=== PATIENT | female | born 1980 | race Caucasian/White ===

== ENCOUNTER → 2018-01-29 10:55 | Outpatient (CLI) | payer OTHER, SELFPAY ==
--- NOTE | 2018-01-29 11:01 | RAD_ITS ---
STUDY: X-RAY - ABDOMEN/PELVIS REASON FOR EXAM: Female, 37 years old. Lower abdominal pain. Diarrhea. TECHNIQUE: AP supine and upright views of the abdomen and pelvis. COMPARISON: None. FINDINGS: Normal visualized lung bases. There is a moderate amount of colonic fecal material. There is no demonstrated free abdominal air. The visualized liver, spleen and kidneys are grossly normal in size and morphology. Bilateral tubal ligation. Normal visualized osseous structures. RAD/Abd Inc Decub and/or Erect IMPRESSION: Moderate amount of fecal material is seen in the colon. Electronically Signed: Arnoldo Eduardo MD at 11:30 EDT Tel [phone], Service support ,
[2018-01-29 12:10] LABS: Absolute Lymphocyte Count 1.42 X10^3/ul (0.83-4.51); Absolute Neutrophil Count 4.2 X10^3/uL (2.0-7.7); Basophil# 0.04 X10^3/uL; Basophil% 0.6 % (0-1); Eosinophil# 0.15 X10^3/uL; Eosinophils% 2.4 % (0-5); Hematocrit 44.3 % (37-47); Hemoglobin 14.7 g/dl (12.0-15.0); Lymphocyte # 1.42 X10^3/ul (4.0); Mean Corp Hgb Conc 33.2 g/gl (32-36); Mean Corpuscular Hgb 29.5 pg (27.0-32.0); Mean Platelet Vol. 12.4 fl (6.2-12.0); Monocyte% 6.5 % (0-10); Neutrophil # 4.15 X10^3/uL (2.7-7.7); Neutrophil % 67.3 % (47-70); Platelet Count 200 K/mm3 (150-450); RBC Distribution Width CV 12.9 % (11.6-14.6); RBC Distribution Width SD 42.1 fl (35.1-43.9); Red Blood Count 4.98 M/mm3 (4.2-5.4); White Blood Count 6.2 K/mm3 (4.4-11.0)
[2018-01-29 12:17] LABS: POSITIVE COUNT NO; POSITIVE DIFFERENTIAL NO; POSITIVE MORPHOLOGY NO
[2018-01-29 12:21] LABS: ALB/GLOB Ratio 1.4 RATIO (0.9-2.4); AST(SGOT) 13 U/L (15-37); Alanine Aminotransfer ALT/SGPT 24 U/L (13-56); Albumin, Serum 4.2 g/dL (3.2-5.0); Alkaline Phosphatase 85 U/L (45-117); Anion Gap 6 (5-15); BUN 17 mg/dL (7-18); BUN/Creat Ratio 22.3 RATIO (10-20); Calcium,Total 8.7 mg/dL (8.5-10.1); Chloride 110 mmol/L (98-107); Creatinine, Serum 0.76 mg/dL (0.55-1.02); EST Glomerular Filtration Rate 90 mL/min (>60); Est Glom Filt Rate - Afr Amer 109 mL/min (>60); Globulin 2.9 g/dL (2.2-4.2); Glucose 93 mg/dL (74-106); Potassium 4.2 mmol/L (3.5-5.1); Protein, Total 7.1 g/dL (6.4-8.2); Sodium Level 143 mmol/L (136-145)
== END ==
PROVIDERS: Family Provider Family Medicine; PCP Family Medicine; Visit Provider Nurse Practitioner Adult Health
DX: R53.83 Other fatigue (principal); R10.30 Lower abdominal pain, unspecified
CPT/HCPCS: 36415; 74019; 80053; 85025

== ENCOUNTER 2018-02-18 08:16 | Day surgery (SDC) | payer OTHER, SELFPAY ==
[2018-02-18] VITALS (7 sets, daily range): BP systolic 81–125; BP diastolic 47–77; PULSE 79–99; RESP 18–20; TEMP 36.5–36.7; O2SAT 99–100; BMI 34.7
--- NOTE | 2018-02-18 | COLBX_PTH ---
PATIENT: NASRIN TALLEY LOC: EN U#:[id number] AGE/SX: 37/F ROOM: RE02/18/[address]: Dr. Joel Barbour MD : 1980 BED: DIS: 02/18/2018 SPEC #: [id number] RECD: 02/18/18 13:32 STATUS: BRADY REJesus #: [id number] RIGO: 02/18/18 00:[address]: Joel Barbour DEPT: SURGICAL PATHOLOGY RECD BY: Lew Murdock ENTERED: 02/18/18 13:32 SP TYPE: COLON BX OTHR DR: Dr. Socrates Wiseman MD Tissues: COLON BIOPSY Procedures: Surgery Specimen Level IV HEADER OPERATION: Colonoscopy PRE-OP DIAGNOSIS: Screen TISSUE SUBMITTED: Random colonic biopsy MICROSCOPIC DIAGNOSIS Colon, random biopsy: Fragments of colonic mucosa, no pathologic diagnosis. SJ:soumya 02/19/18 MICROSCOPIC DESCRIPTION Slides are reviewed. GROSS DESCRIPTION Received in fixative is one container labeled with the patient's name and designated random colonic biopsy. The specimen consists of multiple irregular fragments of light hogue soft tissue that in aggregate measure 1.5 x 0.4 x 0.1 cm. The specimen is totally submitted in one cassette. / SJ:soumya 02/18/18 TC:4 CPT: 28017
--- NOTE | 2018-02-18 09:32 | OP.PCM_ITS ---
Problem List (1) Hemorrhage of anus and rectum Status: Acute Report of Operation Date of Procedure: 02/18/18 Pre-Operative Diagnosis: k62.5 rectal bleeding Post-Operative Diagnosis: Same Surgery/Procedure Performed:: [id number] colonoscopy with random colonic biopsies Type of Anesthesia:: MAC Anesthesiologist: Sher Potts Description of Procedure: Patient was brought into the endoscopy suite. Placed on the left lateral decubitus position. Was given graded anesthesia. The scope was inserted into the rectum. The scope was directed through the sigmoid colon, descending colon , transverse colon, ascending colon, and into the cecum. Operative findings: 1. Cecum: Normal appearance no mass lesions normal ileocecal valve. 2. Ascending colon: Normal appearance no mass lesions. 3. Transverse colon: Normal appearance no mass lesions. 4. Descending colon: Normal appearance no mass lesions. 5. Sigmoid colon: Normal appearance no mass lesions a few scattered diverticuli were seen all small mouth. 6. Rectum: Normal appearance no mass lesions she had a few internal hemorrhoids identified. Random colonic biopsies were performed from the cecum to the rectum. The mucosa all look normal throughout the colon. With a few internal hemorrhoids I believe this is the most likely source of the bleeding. Scope was withdrawn digital rectal exam was performed showing no masses within the anus. Patient had an excellent bowel prep the mucosal all look normal she has a stable colonoscopy and will not need to have a repeat colonoscopy for 10 years. - Admit VTE Documentation VTE Present on Admission: No VTE Mechan Device Prophylaxis: None VTE Pharm Prophylaxis ordered?: No Reason prophylaxis not ordered:: Treatment Not Indicated
== END 2018-02-18 10:20 | disposition home or self-care (01) ==
LOC: EN 08:17 → AC 08:18
PROVIDERS: Family Provider Family Medicine; PCP Family Medicine; Visit Provider Surgery
PROC: 0DJD8ZZ Inspection of Lower Intestinal Tract, Via Natural or Artificial Opening Endoscopic (ICD-10-PCS; CPT 45378; principal; 2018-02-18 09:25)
DX: K64.8 Other hemorrhoids (principal); J45.909 Unspecified asthma, uncomplicated; K21.9 Gastro-esophageal reflux disease without esophagitis; E28.2 Polycystic ovarian syndrome
CPT/HCPCS: 45380; 88305; J7120

== ENCOUNTER 2018-02-20 01:51 | Emergency (ER) | payer OTHER, SELFPAY ==
[2018-02-20 01:52] VITALS: BP 145/104; PULSE 18; RESP 16; TEMP 36.8; O2SAT 99; BMI 35.9
[2018-02-20] MEDS: Dicyclomine 20 MG/2 ML Vial IM (02:31)
[2018-02-20 02:32] LABS: Bacteria 0 SEEN /hpf (None Seen); Mucous, Urine 0 SEEN /hpf (<or=2+); Red Blood Cells-Urine 0 SEEN /hpf (0-5)
--- NOTE | 2018-02-20 02:33 | ED.VIS.GEN ---
History of Present Illness Chief Complaint: Abd Pain Informant: Patient Onset: Hours - 9 Context: Gradual Onset Timing: Continuous Quality: dull ache w/ intermittent sharp pains Location: suprapubic Current Severity: Moderate Maximum Severity: Moderate Worsened by: nothing Relieved by: nothing despite passing flatus Associated Symptoms: some discomfort in low back, unk if related. no fevers, n/v. Narrative: Has been having small amounts of bright red blood per rectum for the past couple months, and had a colonoscopy 2 days ago in workup for this. Performed by Dr. Barbour, patient states that he told her everything looked fine but we are awaiting biopsies to look for signs of microcolitis. She has been eating and drinking but has not had a bowel movement since her colonoscopy yet, although she is passing flatus. She did not have these pains prior to the colonoscopy, and the day afterwards was uneventful. She denies any bladder symptoms, vaginal discharge or bleeding. Her last normal menstrual period was about 3 weeks ago and she has been regular. Prior similar symptoms: No Past Medical History - Allergies and Home Meds Allergies/Adverse Reactions: Allergies No Known Allergies Allergy (Verified 02/20/18 01:55) Home Medications: Home Medications Medication Instructions Recorded albuterol sulfate HFA 90 2 puff INHALATION Q6H 02/02/18 mcg/actuation aerosol inhaler docusate sodium 100 mg capsule 100 mg PO BID 02/02/18 Naproxen [Naprosyn] 500 mg PO BID PRN #20 tab 02/20/18 Primary Care Physician: Socrates Wiseman MD [Primary Care Provider] - Doctors: Dr. Barbour Past Medical History: None Smoking Status: Never smoker Drugs: None Review of Systems All systems negative except as indicated Gastrointestinal: Reports: Abdominal pain, Hematochezia Musculoskeletal: Reports: Back pain - low, nonlateralizing. has noticed off and on since having BRBPR. Physical Exam Vital Signs/Narrative: Vital Signs Temp Pulse Resp BP Pulse Ox 02/20/18 01:52 98.2 F 18 L 16 145/104 H 99 Inital Vital Signs reviewed: Yes General: Well nourished, Well developed, - - well-appearing, no acute distress Head: Normocephalic, Atraumatic Eyes: Perrl, EOMI ENT: Moist mucous membranes, No rhinorrhea Neck: Supple, Nontender Cardiovascular: Regular rate, Regular rhythm, No murmurs Respiratory: No distress, CTA bilaterally, Chest nontender Abdomen: Soft, Nondistended, Normal bowel sounds, No masses, Tender - suprapubic and LLQ. Negative for: Guarding, Rebound tenderness Back: Nontender, Normal Inspection. Negative for: CVA tenderness Extremities: Nontender, No edema Skin: Normal color, No rash Neurological: Alert, Oriented x3, Cranial nerves II-XII grossly intact, Normal Strength, Normal Sensation, Normal Gait Psychological: Normal affect Diagnostic/Tx/Re-eval Impressions Abdomen/Pelvis CT 02/20/18 03:23 IMPRESSION: No evidence of acute intestinal pathology or acute obstructive uropathy. Free pelvic fluid. A mass projects from the left anterior uterus measuring 4.0 x 3.6 cm, likely a fibroid. Supraumbilical anterior abdominal wall fat herniation. Electronically Signed: Tone Schwartz MD at 3:59 EDT Tel , Service support , 02/20/18 03:23 CT Abd [Abdomen/Pelvis without Cont] [CT] Stat Laboratory Results 02/20/18 02/20/18 02/20/18 Range/Units 02:02 02:02 02:10 WBC 7.5 (4.4-11.0) K/mm3 RBC 4.80 (4.2-5.4) M/mm3 Hgb 13.9 (12.0-15.0) g/dl Hct 41.9 (37-47) % MCV 87.3 (81-99) fL MCH 29.0 (27.0-32.0) pg MCHC 33.2 (32-36) g/gl RDW 12.7 (11.6-14.6) % RDW Differential 40.8 (35.1-43.9) fl Plt Count 185 (150-450) K/mm3 MPV 12.1 H (6.2-12.0) fl Immature Gran % (Auto) 0.100 (0.0-0.9) % Neut % (Auto) 61.3 (47-70) % Lymph % (Auto) 28.9 (19-41) % [place] % (Auto) 6.1 (0-10) % Eos % (Auto) 3.3 (0-5) % Baso % (Auto) 0.3 (0-1) % Absolute Neuts (auto) 4.6 (2.0-7.7) X10^3/uL Absolute Lymphs (auto) 2.17 (0.83-4.51) X10^3/ul Total Counted Not Reportable Sodium (136-145) mmol/L Potassium (3.5-5.1) mmol/L Chloride (98-107) mmol/L Carbon Dioxide (21.0-32.0) mmol/L Anion Gap (5-15) BUN (7-18) mg/dL Creatinine (0.55-1.02) mg/dL Estim Creat Clear Calc ml/min Est GFR (MDRD) Af Amer (>60) mL/min Est GFR (MDRD) Non-Af (>60) mL/min BUN/Creatinine Ratio (10-20) RATIO Glucose (74-106) mg/dL Calcium (8.5-10.1) mg/dL Urine Color Yellow (Yellow) Urine Clarity Clear (Clear) Urine pH 6.0 (5.0 - 8.0) Ur Specific [place] 1.025 (1.002-1.030) Urine Protein 15 H (Negative) mg/dl Urine Glucose (UA) Normal (Normal) mg/dl Urine Ketones Negative (Negative) mg/dl Urine Occult Blood Negative (Negative) /ul Urine Nitrite Negative (Negative) Urine Bilirubin Negative (Negative) mg/dL Urine Urobilinogen Normal (Normal) mg/dl Ur Leukocyte Esterase 25 H (Negative) /ul Urine RBC 0 SEEN (0-5) /hpf Urine WBC 0-5 SEEN (0-5) /hpf Ur Squamous Epith Cells 5-10 SEEN (5-10) /hpf Urine Bacteria 0 SEEN (None Seen) /hpf Urine Mucus 0 SEEN (<or=2+) /hpf Urine Test Negative Negative 02/20/18 Range/Units 02:10 WBC (4.4-11.0) K/mm3 RBC (4.2-5.4) M/mm3 Hgb (12.0-15.0) g/dl Hct (37-47) % MCV (81-99) fL MCH (27.0-32.0) pg MCHC (32-36) g/gl RDW (11.6-14.6) % RDW Differential (35.1-43.9) fl Plt Count (150-450) K/mm3 MPV (6.2-12.0) fl Immature Gran % (Auto) (0.0-0.9) % Neut % (Auto) (47-70) % Lymph % (Auto) (19-41) % [place] % (Auto) (0-10) % Eos % (Auto) (0-5) % Baso % (Auto) (0-1) % Absolute Neuts (auto) (2.0-7.7) X10^3/uL Absolute Lymphs (auto) (0.83-4.51) X10^3/ul Total Counted Sodium 141 (136-145) mmol/L Potassium 3.7 (3.5-5.1) mmol/L Chloride 108 H (98-107) mmol/L Carbon Dioxide 27.0 (21.0-32.0) mmol/L Anion Gap 6 (5-15) BUN 17 (7-18) mg/dL Creatinine 0.88 (0.55-1.02) mg/dL Estim Creat Clear Calc 81.94 ml/min Est GFR (MDRD) Af Amer 93 (>60) mL/min Est GFR (MDRD) Non-Af 77 (>60) mL/min BUN/Creatinine Ratio 19.4 (10-20) RATIO Glucose 104 (74-106) mg/dL Calcium 8.6 (8.5-10.1) mg/dL Urine Color (Yellow) Urine Clarity (Clear) Urine pH (5.0 - 8.0) Ur Specific [place] (1.002-1.030) Urine Protein (Negative) mg/dl Urine Glucose (UA) (Normal) mg/dl Urine Ketones (Negative) mg/dl Urine Occult Blood (Negative) /ul Urine Nitrite (Negative) Urine Bilirubin (Negative) mg/dL Urine Urobilinogen (Normal) mg/dl Ur Leukocyte Esterase (Negative) /ul Urine RBC (0-5) /hpf Urine WBC (0-5) /hpf Ur Squamous Epith Cells (5-10) /hpf Urine Bacteria (None Seen) /hpf Urine Mucus (<or=2+) /hpf Urine Test Negative - Medical Decision Making Initially labs were obtained, they are all normal including a white blood count and differential. She was given Bentyl, but it did not help at all and she wanted something else for pain. I reviewed her colonoscopy report and she did have some diverticuli in the sigmoid colon. Given her left lower quadrant tenderness, I chose to CT her to verify that she did not have early acute diverticulitis. The CT showed no signs of colonic inflammation or stranding, but did show some free fluid and a mass coming off of the uterus that appeared consistent with a fibroid. It is plausible that she ruptured an ovarian cyst that would be responsible for the free fluid. She has nothing suggesting hemorrhage. She is clinically and hemodynamically stable and feels better after a dose of morphine. Will discharge her home to follow-up with her SENIOR NURSE MANAGER for further evaluation, ultrasound is not available at this hour in the middle of the night, I do not think she needs emergently evaluated for torsion or other emergency ovarian process. She is comfortable with this plan will take NSAIDs as needed for pain. ED Disposition - Plan for ED Patient: Disposition: Home or Assisted Living Chief Complaint: Abd Pain Diagnosis: LLQ abdominal pain, Diverticulosis Instructions: ED Pelvic Pain [facility] Prescriptions: Naproxen [Naprosyn] 500 mg PO BID PRN #20 tab Referrals: Socrates Wiseman MD [Primary Care Provider] - 3-5 Days if not improving (or with your SENIOR NURSE MANAGER)
[2018-02-20 02:35] LABS: Color, Urine Yellow (Yellow); Glucose, Dipstick Normal (Normal); Ketone-Dipstick Negative (Negative); Leukocyte Esterase-Dipstick 25 /ul (Negative); Nitrite-Dipstick Negative (Negative); Occult Blood-Urine Negative /ul (Negative); Protein-Dipstick 15 mg/dl (Negative); Specific Gravity, Urine 1.025 (1.002-1.030); Urine Bilirubin Dipstick Negative (Negative); Urine Clarity Clear (Clear); Urine Urobilinogen Normal (Normal)
[2018-02-20 02:38] LABS: Absolute Lymphocyte Count 2.17 X10^3/ul (0.83-4.51); Absolute Neutrophil Count 4.6 X10^3/uL (2.0-7.7); Basophil# 0.02 X10^3/uL; Basophil% 0.3 % (0-1); Eosinophil# 0.25 X10^3/uL; Eosinophils% 3.3 % (0-5); Hematocrit 41.9 % (37-47); Hemoglobin 13.9 g/dl (12.0-15.0); Lymphocyte # 2.17 X10^3/ul (4.0); Lymphocyte % 28.9 % (19-41); Mean Corp Hgb Conc 33.2 g/gl (32-36); Mean Corpuscular Volume 87.3 fL (81-99); Mean Platelet Vol. 12.1 fl (6.2-12.0); Monocyte# 0.46 X10^3/uL; Monocyte% 6.1 % (0-10); Neutrophil # 4.59 X10^3/uL (2.7-7.7); Neutrophil % 61.3 % (47-70); Platelet Count 185 K/mm3 (150-450); RBC Distribution Width CV 12.7 % (11.6-14.6); RBC Distribution Width SD 40.8 fl (35.1-43.9); White Blood Count 7.5 K/mm3 (4.4-11.0)
[2018-02-20 02:39] LABS: POSITIVE COUNT NO; POSITIVE DIFFERENTIAL NO; POSITIVE MORPHOLOGY NO
[2018-02-20 02:39] LABS: Internal QC Validated? YES +Cl - CLEAR BKGD; Pregnancy, Urine Negative Negative
[2018-02-20 02:43] LABS: Anion Gap 6 (5-15); BUN 17 mg/dL (7-18); BUN/Creat Ratio 19.4 RATIO (10-20); Calcium,Total 8.6 mg/dL (8.5-10.1); Chloride 108 mmol/L (98-107); Creatinine, Serum 0.88 mg/dL (0.55-1.02); EST Glomerular Filtration Rate 77 mL/min (>60); Est Glom Filt Rate - Afr Amer 93 mL/min (>60); Estimated Creatinine Clearance 81.94 ml/min; Glucose 104 mg/dL (74-106); Potassium 3.7 mmol/L (3.5-5.1); Sodium Level 141 mmol/L (136-145)
[2018-02-20 02:46] LABS: Squamous Epithelial Cells - UA 5-10 SEEN /hpf (5-10); White Blood Cells 0-5 SEEN /hpf (0-5)
--- NOTE | 2018-02-20 03:23 | CT_ITS ---
STUDY: CT ABDOMEN AND PELVIS WITHOUT CONTRAST REASON FOR EXAM: Female, 37 years old. Left lower quadrant pain with recent colonoscopy RADIATION DOSAGE (If Supplied By Facility): CTDIvol = ( 18.35 ) mGy, DLP = ( 962.81 ) mGycm TECHNIQUE: Transaxial images were obtained from the dome of the diaphragm to the symphysis pubis without oral contrast, and without intravenous contrast. Sagittal and coronal images were reconstructed. Individualized dose optimization techniques were used for this CT. COMPARISON: None. FINDINGS: The visualized lung bases are unremarkable. The visualized portions of the heart are within normal limits. Normal liver. There is non-visualization of the gallbladder, which is reportedly absent. Normal spleen. Normal pancreas. Normal bilateral adrenal glands. Normal right kidney. Normal left kidney. Normal visualized stomach. Normal small intestine. Normal colon. The appendix is visualized and appears normal. Normal abdominal aorta. Normal inferior vena cava. Normal retroperitoneum. Normal urinary bladder. Fallopian tube clips. Free pelvic fluid. A mass projects from the left anterior uterus measuring 4.0 x 3.6 cm, likely a fibroid. Supraumbilical anterior abdominal wall fat herniation. Normal osseous structures. CT/Abdomen/Pelvis without Cont IMPRESSION: No evidence of acute intestinal pathology or acute obstructive uropathy. Free pelvic fluid. A mass projects from the left anterior uterus measuring 4.0 x 3.6 cm, likely a fibroid. Supraumbilical anterior abdominal wall fat herniation. Electronically Signed: Tone Schwartz MD at 3:59 EDT Tel , Service support ,
[2018-02-20] MEDS: Morphine 4 MG/ML Syringe IV (03:57)
[2018-02-20 03:58] VITALS: BP 101/67; PULSE 62; RESP 14; O2SAT 97
[2018-02-20] MEDS: Ondansetron 4 MG/2 ML Vial IV (04:30)
[2018-02-20 04:55] VITALS: BP 113/82; PULSE 66; RESP 18; O2SAT 98
== END 2018-02-20 04:56 | disposition home or self-care (01) ==
PROVIDERS: Emergency Provider Emergency Medicine; Family Provider Family Medicine; PCP Family Medicine
DX: R10.32 Left lower quadrant pain (principal); K57.90 Diverticulosis of intestine, part unspecified, without perforation or abscess without bleeding
CPT/HCPCS: 74176; 80048; 81001; 81025; 85025; 99285; A4216

== ENCOUNTER 2018-08-08 11:53 | Emergency (ER) | payer OTHER, SELFPAY ==
[2018-08-08 11:57] VITALS: BP 143/87; PULSE 88; RESP 22; TEMP 36.6; O2SAT 100; BMI 37.3
[2018-08-08] MEDS: Dicyclomine 20 MG/2 ML Vial IM (12:31)
[2018-08-08] MEDS: Ondansetron 4 MG/2 ML Vial IV (12:31)
[2018-08-08] MEDS: Ketorolac 30 MG/ML Syringe IV (12:31)
[2018-08-08] MEDS: 0.9% Normal Saline 1,000 ML 150 ML IV (12:31)
[2018-08-08 12:51] LABS: Absolute Lymphocyte Count 1.99 X10^3/ul (0.83-4.51); Absolute Neutrophil Count 15.2 X10^3/uL (2.0-7.7); Basophil# 0.01 X10^3/uL; Basophil% 0.1 % (0-1); Eosinophil# 0.13 X10^3/uL; Eosinophils% 0.7 % (0-5); Hematocrit 52.9 % (37-47); Hemoglobin 17.4 g/dl (12.0-15.0); Lymphocyte # 1.99 X10^3/ul (4.0); Lymphocyte % 10.7 % (19-41); Mean Corp Hgb Conc 32.9 g/gl (32-36); Mean Corpuscular Hgb 29.6 pg (27.0-32.0); Mean Corpuscular Volume 90.1 fL (81-99); Mean Platelet Vol. 11.6 fl (6.2-12.0); Monocyte# 1.17 X10^3/uL; Monocyte% 6.3 % (0-10); Neutrophil # 15.22 X10^3/uL (2.7-7.7); Neutrophil % 81.7 % (47-70); Platelet Count 219 K/mm3 (150-450); RBC Distribution Width CV 13.4 % (11.6-14.6); Red Blood Count 5.87 M/mm3 (4.2-5.4); White Blood Count 18.6 K/mm3 (4.4-11.0)
[2018-08-08 12:52] LABS: POSITIVE COUNT NO; POSITIVE DIFFERENTIAL NO; POSITIVE MORPHOLOGY NO
--- NOTE | 2018-08-08 13:00 | CT_ITS ---
STUDY: CT ABDOMEN AND PELVIS WITH CONTRAST REASON FOR EXAM: Female, 38 years old. Mid abdominal pain RADIATION DOSAGE (If Supplied By Facility): CTDIvol = ( 23.76 ) mGy, DLP = ( 1297.02 ) mGycm TECHNIQUE: Transaxial images were obtained from the dome of the diaphragm to the symphysis pubis with oral contrast. 100mL ml of Isovue 300 contrast was administered. Sagittal and coronal images were reconstructed. # Of Images Including Paperwork: [id number] Individualized dose optimization techniques were used for this CT. COMPARISON: 02/20/2018 FINDINGS: The visualized lung bases are unremarkable. The visualized portions of the heart are within normal limits. Liver is within normal limits as are the small flash fill hemangioma in the right lobe of the liver measuring roughly 1.4 cm. Normal gallbladder and extrahepatic biliary system. Normal spleen. Normal pancreas. Normal bilateral adrenal glands. Normal right kidney. Normal left kidney. Normal visualized stomach. Normal small intestine. In the region of the ascending colon, there is severe circumferential wall thickening and edema suggesting colitis. Remainder of the colon is essentially within normal limits for age There is non-visualization of the appendix. Normal abdominal aorta. Normal inferior vena cava. Normal retroperitoneum. Normal urinary bladder. Normal visualized uterus. Uterine fibroids are noted. Small amount of pelvic free fluid as well as fluid in the right paracolic gutter. There is a small umbilical hernia containing fat. There are diffuse degenerative changes of the visualized lumbar spine. CT/Abdomen/Pelvis WITH Contrast IMPRESSION: Circumferential wall thickening and edema involving the ascending colon suggesting colitis. Small amount of pelvic free fluid. Remaining findings are chronic as above Electronically Signed: Bogdan Hickey DO at 15:36 EDT Tel , Service support ,
[2018-08-08 13:05] LABS: AST(SGOT) 29 U/L (15-37); Alanine Aminotransfer ALT/SGPT 31 U/L (13-56); Albumin, Serum 3.8 g/dL (3.2-5.0); Alkaline Phosphatase 104 U/L (45-117); Anion Gap 7 (5-15); BUN 17 mg/dL (7-18); BUN/Creat Ratio 14.5 RATIO (10-20); Bilirubin, Direct 0.14 mg/dL (0.00-0.30); Calcium,Total 8.9 mg/dL (8.5-10.1); Chloride 103 mmol/L (98-107); Creatinine, Serum 1.17 mg/dL (0.55-1.02); EST Glomerular Filtration Rate 55 mL/min (>60); Est Glom Filt Rate - Afr Amer 67 mL/min (>60); Estimated Creatinine Clearance 61.03 ml/min; Globulin 3.4 g/dL (2.2-4.2); Glucose 117 mg/dL (74-106); Protein, Total 7.2 g/dL (6.4-8.2); Sodium Level 137 mmol/L (136-145)
[2018-08-08 13:11] LABS: Pregnancy, Serum, hCG Quali. NEGATIVE Negative (0-9 Nonpreg)
--- NOTE | 2018-08-08 13:57 | ED.DCSUM_ITS ---
- ER Visit Summary Date of Service: 08/08/18 Chief Complaint: Abdominal pain History of Present Illness: The patient is a 38 F who states she went to the restroom this morning had a bowel movement. She became lightheaded and sweaty. She felt nauseated and had diarrhea. After getting up from the commode she had abdominal cramping with occasional sharp stabbing pain. It does wrap around her side somewhat. She has had prior cholecystectomy. Physical Examination: Vital signs unremarkable. Patient is lying in bed no acute distress. Head neck examination reveals flushed cheeks, but otherwise unremarkable. Heart is regular rate and rhythm. Lung sounds are clear. Abdomen is soft with mild diffuse tenderness. No guarding or rebound. Hypoactive bowel sounds are noted throughout. Test Results: CBC was a white count of 18.6 with 81% neutrophils. Hemoglobin is concentrated at 17.4. Chemistry studies significant for a creatinine of 1.17. LFTs normal. test negative. Urinalysis is unremarkable. CT abdomen pelvis with contrast reveals circumferential wall thickening and edema involving the ascending colon suggestive of colitis. Emergency Department Course and Treatment: Patient was given Toradol, Zofran, Bentyl, and IV fluids. On repeat evaluation she is resting comfortably. CT staff did advise that her IV contrast did infiltrate in her left upper arm. This was reevaluated and is not tender at this time. Test results are discussed with the patient and family at bedside. She just underwent colonoscopy in February of this year with no evidence of ulcerative colitis, Crohn's disease, etc. Patient be treated with Cipro and Flagyl, first doses given here. She is advised to follow with her primary care physician in 1 week. Treatment Plan: [] Disposition: Discharge Impression: Colitis This note was generated with [employer] dictation software. It may contain incorrect words, spelling, and punctuation that were not noted in review of the chart prior to signing ED Disposition - Plan for ED Patient: Chief Complaint: Abd Pain Referrals: Socrates Wiseman MD [Primary Care Provider] -
[2018-08-08 14:00] VITALS: BP 138/78; PULSE 78; RESP 16; O2SAT 98
[2018-08-08 14:45] LABS: Bacteria 0 SEEN /hpf (None Seen); Mucous, Urine 0 SEEN /hpf (<or=2+); Red Blood Cells-Urine 0 SEEN /hpf (0-5)
[2018-08-08 14:47] LABS: Color, Urine Yellow (Yellow); Glucose, Dipstick Normal (Normal); Ketone-Dipstick Negative (Negative); Leukocyte Esterase-Dipstick 25 /ul (Negative); Nitrite-Dipstick Negative (Negative); Occult Blood-Urine Negative /ul (Negative); Protein-Dipstick 30 mg/dl (Negative); Specific Gravity, Urine 1.025 (1.002-1.030); Urine Bilirubin Dipstick Negative (Negative); Urine Clarity Sl. Cloudy (Clear); Urine Urobilinogen Normal (Normal)
[2018-08-08 14:52] LABS: Squamous Epithelial Cells - UA 0-5 SEEN /hpf (5-10); White Blood Cells 0-5 SEEN /hpf (0-5)
--- NOTE | 2018-08-08 15:50 | ED.DEP ---
ED Disposition - Plan for ED Patient: Disposition: Home or Assisted Living Chief Complaint: Abd Pain Instructions: ED Gastroenteritis Bacterial Prescriptions: proMETHazine tablet [Phenergan] 25 mg PO Q6H PRN PRN #10 tablet PRN Reason: Nausea Dicyclomine HCl [Bentyl] 20 mg PO TIDAC #20 capsule Ciprofloxacin [Cipro] 500 mg PO BID #20 tablet Metronidazole [Flagyl] 500 mg PO Q6H #40 tablet Referrals: Socrates Wiseman MD [Primary Care Provider] - 1 Week
[2018-08-08] MEDS: Ciprofloxacin 500 MG Tablet PO (16:05)
[2018-08-08] MEDS: metroNIDAZOLE 500 MG Tablet PO (16:05)
[2018-08-08 16:10] VITALS: BP 96/69; PULSE 76; RESP 16; O2SAT 99
--- NOTE | 2018-08-08 16:11 | ED.RN ---
REVIEWED D/C INSTRUCTIONS, FOLLOW UP CARE, PRESCRIPTIONS, AND S/S THAT WOULD WARRANT A RETURN TO THE ED WITH PT. PT VERBALIZED AN UNDERSTANDING AND DENIES FURTHER QUESTIONS FOR THIS RN. PT SKIN P/W/D, RESP EVEN AND UNLABORED, PT A&O X 3, NO DISTRESS NOTED. PT AMBULATED OUT OF ED, GAIT STEADY.
== END 2018-08-08 16:13 | disposition home or self-care (01) ==
PROVIDERS: Emergency Provider Emergency Medicine; Family Provider Family Medicine; PCP Family Medicine
DX: K52.9 Noninfective gastroenteritis and colitis, unspecified (principal); Z90.49 Acquired absence of other specified parts of digestive tract; K21.9 Gastro-esophageal reflux disease without esophagitis; J45.909 Unspecified asthma, uncomplicated; E28.2 Polycystic ovarian syndrome
CPT/HCPCS: 74177; 80048; 80076; 81001; 84703; 85025; 99285; J7030; J7040; Q9967; A4216; J2405

== ENCOUNTER → 2018-11-27 14:31 | Outpatient (CLI) | payer OTHER, SELFPAY ==
--- NOTE | 2018-11-27 14:34 | BI_ITS ---
MAMMOGRAPHY - BILATERAL SCREENING REASON FOR EXAM: Female, 38 years old. Routine annual screening examination. PERTINENT HISTORY: Non-contributory. TECHNIQUE: Digital bilateral breast marlene (3D mammographic acquisition) in the CC and MLO projections. 2-D mediolateral oblique (MLO) and craniocaudad (CC) views of both breasts were obtained. CAD: Full Field Digital Mammography with Computer Added Detection was performed. COMPARISON: None. Baseline examination. FINDINGS: Breast Composition: There are scattered areas of fibroglandular density. There are no dominant masses or suspicious calcifications. No other significant abnormalities are identified. BI/SCREENING MAMM (CAD), BILAT IMPRESSION: Negative screening mammogram. Yearly followup mammogram recommended. (A) ASSESSMENT CATEGORY: BIRADS Category 1: Negative. A letter regarding these results will be sent to the patient by the facility within 30 days. Approximately 10% of breast cancers are not detected by mammography. A normal mammogram should not delay biopsy of a clinically suspicious abnormality. [id number] Electronically Signed: Arnoldo Eduardo MD at 8:56 EST , Service support ,
== END ==
PROVIDERS: Family Provider Family Medicine; PCP Family Medicine; Referring Provider Obstetrics & Gynecology; Visit Provider Obstetrics & Gynecology
DX: Z12.31 Encounter for screening mammogram for malignant neoplasm of breast (principal)
CPT/HCPCS: 77063; 77067

== ENCOUNTER → 2019-01-25 | Outpatient (CLI) | payer OTHER, SELFPAY ==
--- NOTE | 2019-01-25 09:05 | RAD_ITS ---
STUDY: X-RAY - ESOPHAGUS (BARIUM SWALLOW) WITH FLUOROSCOPY REASON FOR EXAM: Female, 38 years old. Dysphagia for solids. TECHNIQUE: 17 view(s) of the esophagus were obtained following swallowing of barium. FLUOROSCOPY TIME (if supplied): (0:52) minutes/seconds COMPARISON: None. FINDINGS: There is no demonstrated esophageal foreign body. There is no demonstrated stricture or mucosal abnormality. Normal gastroesophageal junction, without a demonstrated hiatal hernia. The patient ingested a 12 mm tablet of barium. The tablet is trapped in the distal portion of the esophagus although no anatomical region is seen. Normal visualized aortic arch and descending thoracic aorta. Normal visualized pulmonary parenchyma. Normal visualized osseous structures of the thorax. RAD/Esophagus Only IMPRESSION: Normal plain film x-ray examination (barium swallow) of the esophagus. The 12 mm tablet of barium is trapped in the distal esophagus. Electronically Signed: Arnoldo Eduardo, at 9:10 EDT , Service support ,
== END | disposition home or self-care (01) ==
LOC: RAD 08:59
PROVIDERS: Family Provider Family Medicine; PCP Family Medicine; Referring Provider Family Medicine; Visit Provider Family Medicine
DX: R13.10 Dysphagia, unspecified (principal)
CPT/HCPCS: 74220

== ENCOUNTER 2019-07-15 21:29 | Emergency (ER) | payer OTHER, SELFPAY ==
[2019-07-15 21:30] VITALS: BP 160/103; PULSE 85; RESP 18; TEMP 36.8; O2SAT 97; BMI 36.3
[2019-07-15] MEDS: DiphenhydrAMINE 50 MG/ML Syringe 25 MG IV (21:57)
[2019-07-15] MEDS: Ketorolac 30 MG/ML Syringe 15 MG IV (21:57)
[2019-07-15] MEDS: Metoclopramide 10 MG/2 ML Vial IV (21:58)
--- NOTE | 2019-07-15 22:07 | ED.VIS.GEN ---
History of Present Illness Chief Complaint: Headache Detail of Chief Complaint: Lateral throbbing headache with eye droop Informant: Patient, Significant Other Onset: Today Context: Sudden Onset Timing: Continuous Quality: Throbbing headache Location: Left side Current Severity: Moderate Maximum Severity: Severe Worsened by: Light Relieved by: Nothing Associated Symptoms: Nausea Narrative: Patient is a 39-year-old woman with history of migraine headaches who presents with unilateral headache. She is concerned she has a eyelid droop. She denies any itching. Denies drainage from the eyes. She does complain of mild photophobia. She denies sonophobia. She denies vomiting. She denies neck pain or neck stiffness. Denies trouble with speech or swallowing. She denies troubles with balance.She has no URI symptoms or congestion. She denies cardiac respiratory symptoms. She denies urologic symptoms. Prior similar symptoms: Yes Recent Illness/Hospitalization: No - Past Medical History (1) History of migraine headaches Status: Acute (2) Hemorrhage of anus and rectum Status: Acute Past Medical History - Allergies and Home Meds Allergies/Adverse Reactions: Allergies No Known Allergies Allergy (Verified 07/15/19 21:33) Primary Care Physician: Socrates Wiseman MD [Primary Care Provider] - Prior records reviewed: Yes Surgical History: no surgical history Lives: Spouse/ Significant Other Smoking Status: Never smoker Alcohol: None Drugs: None Review of Systems General: Denies: Chills, Fever, Malaise, Sweats Eyes: Reports: - - Photophobia. Denies: Visual changes - bilaterally, Blurred Vision - bilaterally, Diplopia ENT: Denies: Bilateral ear pain, Rhinorrhea, Sore throat Cardiovascular: Denies: Chest pain Respiratory: Denies: Dyspnea, Cough, Dyspnea on exertion Genitourinary: Denies: Dysuria, Hematuria, Frequency Musculoskeletal: Denies: Myalgias, Arthralgias, Neck pain, Back pain, Swelling, Extremity Pain, -, - Skin: Denies: Rash, Wounds Neurological: Reports: Headache. Denies: Weakness, Parasthesia, Numbness Hematologic: Denies: Easy bruising, Easy bleeding, Lymphadenopathy, -, - Allergy: Denies: Uticaria, Swelling of the mouth, Swelling of the tongue, -, - Physical Exam Vital Signs/Narrative: Vital Signs Temp Pulse Resp BP Pulse Ox 07/15/19 21:30 98.2 F 85 18 160/103 H 97 Inital Vital Signs reviewed: Yes General: Well nourished, Well developed, No Acute Distress Head: Normocephalic, Atraumatic Eyes: Perrl, EOMI. Negative for: Pale conjunctiva, Scleral icterus ENT: Moist mucous membranes, No rhinorrhea, TM's clear Neck: Supple, Nontender, No lymphadenopathy, No JVD Cardiovascular: Regular rate, Regular rhythm, No murmurs, Normal S1, Normal S2 Respiratory: No distress, CTA bilaterally, Chest nontender Abdomen: Soft, Nontender, Nondistended, Normal bowel sounds Rectal: Deferred Back: Nontender, Normal Inspection Extremities: Nontender, No edema Skin: Normal color, No rash, No Trauma. Negative for: Cyanosis, Diaphoresis, Jaundice Neurological: Alert, Oriented x3, Cranial nerves II-XII grossly intact, Normal Strength, Normal Sensation, Normal DTR, Normal Gait Psychological: Depressed Diagnostic/Tx/Re-eval - Medical Decision Making With history of migraines and unilateral throbbing headache associated with photophobia and nausea will treat for migraine headache. She received IV Benadryl, Reglan and Toradol. Will reassess 30 to 60 minutes after she receives the medication. She was reassessed at 2240. Patient improved her headache. She is smiling. Plan is to discharge to home ED Disposition - Plan for ED Patient: Disposition: Home or Assisted Living Diagnosis: Migraine headache without aura, Edema of left upper eyelid Instructions: ED, Migraine (Classical) Referrals: Socrates Wiseman MD [Primary Care Provider] - As Needed
[2019-07-15 23:02] VITALS: BP 148/78
== END 2019-07-15 23:03 | disposition home or self-care (01) ==
PROVIDERS: Emergency Provider Emergency Medicine; Family Provider Family Medicine; PCP Family Medicine
DX: G43.009 Migraine without aura, not intractable, without status migrainosus (principal); F32.9 Major depressive disorder, single episode, unspecified
CPT/HCPCS: 96374; 96375; 99283; J7030; A4216

== ENCOUNTER → 2019-09-23 13:51 | Outpatient (CLI) | payer OTHER, SELFPAY ==
--- NOTE | 2019-09-23 13:54 | BI_ITS ---
MAMMOGRAPHY - BILATERAL DIAGNOSTIC REASON FOR EXAM: Female, 39 years old. One-week history of left breast pain. PERTINENT HISTORY: Non-contributory. TECHNIQUE: Digital bilateral breast marlene (3D mammographic acquisition) in the CC and MLO projections. 2-D mediolateral oblique (MLO) and craniocaudad (CC) views of both breasts were obtained. CAD: Full Field Digital Mammography with Computer Added Detection was performed. COMPARISON: Comparison is made with prior examination of November 2018. FINDINGS: Breast Composition: There are scattered areas of fibroglandular density. There are no dominant masses or suspicious calcifications. No other significant abnormalities are identified. There has been no significant change since the prior study. BI/DIAG MAMM W/CAD, BILAT IMPRESSION: Stable bilateral diagnostic mammogram. With the patient''s history of left breast pain, correlation with ultrasound of the left breast is recommended. ASSESSMENT CATEGORY: BIRADS Category 0: Incomplete. Need additional imaging evaluation. A letter regarding these results will be sent to the patient by the facility within 30 days. Approximately 10% of breast cancers are not detected by mammography. A normal mammogram should not delay biopsy of a clinically suspicious abnormality. Electronically Signed: Arnoldo Eduardo, at 15:12 EST , Service support ,
--- NOTE | 2019-09-23 13:54 | US_ITS ---
STUDY: ULTRASOUND BREAST - LEFT REASON FOR EXAM: Female, 39 years old. Pain in the left breast. TECHNIQUE: Axial and longitudinal images of the LEFT breast were performed with a high resolution ultrasound transducer. # OF IMAGES: 24 COMPARISON: Comparison is made with prior mammogram done earlier today. FINDINGS: LEFT Breast: The upper outer quadrant of the left breast was examined ultrasound. No sonographic abnormality is seen. US/Breast Limited Unilateral IMPRESSION: No sonographic abnormality is seen. ASSESSMENT CATEGORY: BIRADS Category 1: Negative. A letter regarding these results will be sent to the patient by the facility within 30 days. Electronically Signed: Arnoldo Eduardo, at 15:32 EST , Service support ,
== END ==
PROVIDERS: Family Provider Family Medicine; PCP Family Medicine; Referring Provider Obstetrics & Gynecology; Visit Provider Obstetrics & Gynecology
DX: N63.21 Unspecified lump in the left breast, upper outer quadrant (principal)
CPT/HCPCS: 76642; 77062; 77066; G0279

== ENCOUNTER 2020-03-27 00:36 | Emergency (ER) | payer OTHER, SELFPAY ==
[2020-03-27 00:37] VITALS: BP 141/87; PULSE 88; RESP 18; TEMP 36.6; O2SAT 100; BMI 37.7
--- NOTE | 2020-03-27 00:43 | EKG12_ITS ---
Test Reason : CP Blood Pressure : / mmHG Vent. Rate : 092 BPM Atrial Rate : 092 BPM P-R Int : 172 ms QRS Dur : 074 ms QT Int : 368 ms P-R-T Axes : 020 005 028 degrees QTc Int : 455 ms Normal sinus rhythm Nonspecific ST and T wave abnormality Abnormal ECG Confirmed by SHIELA ROJAS, JENN ([id number]), electronic news gathering editor NEFTALY HAGEN ([id number]) on 03/28/2020 10:17:27 AM Referred By: CONNIE Confirmed By:JENN KUO MD
[2020-03-27] MEDS: Aspirin 81 MG TAB.CHEW 324 MG PO (00:48)
[2020-03-27 00:50] LABS: Absolute Lymphocyte Count 2.61 X10^3/uL (0.83-4.51); Absolute Neutrophil Count 6.3 X10^3/uL (2.0-7.7); Basophil# 0.05 X10^3/uL; Basophil% 0.5 % (0-1); Eosinophil# 0.31 X10^3/uL; Eosinophils% 3.1 % (0-5); Hematocrit 43.4 % (37-47); Lymphocyte # 2.61 X10^3/ul (4.0); Lymphocyte % 26.1 % (19-41); Mean Corp Hgb Conc 32.3 g/dL (32-36); Mean Corpuscular Hgb 29.2 pg (27.0-32.0); Mean Corpuscular Volume 90.4 fL (81-99); Mean Platelet Vol. 12.1 fl (6.2-12.0); Monocyte# 0.66 X10^3/uL; Monocyte% 6.6 % (0-10); NRBC Flagged by Analyzer 0 % (0-5); Neutrophil # 6.31 X10^3/uL (2.7-7.7); Neutrophil % 63.2 % (47-70); Platelet Count 204 K/mm3 (150-450); RBC Distribution Width CV 12.8 % (11.6-14.6); RBC Distribution Width SD 42.7 fl (35.1-43.9)
--- NOTE | 2020-03-27 00:53 | RAD_ITS ---
STUDY: X-RAY CHEST REASON FOR EXAM: Female, 39 years old. CHEST PAIN AND LEFT ARM NUMBNESS TECHNIQUE: Single AP portable view of the chest. COMPARISON: Right shoulder October 10, 2016. FINDINGS: The lungs are clear and expanded. There is no demonstrated pleural abnormality. Normal size heart. Normal mediastinum and kush. Normal visualized pulmonary arteries. Normal visualized aortic arch and descending thoracic aorta. Normal visualized thoracic spine. There is visualized calcific density adjacent to and inferior to the acromion on the right side compatible with degenerative change probable joint bodies. There is no demonstrated abnormality of the visualized soft tissue structures of the upper abdomen. RAD/Chest 1 View (Portable) IMPRESSION: Degenerative change right shoulder including osteochondral bodies. No visualized acute cardiopulmonary process. Electronically Signed: Cielo Montoya MD at 1:47 EDT Tel , Service support ,
[2020-03-27 01:06] LABS: Anion Gap 7 (5-15); BUN 17 mg/dL (7-18); BUN/Creat Ratio 17.6 RATIO (10-20); Chloride 109 mmol/L (98-107); Creatinine, Serum 0.97 mg/dL (0.55-1.02); EST Glomerular Filtration Rate 68 mL/min (>60); Est Glom Filt Rate - Afr Amer 82 mL/min (>60); Estimated Creatinine Clearance 72.89 ml/min; Glucose 120 mg/dL (74-106); Potassium 3.7 mmol/L (3.5-5.1); Sodium Level 142 mmol/L (136-145)
--- NOTE | 2020-03-27 01:27 | ED.VIS.GEN ---
History of Present Illness Chief Complaint: Chest Pain Informant: Patient Onset: Today - Patient reports, Yesterday - Early yesterday morning i.e. midnight she developed chest pain while lying in bed and remained present until 3:00 when she fell asleep. There is no associated symptoms with no numbness and no radiation. Context: Sudden Onset Timing: Intermittent Quality: Tight sensation Location: Left side of the chest Current Severity: Mild Maximum Severity: Moderate Worsened by: Nothing Relieved by: Nothing Associated Symptoms: This episode associated with numbness in left arm Narrative: Patient is a 39-year-old woman with no history of coronary disease no risk factors who presents with left-sided chest pain that started yesterday and another episode today. There are no exacerbating, precipitating relieving factors. She does have history of reflux. She states she has burning midsternal chest discomfort with GERD. She states this is located in the left side. There is no associated symptoms. There is no radiation to the back. She has no history of PE or DVT. She denies leg pain, swelling or discoloration. She denies any risk factors for VTE. She denies black or maroon stool. She denies fever, chills night sweats. Denies headache, ocular, visual or auditory symptoms. She denies any upper respiratory symptoms. She does have intolerance to greasy and fried foods. She is status post cholecystectomy. She does not have history of pancreatitis. Prior similar symptoms: No Recent Illness/Hospitalization: No - Past Medical History (1) History of migraine headaches Status: Acute Past Medical History - Allergies and Home Meds Allergies/Adverse Reactions: Allergies No Known Allergies Allergy (Verified 07/15/19 21:33) Prior records reviewed: Yes - Reticulitis/diverticulosis Surgical History: no surgical history Lives: Spouse/ Significant Other Smoking Status: Never smoker Alcohol: Rare Drugs: None Review of Systems General: Denies: Chills, Fever, Malaise, Subjective, Sweats, Weight loss ENT: Denies: Rhinorrhea, Sore throat Cardiovascular: Reports: Chest pain. Denies: Palpitations, Heart racing Respiratory: Denies: Dyspnea, Cough, Dyspnea on exertion, Orthopnea, Paroxysmal nocturnal dyspnea Gastrointestinal: Denies: Abdominal pain, Nausea, Vomiting, Diarrhea, Melena, Hematochezia Genitourinary: Denies: Dysuria, Hematuria, Frequency Musculoskeletal: Denies: Myalgias, Arthralgias, Neck pain, Back pain, Swelling, Extremity Pain, -, - Skin: Denies: Rash, Wounds Neurological: Reports: Numbness - Left upper extremity. Denies: Headache, Weakness Psych: Denies: Depression, Anxiety Endocrine: Denies: Polyuria, Polydipsia Physical Exam Vital Signs/Narrative: Vital Signs Temp Pulse Resp BP Pulse Ox 03/27/20 00:37 97.8 F 88 18 141/87 H 100 Inital Vital Signs reviewed: Yes General: Well nourished, Well developed, No Acute Distress Head: Normocephalic, Atraumatic Eyes: Perrl, EOMI ENT: Moist mucous membranes, No rhinorrhea Neck: Supple, Nontender, No lymphadenopathy, No JVD Cardiovascular: Regular rate, Regular rhythm, No murmurs, Normal S1, Normal S2 Respiratory: No distress, CTA bilaterally, Chest nontender Abdomen: Soft, Nontender, Nondistended, Normal bowel sounds Back: Nontender, Normal Inspection Extremities: Nontender, No edema, - - There is no asymmetry, swelling, discoloration, leg vein distention, palpable cords or tenderness along the distribution of the deep venous system. Skin: Normal color, No rash Neurological: Alert, Oriented x3, Cranial nerves II-XII grossly intact, Normal Strength, Normal Sensation, Normal DTR Psychological: Normal affect, Normal Mood Diagnostic/Tx/Re-eval Chest X-Ray - ED: 1 View, Read by ED Physician, Normal, Heart, Lungs, Mediastinum, Bony Structures, No Acute Disease 03/27/20 00:53 Chest 1 View (Portable) [RAD] Stat Laboratory Results 03/27/20 03/27/20 00:40 00:40 WBC 10.0 RBC 4.80 Hgb 14.0 Hct 43.4 MCV 90.4 MCH 29.2 MCHC 32.3 RDW Std Deviation 42.7 RDW Coeff of Davy 12.8 Plt Count 204 MPV 12.1 H Immature Gran % (Auto) 0.500 Neut % (Auto) 63.2 Lymph % (Auto) 26.1 [place] % (Auto) 6.6 Eos % (Auto) 3.1 Baso % (Auto) 0.5 Absolute Neuts (auto) 6.3 Absolute Lymphs (auto) 2.61 Nucleated RBC % 0 Sodium 142 Potassium 3.7 Chloride 109 H Carbon Dioxide 26.0 Anion Gap 7 BUN 17 Creatinine 0.97 Estim Creat Clear Calc 72.89 Est GFR (MDRD) Af Amer 82 Est GFR (MDRD) Non-Af 68 BUN/Creatinine Ratio 17.6 Glucose 120 H Calcium 9.0 Troponin I < 0.015 - Rhythm Strip Rhythm Strip: Sinus Rhythm Rate: 88 Ectopy: None - EKG Initial EKG Interpretation: Sinus Rhythm - Normal sinus rhythm ventricular rate of 92. [place] interval 172 ms. QRS duration 74 ms. QT duration 3 and 68 ms. [place] normal. Computer is reading ossific ST-T wave abnormalities, which is artifact. - Medical Decision Making Presents with atypical chest pain. Patient's heart score is 0. With 3 hours of pain yesterday and normal troponin and hours of pain today with a normal troponin it is my opinion this does not represent coronary etiology. Furthermore based on published study several years ago involving greater than 1000 patients know and had a significant cardiac event with normal EKG and normal troponin up to 90 days post ER visit. Patient was informed the cause of her pain is unknown. Recommend that she follow-up with her primary care physician for further work-up. Patient states she recently switched to [facility]. She does not know the name of the physician she is scheduled to see. Dr. Cordova's name was placed on the records would go to [facility]. ED Disposition - Plan for ED Patient: Disposition: Home or Assisted Living Diagnosis: Left-sided chest pain, Paresthesia of left upper extremity Instructions: ED Chest Pain Atypical Unkn Cause Referrals: Dylan Cordova MD [STAFF PHYSICIAN] - 3-5 Days
[2020-03-27 01:36] VITALS: BP 121/79; PULSE 79; RESP 17; O2SAT 99
[2020-03-27 01:38] VITALS: BP 121/79; PULSE 78; RESP 18; O2SAT 99
== END 2020-03-27 01:50 | disposition home or self-care (01) ==
LOC: ED 01:44
PROVIDERS: Emergency Provider Emergency Medicine; PCP Family Medicine
DX: R07.89 Other chest pain (principal); R20.2 Paresthesia of skin; K21.9 Gastro-esophageal reflux disease without esophagitis
CPT/HCPCS: 71045; 80048; 84484; 85025; 93005; 99284; A4216

== ENCOUNTER 2020-07-25 16:56 | Emergency (ER) | payer OTHER, SELFPAY ==
[2020-07-25 16:57] VITALS: BP 144/87; PULSE 113; RESP 18; TEMP 36.2; O2SAT 100; BMI 32.3
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
[2020-07-25] MEDS: Diphth,Pertuss(Acell),Tet Vac 0.5 ML Vial IM (19:22)
[2020-07-25] MEDS: Ketorolac 15 MG/ML Vial IM (19:23)
[2020-07-25 19:47] VITALS: BP 128/77; PULSE 89; RESP 18; O2SAT 99
== END 2020-07-25 19:48 | disposition home or self-care (01) ==
LOC: ED 18:50
PROVIDERS: Emergency Provider Emergency Medicine; PCP Family Medicine
DX: S46.911A Strain of unspecified muscle, fascia and tendon at shoulder and upper arm level, right arm, initial encounter (principal); S61.451A Open bite of right hand, initial encounter; S61.551A Open bite of right wrist, initial encounter; Y04.1XXA Assault by human bite, initial encounter; Y92.89 Other specified places as the place of occurrence of the external cause; Y99.0 Civilian activity done for income or pay; F41.9 Anxiety disorder, unspecified
CPT/HCPCS: 73030; 90471; 90715; 96372; 99283

== ENCOUNTER 2022-03-18 10:11 | Emergency (ER) | payer BC, SELFPAY ==
[2022-03-18 10:12] VITALS: BP 116/70; PULSE 90; RESP 16; TEMP 36.6; O2SAT 100; BMI 33.9
--- NOTE | 2022-03-18 10:25 | CT_ITS ---
STUDY: CT ABDOMEN AND PELVIS WITHOUT CONTRAST REASON FOR EXAM: Female, 41 years old. Right-sided flank pain RADIATION DOSAGE (If Supplied By Facility): CTDIvol = ( 20.58 ) mGy, DLP = ( 1064.29 ) mGycm TECHNIQUE: Transaxial images were obtained from the dome of the diaphragm to the symphysis pubis without oral contrast, and without intravenous contrast. Sagittal and coronal images were reconstructed. Individualized dose optimization techniques were used for this CT. COMPARISON: None. FINDINGS: The visualized lung bases are unremarkable. The visualized portions of the heart are within normal limits. Normal liver. There is non-visualization of the gallbladder, which may be secondary to either contraction or a prior cholecystectomy. Normal spleen. Normal pancreas. Normal bilateral adrenal glands. Normal right kidney. Normal left kidney. Normal visualized stomach. Normal small intestine. Scattered colonic diverticulosis, no CT evidence of acute diverticulitis There is non-visualization of the appendix. Normal abdominal aorta. Normal inferior vena cava. Scattered subcentimeter mesenteric and retroperitoneal lymph nodes. Normal urinary bladder. The uterus is enlarged suggesting multiple underlying fibroids. These could also represent ovarian pathology. Consider dedicated pelvic ultrasound for further evaluation There is a fat-containing ventral hernia Normal osseous structures. CT/Abdomen/Pelvis without Cont IMPRESSION: No suspicious solid organ abnormality Scattered colonic diverticulosis No free intraperitoneal fluid, air, or suspicious adenopathy Enlarged uterus with soft tissue densities within the pelvis. I suspect these may represent uterine fibroids but ovarian pathology cannot be excluded. Recommend dedicated pelvic ultrasound for more thorough evaluation Electronically Signed: Anthony Salcedo MD at 12:21 EDT ,
--- NOTE | 2022-03-18 10:26 | EX.ED.DYSGE1 ---
HPI History of Present Illness Chief Complaint: Abd Pain Informant: patient Onset/Context/Timing Onset: Yesterday Context: Gradual Onset Timing: Waxes and wanes Current Severity: Mild Maximum Severity: Moderate Worsened by: Movement Narrative Narrative: Patient presents with right lower quad abdominal pain that started at 4 AM yesterday morning. Patient states it will sometimes radiate to the midline and sometimes around to her back. Pain seems to be worse with movement. She has no urinary symptoms. No fever or chills. Pain is not affected by p.o. intake. [facility] Medical History (Updated 03/18/22 @ 15:[address] Samira Ludwig MD) Asthma Blood in stool Constipation History of back problems PCOD (polycystic ovarian disease) Home Medications duloxetine 90 mg PO DAILY 07/25/20 [History Last Taken Unknown] ketorolac 10 mg PO Q6H PRN 3 Days #14 tab 03/18/22 [Rx Last Taken Unknown] Allergy/AdvReac Type Severity Reaction Status Date / Time No Known Allergies Allergy Verified 03/18/22 10:14 Family History Grandfather Colon cancer Father Diabetes Brother Diabetes Surgical History History of section History of laparoscopic cholecystectomy History of tonsillectomy and adenoidectomy S/P colonoscopy Social History Smoking Status: Never smoker alcohol intake: never substance use type: does not use ROS ROS ED Constitutional Constitutional ED: Denies chills or fever(s) Eyes Eyes: Denies change in vision ENT ENT ED: Denies sore throat Cardiovascular Cardiovascular: Denies chest pain Respiratory/Chest Respiratory/Chest: Denies cough or dyspnea Gastrointestinal Gastrointestinal: Reports abdominal pain; Denies diarrhea, nausea or vomiting Genitourinary Genitourinary ED: Denies dysuria or hematuria Musculoskeletal Musculoskeletal: Reports back pain; Denies arthralgias or myalgias Integumentary Denies rash Neurologic Neurologic: Denies headache(s), paresthesias or weakness Allergic/Immunologic Allergic/Immunologic ED: Denies urticaria EXAM Physical Exam Const Vital Signs: 03/18/22 10:12 Temperature 97.9 F Temperature Source Temporal Pulse Rate 90 Respiratory Rate 16 Blood Pressure 116/70 Blood Pressure Mean 85 Pulse Ox 100 Oxygen Delivery Method Room Air Positive well nourished and well developed General Appearance ED: well developed HEENT Reports moist mucous membranes Eyes PERRL and EOMs intact bilaterally Neck supple Chest Wall inspection of chest normal and palpation of chest normal Resp normal respiratory effort and clear to auscultation bilaterally Cardio regular rate and regular rhythm GI Palpation: soft and tender RLQ; Negative for guarding or rebound tenderness present Extremity normal to inspection Neuro oriented x3 and no sensory deficits noted Sensorium / Orientation: alert Motor Exam: strength 5/5 throughout Psych mental status grossly normal Skin no rashes or lesions noted MDM MDM MDM Narrative Medical decision making narrative: Lab work, urinalysis, CT flank obtained. Patient given Toradol and IV fluids. Lab Data Attestation: I reviewed the patient's lab results. Labs: Laboratory Results - last 24 hr 03/18/22 03/18/22 03/18/22 10:40 10:40 10:40 WBC 7.0 RBC 4.93 Hgb 14.4 Hct 43.4 MCV 88.0 MCH 29.2 MCHC 33.2 RDW Std Deviation 40.0 RDW Coeff of Davy 12.4 Plt Count 204 MPV 11.8 Immature Gran % (Auto) 0.400 Neut % (Auto) 67.2 Lymph % (Auto) 21.6 [place] % (Auto) 6.7 Eos % (Auto) 3.7 Baso % (Auto) 0.4 Absolute Neuts (auto) 4.7 Absolute Lymphs (auto) 1.51 Nucleated RBC % 0 Sodium 138 Potassium 4.2 Chloride 107 Carbon Dioxide 25.0 Anion Gap 6 BUN 13 Creatinine 0.74 Estim Creat Clear Calc 93.66 Est GFR (MDRD) Af Amer 111 Est GFR (MDRD) Non-Af 92 BUN/Creatinine Ratio 17.6 Glucose 103 Calcium 9.0 Total Bilirubin 0.50 Direct Bilirubin 0.13 AST 10 L ALT 22 Alkaline Phosphatase 85 Total Protein 6.7 Albumin 3.6 Globulin 3.1 Serum , Qual NEGATIVE Urine Color Urine Clarity Urine pH Ur Specific [place] Urine Protein Urine Glucose (UA) Urine Ketones Urine Occult Blood Urine Nitrite Urine Bilirubin Urine Urobilinogen Ur Leukocyte Esterase Urine RBC Urine WBC Ur Squamous Epith Cells Urine Bacteria Urine Mucus 03/18/22 11:30 WBC RBC Hgb Hct MCV MCH MCHC RDW Std Deviation RDW Coeff of Davy Plt Count MPV Immature Gran % (Auto) Neut % (Auto) Lymph % (Auto) [place] % (Auto) Eos % (Auto) Baso % (Auto) Absolute Neuts (auto) Absolute Lymphs (auto) Nucleated RBC % Sodium Potassium Chloride Carbon Dioxide Anion Gap BUN Creatinine Estim Creat Clear Calc Est GFR (MDRD) Af Amer Est GFR (MDRD) Non-Af BUN/Creatinine Ratio Glucose Calcium Total Bilirubin Direct Bilirubin AST ALT Alkaline Phosphatase Total Protein Albumin Globulin Serum , Qual Urine Color Straw Urine Clarity Clear Urine pH 6.0 Ur Specific [place] 1.015 Urine Protein Negative Urine Glucose (UA) Normal Urine Ketones Negative Urine Occult Blood Negative Urine Nitrite Negative Urine Bilirubin Negative Urine Urobilinogen Normal Ur Leukocyte Esterase Negative Urine RBC 0 SEEN Urine WBC 0 SEEN Ur Squamous Epith Cells 0 SEEN Urine Bacteria 0 SEEN Urine Mucus 0 SEEN Radiography Diagnostic Testing: Clinical Impression(s) from Imaging Studies Abdomen/Pelvis CT 03/18/22 10:25 IMPRESSION: No suspicious solid organ abnormality Scattered colonic diverticulosis No free intraperitoneal fluid, air, or suspicious adenopathy Enlarged uterus with soft tissue densities within the pelvis. I suspect these may represent uterine fibroids but ovarian pathology cannot be excluded. Recommend dedicated pelvic ultrasound for more thorough evaluation Electronically Signed: Anthony Salcedo MD at 12:21 EDT , Pelvis Ultrasound 03/18/22 12:27 IMPRESSION: Enlarged fibroid uterus corresponding to findings on CT. No suspicious adnexal mass 1.2 cm simple left ovarian cyst, no specific follow-up needed Small amount of free fluid in the cul-de-sac, likely physiologic Electronically Signed: Anthony Salcedo MD at 14:26 EDT , Treatment and Re-Evaluation Narrative: Lab work is unremarkable. Urinalysis reveals no sign of infection. CT scan reveals significant enlarged uterus with questionable uterine fibroids. Ovarian pathology cannot be ruled out. Pelvic ultrasound is performed that reveals enlarged fibroid uterus. No suspicious adnexal mass noted. Test results discussed with patient and at bedside. She is more comfortable after Toradol. I advised her that I am not sure that the fibroid uterus is what is causing her rather sudden abrupt onset of pain yesterday. Remainder of work-up is otherwise unremarkable and she is reassured with this. She will follow-up with [facility]. Discharge Plan Triage Chief Complaint: Abd Pain ED Provider: Samira Ludwig Dx/Rx/DC Orders Clinical Impression: Abdominal pain, Fibroid uterus Instructions: ED Abdominal Pain Unkn Cause Fem, ED Uterine Fibroids Prescriptions: New ketorolac 10 mg tablet 10 mg PO Q6H PRN (Reason: pain) 3 Days Qty: 14 RF: 0 Discontinued naproxen 500 MG tablet 500 mg PO BID Qty: 14 RF: 0 amoxicillin-pot clavulanate 875 MG tablet 875 mg PO Q12H Qty: 20 RF: 0 No Action duloxetine 60 MG capsule 90 mg PO DAILY RF: 0 Primary Care Provider: Tom Gonzáles Referrals: Tom Gonzáles MD [Primary Care Provider] - Ting Mejia MD [STAFF PHYSICIAN] - As Needed Disposition Disposition: Home, Self Care
[2022-03-18] MEDS: Ketorolac 30 MG/ML Syringe IV (10:47)
[2022-03-18 10:48] LABS: Absolute Lymphocyte Count 1.51 X10^3/uL (0.83-4.51); Absolute Neutrophil Count 4.7 X10^3/uL (2.0-7.7); Basophil# 0.03 X10^3/uL; Basophil% 0.4 % (0-1); Eosinophil# 0.26 X10^3/uL; Eosinophils% 3.7 % (0-5); Hematocrit 43.4 % (37-47); Hemoglobin 14.4 g/dL (12.0-15.0); Lymphocyte # 1.51 X10^3/ul (0.83-4.51); Lymphocyte % 21.6 % (19-41); Mean Corp Hgb Conc 33.2 g/dL (32-36); Mean Corpuscular Hgb 29.2 pg (27.0-32.0); Mean Platelet Vol. 11.8 fl (6.2-12.0); Monocyte# 0.47 X10^3/uL; Monocyte% 6.7 % (0-10); NRBC Flagged by Analyzer 0 % (0-5); Neutrophil # 4.69 X10^3/uL (2.7-7.7); Neutrophil % 67.2 % (47-70); Platelet Count 204 K/mm3 (150-450); RBC Distribution Width CV 12.4 % (11.6-14.6); Red Blood Count 4.93 M/mm3 (4.2-5.4)
[2022-03-18] MEDS: 0.9% Normal Saline 1,000 ML 150 ML IV (10:48)
[2022-03-18 11:03] LABS: Internal QC Validated? YES +Cl - CLEAR BKGD; Pregnancy, Serum, hCG Quali. NEGATIVE Negative
[2022-03-18 11:07] LABS: AST(SGOT) 10 U/L (15-37); Alanine Aminotransfer ALT/SGPT 22 U/L (13-56); Albumin, Serum 3.6 g/dL (3.2-5.0); Alkaline Phosphatase 85 U/L (45-117); Anion Gap 6 (5-15); BUN 13 mg/dL (7-18); BUN/Creat Ratio 17.6 RATIO (10-20); Bilirubin, Direct 0.13 mg/dL (0.00-0.30); Chloride 107 mmol/L (98-107); Creatinine, Serum 0.74 mg/dL (0.55-1.02); EST Glomerular Filtration Rate 92 mL/min (>60); Est Glom Filt Rate - Afr Amer 111 mL/min (>60); Estimated Creatinine Clearance 93.66 ml/min; Globulin 3.1 g/dL (2.2-4.2); Glucose 103 mg/dL (74-106); Potassium 4.2 mmol/L (3.5-5.1); Protein, Total 6.7 g/dL (6.4-8.2); Sodium Level 138 mmol/L (136-145)
[2022-03-18 11:38] LABS: Bacteria 0 SEEN /hpf (None Seen); Mucous, Urine 0 SEEN /hpf (<or=2+); Red Blood Cells-Urine 0 SEEN /hpf (0-5); Squamous Epithelial Cells - UA 0 SEEN /hpf (5-10); White Blood Cells 0 SEEN /hpf (0-5)
[2022-03-18 11:39] LABS: Color, Urine Straw (Yellow); Glucose, Dipstick Normal (Normal); Ketone-Dipstick Negative (Negative); Leukocyte Esterase-Dipstick Negative /ul (Negative); Nitrite-Dipstick Negative (Negative); Occult Blood-Urine Negative /ul (Negative); Protein-Dipstick Negative (Negative); Specific Gravity, Urine 1.015 (1.002-1.030); Urine Bilirubin Dipstick Negative (Negative); Urine Clarity Clear (Clear); Urine Urobilinogen Normal (Normal)
--- NOTE | 2022-03-18 12:27 | US_ITS ---
STUDY: ULTRASOUND OF THE FEMALE PELVIS - COMPLETE REASON FOR EXAM: Female, 41 years old. Pelvic pain and fullness, abnormal CT LMP: 02/26/2022 TECHNIQUE: Transabdominal TECHNICAL QUALITY: Adequate. COMPARISON: None. FINDINGS: The uterus is anteverted and is in a midline position. The uterus measures 15.9 x 5.3 x 5.3 cm. Normal uterine cervix. The endometrium measures 9 mm in thickness, and is hyperechoic. There is no demonstrated endometrial mass. 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 I.U.D. - The patient does not have an I.U.D. The right ovary is visualized. The right ovary measures 2.5 x 1.2 x 1.0 cm. There is no right ovarian cyst or ovarian mass. There is no visualized right adnexal mass or complex lesion. There is normal arterial and normal venous vascularity. The left ovary is visualized. The left ovary measures 4.4 x 3.0 x 2.3 cm. There is a simple 1.2 cm cyst.. There is normal arterial and normal venous vascularity. There is minimal fluid in the cul-de-sac. The bladder is sonographically normal US/Pelvic (Non ) IMPRESSION: Enlarged fibroid uterus corresponding to findings on CT. No suspicious adnexal mass 1.2 cm simple left ovarian cyst, no specific follow-up needed Small amount of free fluid in the cul-de-sac, likely physiologic Electronically Signed: Anthony Salcedo MD at 14:26 EDT ,
== END 2022-03-18 16:02 | disposition home or self-care (01) ==
PROVIDERS: Emergency Provider Emergency Medicine; PCP Family Medicine; Visit Provider Emergency Medicine
DX: D25.9 Leiomyoma of uterus, unspecified (principal); Z80.0 Family history of malignant neoplasm of digestive organs; R10.9 Unspecified abdominal pain; E28.2 Polycystic ovarian syndrome; J45.909 Unspecified asthma, uncomplicated; N83.202 Unspecified ovarian cyst, left side
CPT/HCPCS: 74176; 76856; 80048; 80076; 81001; 84703; 85025; 96361; 96374; 99284; J7030; A4216

== ENCOUNTER → 2022-04-11 | Outpatient (CLI) | payer BC, SELFPAY ==
[2022-04-15 15:37] LABS: HPV APTIMA, High Risk Negative (Negative)
== END | disposition home or self-care (01) ==
LOC: LABSPEC 11:31
PROVIDERS: PCP Family Medicine; Visit Provider Student in an Organized Health Care Education/Training Program
DX: Z12.4 Encounter for screening for malignant neoplasm of cervix (principal)
CPT/HCPCS: 87624; 88175; G0145

== ENCOUNTER → 2022-06-14 | Outpatient (CLI) | payer BC, SELFPAY ==
--- NOTE | 2022-06-14 14:10 | BI_ITS ---
MAMMOGRAPHY - BILATERAL SCREENING REASON FOR EXAM: Female, 41 years old. Routine annual screening examination. PERTINENT HISTORY: Non-contributory. TECHNIQUE: Digital bilateral breast lenka (3D mammographic acquisition) in the CC and MLO projections. 2-D mediolateral oblique (MLO) and craniocaudad (CC) views of both breasts were obtained. CAD: Full Field Digital Mammography with Computer Added Detection was performed. COMPARISON: Comparison is made with prior study dated 11/27/2018 and 09/23/2019. FINDINGS: Breast Composition: There are scattered areas of fibroglandular density. There are no dominant masses or suspicious calcifications. No other significant abnormalities are identified. There has been no significant change since the prior study. BI/SCRN MAMM (CAD)W/LENKA BILAT IMPRESSION: Stable bilateral screening mammogram. Yearly follow-up mammogram recommended. (A) ASSESSMENT CATEGORY: BIRADS Category 1: Negative. A letter regarding these results will be sent to the patient by the facility within 30 days. Approximately 10% of breast cancers are not detected by mammography. A normal mammogram should not delay biopsy of a clinically suspicious abnormality. [id number] Electronically Signed: Arnoldo Eduardo MD at 14:53 EDT ,
== END | disposition home or self-care (01) ==
LOC: OPBI 14:09
PROVIDERS: PCP Family Medicine; Referring Provider Student in an Organized Health Care Education/Training Program; Visit Provider Student in an Organized Health Care Education/Training Program
DX: Z12.31 Encounter for screening mammogram for malignant neoplasm of breast (principal)
CPT/HCPCS: 77063; 77067

== ENCOUNTER 2022-10-24 05:32 | Inpatient (IN) | payer BC, SELFPAY ==
--- NOTE | 2022-08-05 11:23 | CASEMGMT ---
TC to pt for pre surgery assessment, no answer.
[2022-10-18 10:26] LABS: Hematocrit 47.6 % (37-47); Hemoglobin 15.6 g/dL (12.0-15.0); Mean Corp Hgb Conc 32.8 g/dL (32-36); Mean Corpuscular Hgb 28.3 pg (27.0-32.0); Mean Corpuscular Volume 86.4 fL (81-99); Mean Platelet Vol. 12.1 fl (6.2-12.0); Platelet Count 241 K/mm3 (150-450); RBC Distribution Width CV 12.4 % (11.6-14.6); RBC Distribution Width SD 39.1 fl (35.1-43.9); Red Blood Count 5.51 M/mm3 (4.2-5.4); White Blood Count 8.1 K/mm3 (4.4-11.0)
[2022-10-18 10:49] LABS: Magnesium 2.4 mg/dL (1.6-2.6)
[2022-10-24] VITALS (15 sets, daily range): BP systolic 94–126; BP diastolic 58–79; PULSE 73–113; RESP 16–18; TEMP 36.2–37.3; O2SAT 93–100; BMI 37.2
[2022-10-24] MEDS: Gabapentin 600 MG Tablet PO (06:20)
[2022-10-24] MEDS: Acetaminophen 500 MG Tablet 1000 MG PO ×4 (06:20→22:47)
[2022-10-24] MEDS: dexAMETHasone 10 MG/ML Vial 8 MG IV (06:20)
[2022-10-24] MEDS: Lactated Ringers 1,000 ML 40 ML IV ×2 (06:21→09:15)
[2022-10-24 06:33] LABS: Internal QC Validated? YES +Cl - CLEAR BKGD; Pregnancy, Urine Negative Negative
[2022-10-24 06:45] LABS: Bedside Glucose 129 mg/dL (74-106)
--- NOTE | 2022-10-24 07:07 | PCM.HP.BLA ---
History and Physical Date of Admission: 10/24/22 HPI: 42-year-old female plan for total abdominal hysterectomy, bilateral salpingectomy for enlarged fibroid uterus and pelvic pain. Denies headache or vision changes, chest pain or shortness of breath, nausea or vomiting, diarrhea or constipation, fevers or chills. Medical history: 1. Asthma 2. Chronic pain, depression Surgical history: 1. section x3, tubal ligation 2. Cholecystectomy 3. 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 Albuterol 2. Cymbalta Family history: No history of blood clots or bleeding disorders, issues with anesthesia Social history: Denies tobacco, alcohol, drug use Allergies: NKDA Review of system: Negative otherwise stated above Physical exam: Blood pressure 126/78, heart rate 113, respirations 17, temp 97.2 ?F, oxygen saturation 98 percent on room air General: No acute distress HEENT: Normal cephalic/atraumatic, PERRLA Cardiac: Regular rate and rhythm Respiratory: Clear to auscultation bilaterally Abdomen: Soft, nontender Extremities: No edema Musculoskeletal: Strength out of 5 throughout all extremities Neurologic: Cranial nerves II through XII grossly intact Assessment/plan:42-year-old female plan for total abdominal hysterectomy, bilateral salpingectomy for enlarged fibroid uterus and pelvic pain. All risk, benefits, alternatives discussed the patient. Risk include but are not limited to: Risk of bleeding twin transfusion, infection, injury to surrounding tissue including bowel/bladder potentially requiring prolonged Calabrese catheter use, major abdominal vessels, VTE, ICU admission. Patient were consented.
[2022-10-24] MEDS: Cefazolin 2 GM in 0.9% Normal Saline 100 ML IV (07:26)
--- NOTE | 2022-10-24 07:30 | HYST_PTH ---
PATIENT: NASRIN TALLEY LOC: [facility] U#:[id number] AGE/SX: 42/F ROOM: W[facility]316 RE10/24/[address]: Dr. Mariam Wiseman DO : 1980 BED: 1 DIS: 10/25/2022 SPEC #: [id number] RECD: 10/24/22 10:43 STATUS: BRADY REJesus #: [id number] RIGO: 10/24/22 07:[address]: Mariam Wiseman DEPT: SURGICAL PATHOLOGY RECD BY: Leonarda Lemos ENTERED: 10/24/22 12:27 SP TYPE: HYSTERECT OTHR DR: Dr. Tom Gonzáles MD Tissues: Uterus, NOS Procedures: Surgery Specimen Level V HEADER OPERATION: ERAS, hysterectomy, MIRI, salpingectomy PRE-OP DIAGNOSIS: Enlarged fibroid uterus, pelvic pain TISSUE SUBMITTED: Cervix, uterus, bilateral fallopian tubes, uterine fibroid MICROSCOPIC DIAGNOSIS Uterus, hysterectomy: Cervix ? focal nabothian cysts. Endometrium ? secretory endometrium. Myometrium ? focal superficial adenomyosis. Lobulated mass free in container ? leiomyoma, lobulated. Right and left fallopian tubes ? complete cross-sections fallopian tubes with benign paratubal cysts and focal reactive serosal tissue with hyalinized elastosis. AM:soumya 10/25/2022 MICROSCOPIC DESCRIPTION Slides are reviewed. GROSS DESCRIPTION Received in fixative is one container labeled with the patient's name and designated uterus. The specimen consists of a uterus with attached cervix, two detached fallopian tubes and one lobulated fragment of rubbery, pink-hogue tissue. The uterus with cervix measures 11 x 3 x 0.5 cm and weighs 151 gm. The endocervical canal measures 3.8 cm in length and is grossly unremarkable. The triangular endometrial cavity measures 5 x 3 cm. The velvety, light hogue endometrium measures up to 0.2 cm in thickness. The myometrium measures 2.5 cm in average thickness and is free of mass lesions. The lobulated fragment of tissue free in the container measures 14 x 8 x 6.5 cm and serial sections of this tissue reveals rubbery, yellow-white cut surfaces resembling leiomyoma. The two fallopian tubes are similar in appearance with average lengths of 6 cm and average diameters of 0.7 cm. The fimbrial end is not visible in one fallopian tube. Regional Account Executive sections are submitted as follows: 1 - anterior cervix, 2??posterior cervix, 3 & 4 - anterior uterine wall, 5 & 6 - posterior uterine wall, 7-9 - lobulated tissue free in container, 10 - fallopian tube with fimbrial end, 11 - fallopian tube with no distinct fimbrial end. / AM:soumya 10/24/2022 TC:1 CPT: 64979
--- NOTE | 2022-10-24 09:55 | OP.PCM_ITS ---
Report of Operation Date of Procedure: 10/24/22 Pre-Operative Diagnosis: Fibroid uterus, pelvic pain Post-Operative Diagnosis: Fibroid uterus, pelvic pain Surgery/Procedure Performed:: Total abdominal hysterectomy, bilateral salpingectomy Description of Surgical Findings:: Normal-appearing external genitalia. Enlarged fibroid uterus. 3 fibroids at the uterine fundus, subserosal. Fibroids in total measuring 16 cm. Largest fibroid approximately 8 cm, second largest fibroid approximately 5 cm, 2 other smaller fibroids. Bladder adhesions at site of prior section. Type of Anesthesia: General Specimen's removed: Uterus, cervix, bilateral fallopian tubes, uterine fibroids Estimated Blood Loss (mL): 150 cc Fluids Replaced: 1500cc Description of Procedure: Indication/risk/benefits: 42-year-old female with enlarged fibroid uterus and pelvic pain presenting for total abdominal hysterectomy, bilateral salpingectomy. All risk, benefits, alternatives discussed with patient. Risk include are not limited to: Risk of bleeding to the point of transfusion, injury to surrounding tissue including bowel/bladder potentially requiring prolonged Calabrese catheter use/abdominal vessels, VTE, ICU admission. Patient were consented. Procedure: Patient taken to the operating room and placed under general anesthesia. Patient placed in the supine position and prepped and draped in the usual sterile fashion. Calabrese catheter placed. Pfannenstiel skin incision made with scalpel and carried down through subcutaneous tissue. Fascia nicked on either side of the midline and extended bilaterally. Marquise clamps grasped superior fascial edge which was tented up and underlying rectus muscles were dissected off bluntly and sharply at midline. Marquise clamps moved to inferior fascial edge which was tented up underlying rectus muscles were dissected off in a similar fashion. Rectus muscles superiorly using hemostats. And peritoneum entered using Metzenbaum scissors. Entry extended bluntly. De retractor placed. Retractor placement confirmed against the fascia with no or deana between. Labs placed in the abdominal cavity packing bowel away from surgical field. Examination of the uterus and fibroids completed. Fibroids noted fundally. Fibroids were excised using Bovie electrocautery across the fundus. Uterine fundus was then reapproximated with running stitch for hemostasis. Left round ligament was identified and suture-ligated. Round ligament incised with monopolar cautery, anterior leaf of the broad ligament entry carried towards the vesicouterine peritoneum. Left fallopian tube identified, grasped with [place], removed using LigaSure device. Right fa llopian tube identified grasped with [place], and removed along the mesosalpinx using LigaSure device in a similar fashion. Right round ligament suture- ligated, incised with monopolar cautery. Anterior leaf of the broad ligament dissected and bladder flap created towards the midline. Right medial portion of the broad ligament dissected, identifying right ureter. Window made in the peritoneum below the right utero-ovarian ligament. Right utero-ovarian ligament coagulated and cut using LigaSure. Right uterine artery skeletonized using Metzenbaum scissors. Left medial portion of the broad ligament dissected, identifying the left ureter. Peritoneal window below the left utero-ovarian ligament rated, left utero-ovarian ligament coagulated and cut using LigaSure. Left uterine artery skeletonized using Metzenbaum scissors. Dissection of the vesicouterine peritoneum completed using Metzenbaum scissors and blunt dissection. Area of adhesion at the right side of the uterus and cervix identified. Careful dissection with blunt and sharp dissection allowed adhesion to be lysed. Bladder falling away from anterior uterus and cervix. Right and left uterine arteries coagulated and cut at an angle. Right and left uterine arteries coagulated and cut parallel to the uterus. Allowing the uterine arteries to fall away from the uterus and cervix. Right angle Zeppelins placed under the cervix at the right and left angles. Martina scissors utilized to remove uterus and cervix. Cervical excision confirmed with inspection. Transfixation suture placed at each angle and Zeppelins removed. 3 [id number] stitches placed at the vaginal cuff. Posterior peritoneum at the level of the vaginal cuff was oozing, hemostatic with [id number] stitch. Pelvis suction irrigated, hemostasis noted. Floseal placed at the vaginal cuff. Laps removed. De retractor removed. Peritoneum identified and closed with a running stitch. Fascia closed with a running stitch. Subcutaneous tissue reapproximated with suture. Skin closed with a running subcuticular stitch. At the end of the procedure all needle, lap, sponge counts were correct. UOP: 200 cc clear urine Complications None
[2022-10-24] MEDS: Ketorolac 30 MG/ML Syringe IV ×3 (10:44→22:47)
[2022-10-24] MEDS: 0.9% Saline Lock 10 ML Syringe IV (16:14)
[2022-10-24] MEDS: Docusate Sodium 100 MG Capsule PO (22:47)
[2022-10-25] VITALS: BP 108/70; PULSE 78; RESP 16; TEMP 36.9; O2SAT 97
[2022-10-25 03:41] VITALS: BP 108/60; PULSE 77; RESP 18; TEMP 36.8; O2SAT 100
[2022-10-25 03:53] VITALS: BP 108/60; PULSE 77; RESP 18; TEMP 36.8; O2SAT 100
[2022-10-25 06:04] LABS: Hemoglobin 11.3 g/dL (12.0-15.0); Mean Corp Hgb Conc 32.3 g/dL (32-36); Mean Corpuscular Hgb 28.5 pg (27.0-32.0); Mean Corpuscular Volume 88.4 fL (81-99); Mean Platelet Vol. 12.1 fl (6.2-12.0); Platelet Count 214 K/mm3 (150-450); RBC Distribution Width CV 12.7 % (11.6-14.6); RBC Distribution Width SD 41.3 fl (35.1-43.9); Red Blood Count 3.96 M/mm3 (4.2-5.4); White Blood Count 8.3 K/mm3 (4.4-11.0)
[2022-10-25] MEDS: Acetaminophen 500 MG Tablet 1000 MG PO (06:32)
[2022-10-25] MEDS: Ketorolac 30 MG/ML Syringe IV ×2 (06:32→11:20)
[2022-10-25 07:36] VITALS: O2SAT 97
--- NOTE | 2022-10-25 07:49 | DCINST_ITS ---
Discharge Instructions Diet Discharge Diet: No restrictions Activity Discharge Activity: Return to Normal Activity, May Drive and May Shower May resume sexual activity in: 4-6 weeks Lifting Restrictions: No lifting over 25 pounds for 2 to 3 weeks Dressing / Incision Call your doctor if your incision/area has: Continuous Slow Oozing and Foul Smelling Discharge Call your doctor if you observe: Fever of 101 or Higher, Shortness of breath and Chest pain Follow Up Care Please Follow Up With: Steven Wiseman MD When: 2 weeks postoperatively Test Results: Test results from this visit will be discussed in further detail at your follow- up appointment, if applicable. Discharge Plan Admission Admit Date/Time: 10/24/22 09:50 Attending Provider: Mariam Wiseman Primary Care Provider: Tom Gonzáles Discharge Orders/Prescriptions Prescriptions: No Action duloxetine [Cymbalta] 60 MG capsule 60 mg PO DAILY albuterol sulfate 90 mcg/actuation HFA aerosol inhaler 2 puff INHALATION PRN PRN (Reason: ASTHMA) Label Comments: Inhale 2 Puffs as instructed every 4 hours as needed for wheezing/shortness of breath. Referrals / Follow Up: Tom Gonzáles MD [Primary Care Provider] - Disposition Discharge Orders: Discharge Patient (Routine); Ordered 10/25/22 Ordered By: Dr. Steven Wiseman
--- NOTE | 2022-10-25 07:50 | PCM.PN.OB ---
Subjective Subjective No overnight complaints Objective Data Objective Data Vital Signs: Vital Signs Temp Pulse Resp BP Pulse Ox O2 Del Method O2 Flow Rate 98.2 F 77 18 108/60 97 Room Air 2 10/25/22 03:53 10/25/22 03:53 10/25/22 03:53 10/25/22 03:53 10/25/22 07:36 10/25/22 07:36 10/24/22 15:56 Oxygen Flow Rate (L/min) 2 Oxygen Delivery Method Room Air Weight: 223 lb 8.78 oz Body Mass Index (BMI) 37.2 Intake & Output: Intake and Output for Last 24 Hours 10/23/22 10/24/22 10/25/22 23:59 23:59 23:59 Intake Total 4412 / 4412 Output Total 1430 / 1830 400 / 400 Balance 2982 / 2582 -400 / -400 Lab / Micro Data Result Diagrams: 10/25/22 05:37 Labs: Laboratory Results - last 24 hr 10/25/22 05:37: WBC 8.3, RBC 3.96 L, Hgb 11.3 L, Hct 35.0 L, MCV 88.4, MCH 28.5, MCHC 32.3, RDW Std Deviation 41.3, RDW Coeff of Davy 12.7, Plt Count 214, MPV 12.1 H Physical Exam Const alert, oriented x3, no apparent distress, average body habitus, healthy appearing and well nourished HEENT normocephalic and moist oral mucous membranes Eyes PERRL Resp normal respiratory effort, no retractions and no use of accessory muscles GI GI Narrative: Soft, nontender, bandage clean dry and intact Extremity normal to inspection, full ROM and no clubbing, cyanosis or edema Neuro moves all extremities and no focal motor deficits Psych mental status grossly normal, affect normal, speech normal and activity/motor behavior normal Assessment & Plan (1) Post-op pain: PLAN: Postop day 1 status post total abdominal hysterectomy bilateral salpingectomy with leiomyomas. Pain well controlled. Calabrese catheter in place will DC today. Continue to ambulate. Tolerating regular diet. Will discharge home today after spontaneous void
[2022-10-25 08:08] VITALS: BP 99/59; PULSE 61; RESP 17; TEMP 36.9; O2SAT 99
[2022-10-25] MEDS: Docusate Sodium 100 MG Capsule PO (08:11)
[2022-10-25] MEDS: Ensure Plus High Protein 120 ML LIQUID PO (08:12)
[2022-10-25] MEDS: Enoxaparin 40 MG/0.4 ML Syringe SC (08:12)
--- NOTE | 2022-10-25 09:43 | CASEMGMT ---
DEANDRA HARRIS Assessment: Face to Face with pt for initial transition planning/care coordination assessment. RN KIMBERLY introduced self and role at [facility], pt voices understanding and consents to assessment. Pt is A/O x4 and answers all questions appropriately at this time. Pt sitting up in bed in no distress with at bedside. Care providers, pharmacy, and demographics verified/updated. 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 Pt reports she is I in ADL's and denies concerns at home. Transportation: Pt drives self and denies concerns with transportation. DME/HHC/SNF: Pt denies having any DME in the home, previous HHC or SNF stays. Pt states no concerns with going home at time of dc. Pt states no further concerns/needs. CM to follow. Advised pt to ask CM if any further question/concerns/needs arise, voices understanding. Pt Goal: Home Plan: Home
[2022-10-25] MEDS: 0.9% Saline Lock 10 ML Syringe IV (11:21)
[2022-10-25 11:35] VITALS: BP 96/60; PULSE 86; RESP 17; O2SAT 94
== END 2022-10-25 11:35 | disposition home or self-care (01) | DRG 743 ==
LOC: ACINP 11:31 → MS3 11:32
PROVIDERS: Anesthesiology; Admitting Provider Student in an Organized Health Care Education/Training Program; PCP Family Medicine; Referring Provider Student in an Organized Health Care Education/Training Program; Visit Provider Student in an Organized Health Care Education/Training Program
PROC: 0UT90ZZ Resection of Uterus, Open Approach (ICD-10-PCS; CPT 58150; principal; 2022-10-24 07:10)
DX: D25.9 Leiomyoma of uterus, unspecified (principal); F32.A Depression, unspecified; J45.909 Unspecified asthma, uncomplicated; R10.2 Pelvic and perineal pain
CPT/HCPCS: 36415; 81025; 82962; 83735; 85027; 86850; 86900; 86901; 88307; 94762; 99252; J7050; J7120; A4216; G0463; J2405; J3475

== ENCOUNTER → 2022-11-08 | Outpatient (CLI) | payer BC, SELFPAY ==
[2022-11-08 10:14] LABS: Absolute Lymphocyte Count 1.87 X10^3/uL (0.83-4.51); Absolute Neutrophil Count 5.2 X10^3/uL (2.0-7.7); Basophil# 0.08 X10^3/uL; Eosinophil# 0.41 X10^3/uL; Eosinophils% 5.1 % (0-5); Hematocrit 42.7 % (37-47); Hemoglobin 13.6 g/dL (12.0-15.0); Lymphocyte # 1.87 X10^3/ul (0.83-4.51); Lymphocyte % 23.1 % (19-41); Mean Corp Hgb Conc 31.9 g/dL (32-36); Mean Corpuscular Hgb 28.3 pg (27.0-32.0); Mean Platelet Vol. 11.8 fl (6.2-12.0); Monocyte# 0.49 X10^3/uL; NRBC Flagged by Analyzer 0 % (0-5); Neutrophil # 5.22 X10^3/uL (2.7-7.7); Neutrophil % 64.3 % (47-70); Platelet Count 307 K/mm3 (150-450); RBC Distribution Width CV 12.6 % (11.6-14.6); RBC Distribution Width SD 41.1 fl (35.1-43.9); White Blood Count 8.1 K/mm3 (4.4-11.0)
[2022-11-08 10:49] LABS: Anion Gap 8 (5-15); BUN 14 mg/dL (7-18); BUN/Creat Ratio 14.9 RATIO (10-20); Calcium,Total 9.2 mg/dL (8.5-10.1); Chloride 104 mmol/L (98-107); Creatinine, Serum 0.94 mg/dL (0.55-1.02); EST Glomerular Filtration Rate 69 mL/min (>60); Est Glom Filt Rate - Afr Amer 84 mL/min (>60); Glucose 104 mg/dL (74-106); Potassium 4.4 mmol/L (3.5-5.1); Sodium Level 138 mmol/L (136-145)
== END | disposition home or self-care (01) ==
LOC: WOBLAB 09:58
PROVIDERS: PCP Family Medicine; Visit Provider Student in an Organized Health Care Education/Training Program
DX: Z48.816 Encounter for surgical aftercare following surgery on the genitourinary system (principal)
CPT/HCPCS: 36415; 80048; 85025

== ENCOUNTER 2023-12-15 04:48 | Emergency (ER) | payer BC, SELFPAY ==
[2023-12-15 04:48] VITALS: BP 130/85; PULSE 88; RESP 18; TEMP 35.7; O2SAT 98; BMI 44.8
--- NOTE | 2023-12-15 04:56 | CT_ITS ---
STUDY: CT ABDOMEN AND PELVIS WITH CONTRAST REASON FOR EXAM: Female, 43 years old. Right lower quadrant pain. RADIATION DOSAGE (If Supplied By Facility): CTDIvol = ( 16.57 ) mGy, DLP = ( 1235.13 ) mGycm TECHNIQUE: Transaxial images were obtained through the abdomen and pelvis with oral contrast. 100 ml of Isovue-370 contrast was administered. Sagittal and coronal images were reconstructed. Individualized dose optimization techniques were used for this CT. COMPARISON: Prior study dated: 3019 FINDINGS: LOWER THORAX: The visualized lung bases are clear. The visualized portions of the heart and pericardium are within normal limits. GALLBLADDER / BILE DUCTS: The patient is status post cholecystectomy. There is no intrahepatic biliary duct dilatation. The common bile duct is normal in caliber. There are no calcified ductal stones. LIVER: The liver is low in density, consistent with fatty infiltration. SPLEEN: The spleen is normal in size. PANCREAS: The pancreas is within normal limits. ADRENAL GLANDS: The adrenal glands are within normal limits. KIDNEYS / BLADDER: There are no renal or ureteral stones. There is no hydronephrosis. There are no focal renal lesions. The urinary bladder is partially distended and appears grossly unremarkable. STOMACH / BOWEL: Normal visualized stomach. There is no bowel obstruction or inflammation. There is a large amount of stool in the colon, consistent with constipation. The appendix is visualized and appears normal. There is a stable small fat-containing umbilical hernia. PERITONEUM/RETROPERITONEUM: There is no abdominal or pelvic free air, free fluid or fluid collection. There is a 3.5 x 3.3 cm complex right adnexal cyst. There is no abdominal or pelvic lymphadenopathy. VESSELS: The aorta is normal in caliber. The IVC is unremarkable. BONES: There are no destructive osseous lesions. SOFT TISSUES: The visualized soft tissues are within normal limits. CT/Abdomen/Pelvis WITH Contrast IMPRESSION: 3.5 x 3.3 cm complex right adnexal cyst. If indicated, further evaluation with ultrasound can be performed. No bowel obstruction or inflammation. Normal appendix. Constipation. Stable small fat-containing umbilical hernia. Normal kidneys. No hydronephrosis. Fatty liver. Electronically Signed: Jorge Luis Fortune MD at 7:53 EST ,
--- NOTE | 2023-12-15 05:04 | EDS_ITS ---
HPI <Dr. Luca Olguin MD - Last Filed: 12/15/23 07:02> History of Present Illness Chief Complaint: Abd Pain Informant: patient Narrative Narrative: Patient presents with right lower quadrant pain nausea vomiting. Patient states she was fine yesterday and when she went to bed. She woke up about 2:00 this morning and had pain in the right lower quadrant. She was nauseated. She did vomit but no diarrhea. No known fevers or chills. The pain does radiate a little bit to her back. No urinary symptoms though. She has never had a kidney stone. She had a total abdominal hysterectomy a little over a year ago. She had prior cholecystectomy but no appendectomy. Her has COVID but she has not had any symptoms of this. Nothing really makes this better or worse. [facility] <Dr. Luca Olguin MD - Last Filed: 12/15/23 07:02> [facility] Medical History Anxiety Asthma Blood in stool Constipation GERD (gastroesophageal reflux disease) History of back problems Migraines Non-smoker PCOD (polycystic ovarian disease) Wears glasses Home Medications albuterol sulfate 90 mcg/actuation aerosol inhaler 2 puff inhalation PRN PRN ASTHMA 10/15/22 [History Last Taken Unknown] bupropion HCl 150 mg 24 hr tablet, extended release 150 mg PO DAILY 12/15/23 [History Last Taken Unknown] naproxen 500 mg tablet (Naprosyn) 500 mg PO BID PRN pain #20 tabs 12/15/23 [Rx Last Taken Unknown] Allergy/AdvReac Type Severity Reaction Status Date / Time No Known Allergies Allergy Verified 12/15/23 04:51 Family History Grandfather Colon cancer Father Diabetes Brother Diabetes Surgical History History of section History of laparoscopic cholecystectomy History of tonsillectomy and adenoidectomy S/P colonoscopy Social History Smoking Status: Never smoker alcohol intake: never substance use type: does not use ROS <Dr. Luca Olguin MD - Last Filed: 12/15/23 07:02> ROS ED ROS Narrative A complete review of systems was performed and is negative except as documented in the history of present illness. Some specific details below. Constitutional: No recent fevers or chills. No malaise no myalgias. ENT: No difficulty swallowing. No swelling. No pain. No GERD symptoms. She did vomit at home. CV: No chest pain or palpitations. Respiratory: No dyspnea. No hemoptysis. No difficulty taking breaths. GI: Please see history of present illness. : No frequency dysuria or hematuria. Musculoskeletal: No recent trauma. No pains. She does have some of the pain from the right lower quadrant radiate toward her back though. Skin: No rash. Nondiaphoretic. Neuro: No weakness or numbness. Endocrine: No polyuria or polydipsia. EXAM <Dr. Luca Olguin MD - Last Filed: 12/15/23 07:02> Physical Exam Narrative Exam Narrative: CONSTITUTIONAL: Patient is nontoxic in appearance. The patient looks a little bit uncomfortable. HEENT: No notable trauma. Mucous membranes moist. EYES: No icterus. CARDIOVASCULAR: Regular rate. Regular rhythm. No notable murmur. No JVD. RESPIRATORY: No respiratory distress. Breathing is unlabored. No wheezes. No rhonchi. No rales. No pain with a deep breath. Saturations normal at 98% on room air showing no hypoxia. GASTROINTESTINAL: Not distended. Bowel sounds are normal. She does have mild tenderness diffusely in the right lower quadrant. But not markedly tender. There is no guarding or rebound. She does state that pressing makes it a little bit worse but objectively it does not seem markedly tender but she does look uncomfortable. GENITOURINARY: No tenderness over the bladder. No CVA tenderness on either side. MUSCULOSKELETAL: Atraumatic. No tenderness NEUROLOGICAL: Patient is alert and appropriate. No focal deficit noted. SKIN: No noted rashes. No diaphoresis. PSYCHIATRIC: Patient is calm. Mood is appropriate. Const Vital Signs: 12/15/23 04:48 12/15/23 07:15 Temperature 96.2 F L Temperature Source Temporal Pulse Rate 88 91 Respiratory Rate 18 16 Blood Pressure 130/85 H 117/74 Blood Pressure Mean 100 88 Pulse Ox 98 99 Oxygen Delivery Method Room Air Room Air <Dr. Rikki Eng, DO - Last Filed: 12/15/23 08:04> Physical Exam Const Vital Signs: 12/15/23 04:48 12/15/23 07:15 Temperature 96.2 F L Temperature Source Temporal Pulse Rate 88 91 Respiratory Rate 18 16 Blood Pressure 130/85 H 117/74 Blood Pressure Mean 100 88 Pulse Ox 98 99 Oxygen Delivery Method Room Air Room Air MDM <Dr. Luca Olguin MD - Last Filed: 12/15/23 07:02> [facility] Narrative Medical decision making narrative: Patient has mixed findings. She is not pacing. She will is comfortable laying still. We will do a scan as appendicitis is certainly a possibility. But kidney stone is certainly possible to sounds like the pain is very recent. But I cannot get that it sharp stabbing. No urinary symptoms and she has never had a kidney stone. We will do blood work, urinalysis and scan of the abdomen with IV contrast. CBC shows no acute abnormalities. Basic metabolic panel shows no acute issues. Glucose is just minimally high at 111. Liver function test shows overall normal results. Urinalysis shows no acute abnormality. Lab Data Labs: Laboratory Results - last 24 hr 12/15/23 12/15/23 05:12 05:13 WBC 8.5 RBC 4.74 Hgb 13.6 Hct 41.8 MCV 88.2 MCH 28.7 MCHC 32.5 RDW Std Deviation 41.0 RDW Coeff of Davy 12.6 Plt Count 206 MPV 11.7 Immature Gran % (Auto) 0.400 Neut % (Auto) 67.1 Lymph % (Auto) 20.9 Nash % (Auto) 7.6 Eos % (Auto) 3.4 Baso % (Auto) 0.6 Absolute Neuts (auto) 5.7 Absolute Lymphs (auto) 1.77 Nucleated RBC % 0 Sodium 139 Potassium 3.8 Chloride 107 Carbon Dioxide 27.0 Anion Gap 5 BUN 13 Creatinine 0.78 Estim Creat Clear Calc 101.21 Est GFR (MDRD) Af Amer 104 Est GFR (MDRD) Non-Af 86 BUN/Creatinine Ratio 16.8 Glucose 111 H Calcium 8.5 Total Bilirubin 0.40 AST 30 ALT 25 Alkaline Phosphatase 99 Total Protein 6.4 Albumin 3.3 Globulin 3.1 Albumin/Globulin Ratio 1.1 Urine Color Yellow Urine Clarity Clear Urine pH 6.0 Ur Specific Welch 1.020 Urine Protein Negative Urine Glucose (UA) Normal Urine Ketones Negative Urine Occult Blood Negative Urine Nitrite Negative Urine Bilirubin Negative Urine Urobilinogen Normal Ur Leukocyte Esterase Negative Urine RBC 0-5 SEEN Urine WBC 0-5 SEEN Ur Squamous Epith Cells 5-10 SEEN Urine Bacteria RARE Urine Mucus 0 SEEN Radiography Diagnostic Testing: Clinical Impression(s) from Imaging Studies Abdomen/Pelvis CT 12/15/23 04:56 IMPRESSION: 3.5 x 3.3 cm complex right adnexal cyst. If indicated, further evaluation with ultrasound can be performed. No bowel obstruction or inflammation. Normal appendix. Constipation. Stable small fat-containing umbilical hernia. Normal kidneys. No hydronephrosis. Fatty liver. Electronically Signed: Jorge Luis Fortune MD at 7:53 EST , <Dr. Rikki Eng, DO - Last Filed: 12/15/23 08:04> [facility] Lab Data Attestation: I reviewed the patient's lab results. Lab results narrative: CBC was reviewed and was within normal limits. Comprehensive metabolic profile was reviewed and was within normal limits. Urinalysis was reviewed. There is no evidence of urinary tract infection or hematuria. Labs: Laboratory Results - last 24 hr 12/15/23 12/15/23 05:12 05:13 WBC 8.5 RBC 4.74 Hgb 13.6 Hct 41.8 MCV 88.2 MCH 28.7 MCHC 32.5 RDW Std Deviation 41.0 RDW Coeff of Davy 12.6 Plt Count 206 MPV 11.7 Immature Gran % (Auto) 0.400 Neut % (Auto) 67.1 Lymph % (Auto) 20.9 Nash % (Auto) 7.6 Eos % (Auto) 3.4 Baso % (Auto) 0.6 Absolute Neuts (auto) 5.7 Absolute Lymphs (auto) 1.77 Nucleated RBC % 0 Sodium 139 Potassium 3.8 Chloride 107 Carbon Dioxide 27.0 Anion Gap 5 BUN 13 Creatinine 0.78 Estim Creat Clear Calc 101.21 Est GFR (MDRD) Af Amer 104 Est GFR (MDRD) Non-Af 86 BUN/Creatinine Ratio 16.8 Glucose 111 H Calcium 8.5 Total Bilirubin 0.40 AST 30 ALT 25 Alkaline Phosphatase 99 Total Protein 6.4 Albumin 3.3 Globulin 3.1 Albumin/Globulin Ratio 1.1 Urine Color Yellow Urine Clarity Clear Urine pH 6.0 Ur Specific Welch 1.020 Urine Protein Negative Urine Glucose (UA) Normal Urine Ketones Negative Urine Occult Blood Negative Urine Nitrite Negative Urine Bilirubin Negative Urine Urobilinogen Normal Ur Leukocyte Esterase Negative Urine RBC 0-5 SEEN Urine WBC 0-5 SEEN Ur Squamous Epith Cells 5-10 SEEN Urine Bacteria RARE Urine Mucus 0 SEEN Radiography Diagnostic Testing: Clinical Impression(s) from Imaging Studies Abdomen/Pelvis CT 12/15/23 04:56 IMPRESSION: 3.5 x 3.3 cm complex right adnexal cyst. If indicated, further evaluation with ultrasound can be performed. No bowel obstruction or inflammation. Normal appendix. Constipation. Stable small fat-containing umbilical hernia. Normal kidneys. No hydronephrosis. Fatty liver. Electronically Signed: Jorge Luis Fortune MD at 7:53 EST , CT scan of the abdomen pelvis was obtained. There is a 3.5 x 3.3 cm right adn exal cyst. There is no evidence of appendicitis or bowel obstruction. This was interpreted by the radiologist and was also independently reviewed by myself. Treatment and Re-Evaluation :: Care of the patient was turned over to me pending labs and CT results. Patient was advised of her findings. Patient still has some mild right lower abdominal tenderness. There is no rebound or guarding noted. Patient is resting comfortably. Patient was given a prescription for Naprosyn for pain. Patient was instructed to follow-up with her primary care physician and [employer] [facility] in 3 to 5 days. Patient was instructed return if worse in any way. Patient understood and was agreeable with the plan. All questions were answered. Discharge Plan Triage Chief Complaint: Abd Pain ED Provider: Luca Olguin Dx/Rx/DC Orders Clinical Impression: Complex cyst of right ovary, Abdominal pain Instructions: ED Ovarian Cyst Prescriptions: New naproxen [Naprosyn] 500 mg tablet 500 mg PO BID PRN (Reason: pain) Qty: 20 0RF No Action albuterol sulfate 90 mcg/actuation HFA aerosol inhaler 2 puff INHALATION PRN PRN (Reason: ASTHMA) Patient Comments: Inhale 2 Puffs as instructed every 4 hours as needed for wheezing/shortness of breath. bupropion HCl 150 mg tablet extended release 24 hr 150 mg PO DAILY Patient Comments: Take 1 tablet by mouth once daily. Primary Care Provider: Tom Gonzáles Referrals: Tom Gonzáles MD [Primary Care Provider] - 3-5 Days Disposition Disposition: Home, Self Care
[2023-12-15] MEDS: 0.9% Normal Saline (1000mL) 1,000 ML 1000 ML IV (05:10)
[2023-12-15] MEDS: Ondansetron 4 MG/2 ML Vial IV (05:10)
--- OUTSIDE RECORDS SUMMARY | 2023-12-15 05:19 | XMS RPT_ITS ---
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 Name Role Phone ANGEL COTTON Primary Care Unavailable ELDERBROCK, ANGEL D Primary Care Unavailable ELDERBROCK, AGNEL D Attending Unavailable ELDERBROCK, ANGEL D Primary Care Unavailable STEPHANIE GAN Attending Unavailable ELDERBROCK, ANGEL Ibis Primary Care Unavailable ELDERBROCK, ANGEL D Attending Unavailable ELDERBROCK, ANGEL D Attending Unavailable ELDERBROCK, ANGEL D Primary Care Unavailable CM, JUAN Referring Unavailable ELDERBROCK, ANGEL D Primary Care Unavailable CM, JUAN Attending Unavailable ELDERBROCK, ANGEL D Primary Care Unavailable ELDERBROCK, ANGEL D Attending Unavailable ELDERBROCK, ANGEL D Primary Care Unavailable ELDERBROCK, ANGEL D Primary Care Unavailable ELDERBROCK, ANGEL D Primary Care Unavailable ELDERBROCK, ANGEL D Primary Care Unavailable ELDERBROCK, ANGEL D Primary Care Unavailable ELDERBROCK, ANGEL D Attending Unavailable PROBLEMS DATE TYPE CONDITION / CODE ATTENDING STATUS [facility] 10/16/2023 Active Acute midline lo w back pain with bilateral sciatica / M54.42(ICD-10) NA Active [facility] 10/16/2023 Active Acute midline lo w back pain with bilateral sciatica / M54.41(ICD-10) NA Active [facility] PROCEDURES No Procedure Records Found RESULTS CNOV Observed: 10/31/2023 9:00 AM Status: COMPLETED Source: [facility] Office Visit (FAMPWS) NASRIN TALLEY ([id number]) 1980 F Date Time Provider Department 10/31/23 9:00 AM ANGEL COTTON During your visit today, we recorded the following information about you: Pulse Respiration Blood pressure Weight 84/minute 18/minute 120/84 101.2 kg Angel Cotton MD 10/31/2023 9:25 AM Signed Chief Complaint Patient presents with: F/U 3 Month HPI Nasrin Talley is a 43 year old female who presents here today for a 3 month follow up. Pt here today for a 3 month follow up. Pain - Was seen acutely by Juan Cm CNP on 10/16/23 for back pain with an x-ray completed. Pain started on 10/10/23. Was treated with Flexeril 10 mg TID prn and Prednisone 10 mg taper. Pt states that that back pain is doing better but still there. Doing stretches that were given to her at appt. Generally better in the morning then through out the day to the evening worsening and needing to use Flexeril 10 mg in the evening to settle things down. Hx of sciatica in the right side. Generally not lasting this long. Pain located in the middle of her back then radiating out bilaterally and shooting down her legs. Over the past two days, her b/l little toes have been going numb or having the sensation of going to sleep . Denies any injury that she's aware of. The day before it started she was wrapping presents and cleaning the house. At the beginning the pain was so severe her had to get her a walker due to not being able to walk without holding something. LADARIUS/Concentration - At previous visit pt reported worsening anxiety and trouble with focus and concentration. Pt feels that since switching to the Zoloft her body is more relaxed and she feels like she is able to relax more. Still struggles with the constant thoughts and trying to focus. Open to try something to help with focus. Follows with Shreya Hurt at [place] for counseling every 3 months. Was d/c off Cymbalta 60 + 30 mg daily and changed to Zoloft 100 mg once daily and using Vistaril 25 mg 1 caps TID prn. Pt was seen for Covid at the end of August. Was treate with Paxlovid. At this time states that she's doing well. 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 Mammogram has been ordered. Past medical history, appointments, medications, allergies reviewed. Previous Medical History PAST MEDICAL HISTORY Diagnosis Date Asthma Cholecystitis with cholelithiasis Colitis GERD (gastroesophageal reflux disease) PCOS (polycystic ovarian syndrome) Rectal bleeding Umbilical hernia Previous Surgical History PAST SURGICAL HISTORY Procedure Laterality Date CHOLECYSTECTOMY HX COLONOSCOPY 02/19/2018 Dr. Joel Barbour, [facility] PAST SURGICAL HISTORY OF PAST SURGICAL HISTORY OF adeniods/tonsillectomy Family History FAMILY HISTORY Problem Relation Age of Onset Allergies Father Allergies Son Asthma Son 2 sons have Cancer Maternal Grandfather Breast Cancer Paternal Grandfather lung Cancer Paternal Grandfather Patient Allergies ALLERGIES No Known Allergies Current Medications Current Outpatient Medications on File Prior to Visit Medication Sig cyclobenzaprine (FLEXERIL) 10 mg tablet Take 1 tablet by mouth every 8 hours as needed for up to 13 days. predniSONE (DELTASONE) 10 mg tablet Take 4 tabs daily for 3 days, then 2 tabs daily for 3 days, then 1 tab daily for 3 days with food. albuterol HFA (VENTOLIN HFA) 90 mcg/actuation inhaler Inhale 2 Puffs as instructed every 4 hours as needed for wheezing/shortness of breath. hydrOXYzine pamoate (VISTARIL) 25 mg capsule Take 1 capsule by mouth three times daily as needed for anxiety. sertraline (ZOLOFT) 100 mg tablet Take 1 tablet by mouth once daily. No current facility-administered medications on file prior to visit. Social History Social History Tobacco Use Smoking status: Never Smokeless tobacco: Never Vaping Use Vaping Use: Never used Substance Use Topics Alcohol use: No Drug use: No EXAM: BP 120/84 (BP Site: Left Arm, BP Position: Sitting, BP Cuff Size: Large Adult) Pulse 84 Resp 18 Wt 101.2 kg (223 lb 3.2 oz) LMP 07/12/2022 (Approximate) BMI 36.03 kg/m? General Appearance: Well appearing, alert, in no acute distress, well-hydrated, well nourished. and Obese. Back: good flexion and extension, pain during exam. Good range of motion. B/L sciatic pain down legs to b/l 5th toes intermittently. Lungs: Lungs clear to auscultation. No wheezing, rhonchi, rales.. Heart: RRR without murmur, gallop, or rubs. No ectopy. Health Maintenance List Mammogram Screening due on 06/14/2023 Depression Assessment due on 10/20/2023 Hepatitis C Screening due on 06/05/2024 HIV Screening due on 06/05/2024 Hepatitis B Vaccine(1 of 3 - 3-dose series) due on 10/16/2024 Pap Testing due on 04/11/2027 HPV Testing due on 04/11/2027 DTaP,Tdap,Td Vaccine(2 - Td or Tdap) due on 07/25/2030 Influenza Vaccine Completed Covid-19 Vaccine Completed HPV Vaccine Aged Out Data reviewed None ASSESSMENT/PLAN: 1. LADARIUS (generalized anxiety disorder) - ICD9: 300.02, ICD10: F41.1 (primary diagnosis) - Stable - May increase in the future if needed - Continue current medication regimen. - SERTRALINE 100 MG TABLET 2. Poor concentration - ICD9: 799.51, ICD10: R41.840 - Start Wellbutrin 150 mg once daily - SERTRALINE 100 MG TABLET - BUPROPION XL 150 MG TAB 3. Sleeping difficulty - ICD9: 780.50, ICD10: G47.9 - Stable - Continue current medication regimen. - SERTRALINE 100 MG TABLET 4. Acute midline low back pain with bilateral sciatica - ICD9: 724.2, 724.3, ICD10: M54.42, M54.41 - Cont Flexeril - Consult PT 3 mo f/u I agree with the Chief Complaint, ROS, and Past Histories independently gathered by the clinical manager sales support and the remaining scribed note accurately describes my personal service to the patient. Medical Decision Making: Problems: Moderate: 2+ stable chronic illnesses Risk: Moderate: Drug management Medical Decision Making Level: 4 - Moderate Angel Cotton MD The documentation for this note was completed by Prachi Carpio Ma acting as scribe for Angel Cotton MD. October 31, 2023 9:05 AM. Prachi Carpio Ma Allergies As of Date: 10/31/2023 (No Known Allergies) Date Reviewed: 10/31/2023 Reviewed by: Prachi Carpio Ma - Fully Assessed Reason for Visit: F/U 3 Month [443] Primary Visit Diagnosis:LADARIUS (generalized anxiety disorder) [F41.1] Other Visit Diagnoses:Poor concentration [R41.840] Sleeping difficulty [G47.9] Acute midline low back pain with bilateral sciatica [M54.42, M54.41] Order(s):sertraline (ZOLOFT) 100 mg tabletTake 1 tablet by mouth once daily.Disp: 30 tabletRfl: 5 buPROPion XL (WELLBUTRIN XL) 150 mg 24 hr tabletTake 1 tablet by mouth once daily.Disp: 30 tabletRfl: 5 CONSULT TO PHYSICAL THERAPY [7802] Order #: [id number]: 1 FUTURE Prescriptions as of 10/31/2023 - sertraline (ZOLOFT) 100 mg tablet Take 1 tablet by mouth once daily. - buPROPion XL (WELLBUTRIN XL) 150 mg 24 hr tablet Take 1 tablet by mouth once daily. - cyclobenzaprine (FLEXERIL) 10 mg tablet Take 1 tablet by mouth every 8 hours as needed for up to 13 days. - albuterol HFA (VENTOLIN HFA) 90 mcg/actuation inhaler Inhale 2 Puffs as instructed every 4 hours as needed for wheezing/shortness of breath. - hydrOXYzine pamoate (VISTARIL) 25 mg capsule Take 1 capsule by mouth three times daily as needed for anxiety. Meds Comments as of 07/07/2020: Drug [facility] RONALD Laurent Problem List As Of Date 10/31/2023 Noted Resolved Obesity, Class II, BMI 35-39.9 [E66.9] 10/01/2021 Tingling of both upper extremities [R20.2] 08/02/2022 COVID [U07.1] 09/09/2023 Prescriptions ordered this encounter Disp Refills Start End SERTRALINE 100 MG TABLET 30 t* 5 10/31/2023 Route: ORAL Sig: Take 1 tablet by mouth once daily. BUPROPION XL 150 MG TAB 30 t* 5 10/31/2023 Route: ORAL Sig: Take 1 tablet by mouth once daily. Medications Discontinued During This Encounter Prescriptions - sertraline (ZOLOFT) 100 mg tablet (Discontinued) Take 1 tablet by mouth once daily. Disposition: Return in about 3 months (around 01/30/2024). Follow-up and Disposition History for Encounter Date Provider Department Center 10/31/2023 [id number] COTTON [facility] Encounter Status:Closed by ANGEL COTTON on 10/31/23 PROGRESS Observed: 10/31/2023 9:00 AM Status: COMPLETED Source: [facility] HNO ID: [id number] Author: ANGEL COTTON MD Service: ? Author Type: Physician Type: Progress Notes Filed: 10/31/2023 09:25 Note Text: Chief Complaint Patient presents with: F/U 3 Month HPI Nasrin Talley is a 43 year old female who presents here today for a 3 month follow up. Pt here today for a 3 month follow up. Pain - Was seen acutely by Juan Cm CNP on 10/16/23 for back pain with an x-ray completed. Pain started on 10/10/23. Was treated with Flexeril 10 mg TID prn and Prednisone 10 mg taper. Pt states that that back pain is doing better but still there. Doing stretches that were given to her at appt. Generally better in the morning then through out the day to the evening worsening and needing to use Flexeril 10 mg in the evening to settle things down. Hx of sciatica in the right side. Generally not lasting this long. Pain located in the middle of her back then radiating out bilaterally and shooting down her legs. Over the past two days, her b/l little toes have been going numb or having the sensation of going to sleep . Denies any injury that she's aware of. The day before it started she was wrapping presents and cleaning the house. At the beginning the pain was so severe her had to get her a walker due to not being able to walk without holding something. LADARIUS/Concentration - At previous visit pt reported worsening anxiety and trouble with focus and concentration. Pt feels that since switching to the Zoloft her body is more relaxed and she feels like she is able to relax more. Still struggles with the constant thoughts and trying to focus. Open to try something to help with focus. Follows with Shreya Hurt at [place] for counseling every 3 months. Was d/c off Cymbalta 60 + 30 mg daily and changed to Zoloft 100 mg once daily and using Vistaril 25 mg 1 caps TID prn. Pt was seen for Covid at the end of August. Was treate with Paxlovid. At this time states that she's doing well. 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 - Depression questionnaire completed, doing well, has a score of 1. Mammogram has been ordered. Past medical history, appointments, medications, allergies reviewed. Previous Medical History PAST MEDICAL HISTORY Diagnosis Date Asthma Cholecystitis with cholelithiasis Colitis GERD (gastroesophageal reflux disease) PCOS (polycystic ovarian syndrome) Rectal bleeding Umbilical hernia Previous Surgical History PAST SURGICAL HISTORY Procedure Laterality Date CHOLECYSTECTOMY HX COLONOSCOPY 02/19/2018 Dr. Joel Barbour, [facility] PAST SURGICAL HISTORY OF PAST SURGICAL HISTORY OF adeniods/tonsillectomy Family History FAMILY HISTORY Problem Relation Age of Onset Allergies Father Allergies Son Asthma Son 2 sons have Cancer Maternal Grandfather Breast Cancer Paternal Grandfather lung Cancer Paternal Grandfather Patient Allergies ALLERGIES No Known Allergies Current Medications Current Outpatient Medications on File Prior to Visit Medication Sig cyclobenzaprine (FLEXERIL) 10 mg tablet Take 1 tablet by mouth every 8 hours as needed for up to 13 days. predniSONE (DELTASONE) 10 mg tablet Take 4 tabs daily for 3 days, then 2 tabs daily for 3 days, then 1 tab daily for 3 days with food. albuterol HFA (VENTOLIN HFA) 90 mcg/actuation inhaler Inhale 2 Puffs as instructed every 4 hours as needed for wheezing/shortness of breath. hydrOXYzine pamoate (VISTARIL) 25 mg capsule Take 1 capsule by mouth three times daily as needed for anxiety. sertraline (ZOLOFT) 100 mg tablet Take 1 tablet by mouth once daily. No current facility-administered medications on file prior to visit. Social History Social History Tobacco Use Smoking status: Never Smokeless tobacco: Never Vaping Use Vaping Use: Never used Substance Use Topics Alcohol use: No Drug use: No EXAM: BP 120/84 (BP Site: Left Arm, BP Position: Sitting, BP Cuff Size: Large Adult) Pulse 84 Resp 18 Wt 101.2 kg (223 lb 3.2 oz) LMP 07/12/2022 (Approximate) BMI 36.03 kg/m? General Appearance: Well appearing, alert, in no acute distress, well-hydrated, well nourished. and Obese. Back: good flexion and extension, pain during exam. Good range of motion. B/L sciatic pain down legs to b/l 5th toes intermittently. Lungs: Lungs clear to auscultation. No wheezing, rhonchi, rales.. Heart: RRR without murmur, gallop, or rubs. No ectopy. Health Maintenance List Mammogram Screening due on 06/14/2023 Depression Assessment due on 10/20/2023 Hepatitis C Screening due on 06/05/2024 HIV Screening due on 06/05/2024 Hepatitis B Vaccine(1 of 3 - 3-dose series) due on 10/16/2024 Pap Testing due on 04/11/2027 HPV Testing due on 04/11/2027 DTaP,Tdap,Td Vaccine(2 - Td or Tdap) due on 07/25/2030 Influenza Vaccine Completed Covid-19 Vaccine Completed HPV Vaccine Aged Out Data reviewed None ASSESSMENT/PLAN: 1. LADARIUS (generalized anxiety disorder) - ICD9: 300.02, ICD10: F41.1 (primary diagnosis) - Stable - May increase in the future if needed - Continue current medication regimen. - SERTRALINE 100 MG TABLET 2. Poor concentration - ICD9: 799.51, ICD10: R41.840 - Start Wellbutrin 150 mg once daily - SERTRALINE 100 MG TABLET - BUPROPION XL 150 MG TAB 3. Sleeping difficulty - ICD9: 780.50, ICD10: G47.9 - Stable - Continue current medication regimen. - SERTRALINE 100 MG TABLET 4. Acute midline low back pain with bilateral sciatica - ICD9: 724.2, 724.3, ICD10: M54.42, M54.41 - Cont Flexeril - Consult PT 3 mo f/u I agree with the Chief Complaint, ROS, and Past Histories independently gathered by the clinical manager sales support and the remaining scribed note accurately describes my personal service to the patient. Medical Decision Making: Problems: Moderate: 2+ stable chronic illnesses Risk: Moderate: Drug management Medical Decision Making Level: 4 - Moderate Angel Cotton MD The documentation for this note was completed by Prachi Carpio Ma acting as scribe for Angel Cotton MD. October 31, 2023 9:05 AM. Prachi Carpio Ma XR LUMBAR 3V AP/LAT/L5-S1 Observed: 09/20 3:41 PM Status: F Source: [facility] * * *Final Report* * * DATE OF EXAM: Oct 16 2023 3:41PM WOX [id number] - XR LUMBAR 3V AP/LAT/L5-S1 / PROCEDURE REASON: multiple diagnoses * * * * Physician Interpretation * * * * EXAM TITLE: XR LUMBAR 3V AP/LAT/L5-S1 EXAM DATE/TIME: 10/16/2023 3:41 PM COMPARISON: None. CLINICAL INDICATION/HISTORY: Low back pain TECHNIQUE: AP, lateral and cone down lateral views of the lumbar spine are presented. FINDINGS: There are five yib-olt-hknhuig lumbar vertebrae. No fracture or subluxations are noted. The disc spaces are grossly preserved. There is mild osteophyte formation. IMPRESSION: Lumbar spine mild degenerative changes. Laundry Press Operator: PSCB Transcribe Date/Time: Oct 21 2023 8:38A Dictated by : MARGARITO FRYE MD This examination was interpreted and the report reviewed and electronically signed by: MARGARITO FRYE MD on Oct 21 2023 8:40AM EST [id number] PROGRESS Observed: 10/16/2023 3:30 PM Status: COMPLETED Source: [facility] HNO ID: [id number] Author: Marlene Pizarro RT(Donovan) Service: Radiology Author Type: Technologist Type: Progress Notes Filed: 10/16/2023 3:42 PM Note Text: Radiology Service Progress Note PATIENT NAME: Nasrin Talley DATE OF SERVICE: October 16, 2023 TIME: 3:28 PM PATIENT IDENTITY VERIFICATION COMPLETED USING TWO (2) IDENTIFIERS: Name and Date of confirmed by patient verbally. FALL SCREENING: Has the patient had 2 falls in the last year or 1 fall with injury or currently using an Ambulatory Assistive Device (Walker, Cane, Wheelchair, Crutches, etc.)? No PATIENT GENDER DATA: Female. status: : No status: NO. PATIENT RELEVANT IMPLANT DATA REVIEWED: Not Applicable RADIOLOGY DEPARTMENT: General X-ray: Exam(s) Completed: Spine X-Ray(s): Lumbar AP / LAT / L5-S1 PERIPHERAL IV DATA: Not applicable SIGNED BY: RT Jayy(R) October 16, 2023 3:28 PM CNOV Observed: 10/16/2023 2:40 PM Status: COMPLETED Source: [facility] Office Visit (FAMPWS) NASRIN TALLEY ([id number]) 1980 F Date Time Provider Department 10/16/23 2:40 PM [facility] During your visit today, we recorded the following information about you: Pulse Respiration Blood pressure Weight 91/minute 12/minute 100/60 102.9 kg Juan Cm APRN.LEGAL ENTITY CONTROLLER 10/16/2023 3:24 PM Signed Chief Complaint Patient presents with: low back pain and spasms since : No injury noted but was wrapping a lot of presents and doing a good house cleaning HPI Nasrin Talley is a 43 year old female who presents here today for Above Complaints. Nasrin is an established patient of Dr. Nivia MD. She is a new patient to me today. Concerns today... Lower back pain --- Since Oct 10 after sitting on floor to wrap presents. Midline lower back pain that radiates to both sides of lower back ( R > L) and to bilateral hips and down bilateral buttock. Reports back spasms off and on. No known injury, fall, or lifting extremely heavy objects. Reports pain to be severe -- constant dull ache and shooting, stabbing pains intermittently. Bought a walker just to help take pressure of lower back. Walking does make pain worse. Has tried alleve, advil, heating pad, and ice without much relief. Has had similar discomfort in the past but it has never lasted this long. Denies any abd pain, flank pain, incontinence, urinary symptoms or GI symptoms. No other concerns or complaints. Past medical history, appointments, medications, allergies reviewed. Previous Medical History PAST MEDICAL HISTORY Diagnosis Date Asthma Cholecystitis with cholelithiasis Colitis GERD (gastroesophageal reflux disease) PCOS (polycystic ovarian syndrome) Rectal bleeding Umbilical hernia Previous Surgical History PAST SURGICAL HISTORY Procedure Laterality Date CHOLECYSTECTOMY HX COLONOSCOPY 02/19/2018 Dr. Joel Barbour, [facility] PAST SURGICAL HISTORY OF PAST SURGICAL HISTORY OF adeniods/tonsillectomy Family History FAMILY HISTORY Problem Relation Age of Onset Allergies Father Allergies Son Asthma Son 2 sons have Cancer Maternal Grandfather Breast Cancer Paternal Grandfather lung Cancer Paternal Grandfather Patient Allergies ALLERGIES No Known Allergies Current Medications Current Outpatient Medications on File Prior to Visit Medication Sig benzonatate (TESSALON PERLES) 100 mg capsule Take 2 capsules by mouth three times a day as needed. albuterol HFA (VENTOLIN HFA) 90 mcg/actuation inhaler Inhale 2 Puffs as instructed every 4 hours as needed for wheezing/shortness of breath. hydrOXYzine pamoate (VISTARIL) 25 mg capsule Take 1 capsule by mouth three times daily as needed for anxiety. sertraline (ZOLOFT) 100 mg tablet Take 1 tablet by mouth once daily. phenazopyridine (PYRIDIUM) 200 mg tablet Take 1 tablet by mouth three times daily as needed. (Patient not taking: Reported on 09/08/2023) pantoprazole DR (PROTONIX) 40 mg tablet Take 40 mg by mouth once daily. ondansetron (ZOFRAN) 4 mg tablet Take 1 tablet by mouth every 8 hours as needed. No current facility-administered medications on file prior to visit. Social History Social History Tobacco Use Smoking status: Never Smokeless tobacco: Never Vaping Use Vaping Use: Never used Substance Use Topics Alcohol use: No Drug use: No REVIEW OF SYSTEMS: as above Reviewed relevant PMHx, PSHx, Social Hx, current medications and allergies. Review of Symptoms REVIEW OF SYSTEMS See HPI. EXAM: BP 100/60 (BP Site: Left Arm, BP Position: Sitting, BP Cuff Size: Large Adult) Pulse 91 Resp 12 Wt 102.9 kg (226 lb 12.8 oz) LMP 07/12/2022 (Approximate) SpO2 98% BMI 36.61 kg/m? General Appearance: Well appearing, alert, in no acute distress, well-hydrated, well nourished.. Skin: Skin color, texture, turgor normal, no suspicious rashes or lesions. Abdomen: Normal abdominal exam, Abdomen soft, non-tender. Bowel sounds normal. No masses, organomegaly, Negative CVA tenderness. Extremities: No deformities, edema, skin discoloration, clubbing or cyanosis. Good capillary refill. Musculoskeletal: Positive findings: tenderness on palpitation to lumbar midline lower spine and across lower back, R lower back more tender than L lower back. Peripheral Pulses: Normal, Capillary refill <2secs, strong peripheral pulses. Full ROM of spine with significant discomfort. Health Maintenance List Hepatitis B Vaccine(1 of 3 - 3-dose series) Never done Mammogram Screening due on 06/14/2023 Hepatitis C Screening due on 06/05/2024 HIV Screening due on 06/05/2024 Pap Testing due on 04/11/2027 HPV Testing due on 04/11/2027 DTaP,Tdap,Td Vaccine(2 - Td or Tdap) due on 07/25/2030 Influenza Vaccine Completed Depression Assessment Completed Covid-19 Vaccine Completed HPV Vaccine Aged Out ASSESSMENT/PLAN: 1. Acute midline low back pain with bilateral sciatica - ICD9: 724.2, 724.3, ICD10: M54.42, M54.41 Sciatica - Ice for localized tenderness - Warm moist heat for 20 min three times a day - Printed out at home stretches to do for sciatica nerve pain. - Prednisone taper- see orders - Muscle relaxant- see orders - Xrays- see orders - XR LUMBAR GENERAL 3V AP/LAT/L5-S1 - PREDNISONE 10 MG TABLET - CYCLOBENZAPRINE 10 MG TABLET RTO if no improvement. Prescription instructions reviewed with patient as applicable. Potential red flag symptoms discussed with the patient. Reviewed appropriate action plan to take if red flag symptoms occur. Patient agreeable to treatment plan. Juan Tatum APRN.LEGAL ENTITY CONTROLLER [address] [place] [address] Juan Cm APRN.CNP 10/16/2023 3:10 PM Signed Allergies As of Date: 10/16/2023 (No Known Allergies) Date Reviewed: 10/16/2023 Reviewed by: Juan Cm APRN.CNP - Fully Assessed Reason for Visit: low back pain and spasms since [Other] Cmt: No injury noted but was wrapping a lot of presents and doing a good house cleaning Primary Visit Diagnosis:Acute midline low back pain with bilateral sciatica [M54.42, M54.41] Order(s):XR LUMBAR GENERAL 3V AP/LAT/L5-S1 [[id number]] Order #: [id number] FUTURE predniSONE (DELTASONE) 10 mg tabletTake 4 tabs daily for 3 days, then 2 tabs daily for 3 days, then 1 tab daily for 3 days with food.Disp: 21 tabletRfl: 0 cyclobenzaprine (FLEXERIL) 10 mg tabletTake 1 tablet by mouth every 8 hours as needed for up to 5 days.Disp: 10 tabletRfl: 0 Prescriptions as of 10/16/2023 - predniSONE (DELTASONE) 10 mg tablet Take 4 tabs daily for 3 days, then 2 tabs daily for 3 days, then 1 tab daily for 3 days with food. - cyclobenzaprine (FLEXERIL) 10 mg tablet Take 1 tablet by mouth every 8 hours as needed for up to 5 days. - albuterol HFA (VENTOLIN HFA) 90 mcg/actuation inhaler Inhale 2 Puffs as instructed every 4 hours as needed for wheezing/shortness of breath. - hydrOXYzine pamoate (VISTARIL) 25 mg capsule Take 1 capsule by mouth three times daily as needed for anxiety. - sertraline (ZOLOFT) 100 mg tablet Take 1 tablet by mouth once daily. Meds Comments as of 07/07/2020: Drug Allen Mehran ND Problem List As Of Date 10/16/2023 Noted Resolved Obesity, Class II, BMI 35-39.9 [E66.9] 10/01/2021 Tingling of both upper extremities [R20.2] 08/02/2022 COVID [U07.1] 09/09/2023 Other instructions from your clinician: Prescriptions ordered this encounter Disp Refills Start End PREDNISONE 10 MG TABLET 21 t* 0 10/16/2023 10/25/2023 Sig: Take 4 tabs daily for 3 days, then 2 tabs daily for 3 days, then 1 tab daily for 3 days with food. CYCLOBENZAPRINE 10 MG TABLET 10 t* 0 10/16/2023 10/21/2023 Route: ORAL Sig: Take 1 tablet by mouth every 8 hours as needed for up to 5 days. Medications Discontinued During This Encounter Prescriptions - ondansetron (ZOFRAN) 4 mg tablet (Discontinued) Reported on 10/16/2023 - pantoprazole DR (PROTONIX) 40 mg tablet (Discontinued) Reported on 10/16/2023 - phenazopyridine (PYRIDIUM) 200 mg tablet (Discontinued) Reported on 09/08/2023 - benzonatate (TESSALON PERLES) 100 mg capsule (Discontinued) Reported on 10/16/2023 Disposition: Return if symptoms worsen or fail to improve. Follow-up and Disposition History for Encounter Date Provider Department Center 10/16/2023 [id number], ALYSON FAMPWS [facility] Encounter Status:Closed by JUAN CM on 10/16/23 PROGRESS Observed: 10/16/2023 2:40 PM Status: COMPLETED Source: [facility] HNO ID: [id number] Author: Juan Cm APRN.LEGAL ENTITY CONTROLLER Service: ? Author Type: Nurse Practitioner Type: Progress Notes Filed: 10/16/2023 3:24 PM Note Text: Chief Complaint Patient presents with: low back pain and spasms since : No injury noted but was wrapping a lot of presents and doing a good house cleaning HPI Nasrin Talley is a 43 year old female who presents here today for Above Complaints. Nasrin is an established patient of Dr. Nivia MD. She is a new patient to me today. Concerns today... Lower back pain --- Since Oct 10 after sitting on floor to wrap presents. Midline lower back pain that radiates to both sides of lower back ( R > L) and to bilateral hips and down bilateral buttock. Reports back spasms off and on. No known injury, fall, or lifting extremely heavy objects. Reports pain to be severe -- constant dull ache and shooting, stabbing pains intermittently. Bought a walker just to help take pressure of lower back. Walking does make pain worse. Has tried alleve, advil, heating pad, and ice without much relief. Has had similar discomfort in the past but it has never lasted this long. Denies any abd pain, flank pain, incontinence, urinary symptoms or GI symptoms. No other concerns or complaints. Past medical history, appointments, medications, allergies reviewed. Previous Medical History PAST MEDICAL HISTORY Diagnosis Date Asthma Cholecystitis with cholelithiasis Colitis GERD (gastroesophageal reflux disease) PCOS (polycystic ovarian syndrome) Rectal bleeding Umbilical hernia Previous Surgical History PAST SURGICAL HISTORY Procedure Laterality Date CHOLECYSTECTOMY HX COLONOSCOPY 02/19/2018 Dr. Joel Barbour, [facility] PAST SURGICAL HISTORY OF PAST SURGICAL HISTORY OF adeniods/tonsillectomy Family History FAMILY HISTORY Problem Relation Age of Onset Allergies Father Allergies Son Asthma Son 2 sons have Cancer Maternal Grandfather Breast Cancer Paternal Grandfather lung Cancer Paternal Grandfather Patient Allergies ALLERGIES No Known Allergies Current Medications Current Outpatient Medications on File Prior to Visit Medication Sig benzonatate (TESSALON PERLES) 100 mg capsule Take 2 capsules by mouth three times a day as needed. albuterol HFA (VENTOLIN HFA) 90 mcg/actuation inhaler Inhale 2 Puffs as instructed every 4 hours as needed for wheezing/shortness of breath. hydrOXYzine pamoate (VISTARIL) 25 mg capsule Take 1 capsule by mouth three times daily as needed for anxiety. sertraline (ZOLOFT) 100 mg tablet Take 1 tablet by mouth once daily. phenazopyridine (PYRIDIUM) 200 mg tablet Take 1 tablet by mouth three times daily as needed. (Patient not taking: Reported on 09/08/2023) pantoprazole DR (PROTONIX) 40 mg tablet Take 40 mg by mouth once daily. ondansetron (ZOFRAN) 4 mg tablet Take 1 tablet by mouth every 8 hours as needed. No current facility-administered medications on file prior to visit. Social History Social History Tobacco Use Smoking status: Never Smokeless tobacco: Never Vaping Use Vaping Use: Never used Substance Use Topics Alcohol use: No Drug use: No REVIEW OF SYSTEMS: as above Reviewed relevant PMHx, PSHx, Social Hx, current medications and allergies. Review of Symptoms REVIEW OF SYSTEMS See HPI. EXAM: BP 100/60 (BP Site: Left Arm, BP Position: Sitting, BP Cuff Size: Large Adult) Pulse 91 Resp 12 Wt 102.9 kg (226 lb 12.8 oz) LMP 07/12/2022 (Approximate) SpO2 98% BMI 36.61 kg/m? General Appearance: Well appearing, alert, in no acute distress, well-hydrated, well nourished.. Skin: Skin color, texture, turgor normal, no suspicious rashes or lesions. Abdomen: Normal abdominal exam, Abdomen soft, non-tender. Bowel sounds normal. No masses, organomegaly, Negative CVA tenderness. Extremities: No deformities, edema, skin discoloration, clubbing or cyanosis. Good capillary refill. Musculoskeletal: Positive findings: tenderness on palpitation to lumbar midline lower spine and across lower back, R lower back more tender than L lower back. Peripheral Pulses: Normal, Capillary refill <2secs, strong peripheral pulses. Full ROM of spine with significant discomfort. Health Maintenance List Hepatitis B Vaccine(1 of 3 - 3-dose series) Never done Mammogram Screening due on 06/14/2023 Hepatitis C Screening due on 06/05/2024 HIV Screening due on 06/05/2024 Pap Testing due on 04/11/2027 HPV Testing due on 04/11/2027 DTaP,Tdap,Td Vaccine(2 - Td or Tdap) due on 07/25/2030 Influenza Vaccine Completed Depression Assessment Completed Covid-19 Vaccine Completed HPV Vaccine Aged Out ASSESSMENT/PLAN: 1. Acute midline low back pain with bilateral sciatica - ICD9: 724.2, 724.3, ICD10: M54.42, M54.41 Sciatica - Ice for localized tenderness - Warm moist heat for 20 min three times a day - Printed out at home stretches to do for sciatica nerve pain. - Prednisone taper- see orders - Muscle relaxant- see orders - Xrays- see orders - XR LUMBAR GENERAL 3V AP/LAT/L5-S1 - PREDNISONE 10 MG TABLET - CYCLOBENZAPRINE 10 MG TABLET RTO if no improvement. Prescription instructions reviewed with patient as applicable. Potential red flag symptoms discussed with the patient. Reviewed appropriate action plan to take if red flag symptoms occur. Patient agreeable to treatment plan. Juan Tatum APRN.LEGAL ENTITY CONTROLLER [address] [place] [address] PROGRESS Observed: 09/09/2023 10:18 AM Status: COMPLETED Source: [facility] HNO ID: [id number] Author: Angel Cotton MD Service: ? Author Type: Physician Type: Progress Notes Filed: 09/09/2023 10:22 AM Note Text: Nirmatrelvir/Ritonavir (Paxlovid) Considerations Paxlovid is FDA-approved for treatment of mild to moderate COVID-19 in adults who are at high risk for progression to severe COVID-19. Consider use of Paxlovid in the following examples of high risk patients (list is not all inclusive): Age over 65 years Cardiovascular and cerebrovascular disease Chronic disease state (kidney, liver, lung) Diabetes (type 1 or type 2) Immunocompromised state (cancer, solid organ or blood stem cell transplant, HIV) Obesity Paxlovid warnings include serious drug interactions (co-administration with drugs highly dependent on CYP3A for clearance), hypersensitivity reactions, hepatotoxicity, and risk of HIV-1 resistance development. Angel Cotton MD September 09, 2023 10:18 AM PROGRESS Observed: 09/09/2023 10:13 AM Status: COMPLETED Source: [facility] HNO ID: [id number] Author: Angel Cotton MD Service: ? Author Type: Physician Type: Progress Notes Filed: 09/09/2023 10:22 AM Note Text: Chief Complaint Patient presents with: Covid Positive HPI: This Team Access Model visit is a virtual/phone encounter. It required patient-provider interaction for the medical decision making as documented below. Patient was offered a virtual/telemedicine appointment in lieu of an office visit due to recommendations to reduce patient exposure to COVID-19. Patient is aware of limitations of performing the visit without a face to face visit in the office setting and agrees. I have communicated my name and active licensure. The patient's identity and physical location were verified at the time of this visit. Either the patient or their legal union representative has been informed of the risks and benefits of -- and alternatives to -- treatment through a remote evaluation and consents to proceed with the evaluation remotely. Pt tested positive for Covid at home. Wants to get on Paxlovid. Symptoms started 2-3 days ago. Feeling some better today. Express Care note from yesterday: Presents with a chief complaint of cough and congestion over the past 2 days. She has had a fever as well. She does have a history of asthma and did use her albuterol inhaler. Denies chest pain. States she has had some shortness of breath off and on. No diarrhea or vomiting. She has had runny nose. No home COVID test done. 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 Review of Systems Constitutional: Positive for fatigue and fever. HENT: Positive for congestion, rhinorrhea and sore throat. Negative for ear pain. Respiratory: Positive for cough. Cardiovascular: Negative. Genitourinary: Negative. Musculoskeletal: Positive for myalgias. Neurological: Positive for headaches. All other systems reviewed and are negative. Past medical history, appointments, medications, allergies reviewed. Previous Medical History PAST MEDICAL HISTORY Diagnosis Date Asthma Cholecystitis with cholelithiasis Colitis GERD (gastroesophageal reflux disease) PCOS (polycystic ovarian syndrome) Rectal bleeding Umbilical hernia Previous Surgical History PAST SURGICAL HISTORY Procedure Laterality Date CHOLECYSTECTOMY HX COLONOSCOPY 02/19/2018 Dr. Joel Barbour, [facility] PAST SURGICAL HISTORY OF PAST SURGICAL HISTORY OF adeniods/tonsillectomy Family History FAMILY HISTORY Problem Relation Age of Onset Allergies Father Allergies Son Asthma Son 2 sons have Cancer Maternal Grandfather Breast Cancer Paternal Grandfather lung Cancer Paternal Grandfather Patient Allergies ALLERGIES No Known Allergies Current Medications Current Outpatient Medications on File Prior to Visit Medication Sig benzonatate (TESSALON PERLES) 100 mg capsule Take 2 capsules by mouth three times a day as needed. albuterol HFA (VENTOLIN HFA) 90 mcg/actuation inhaler Inhale 2 Puffs as instructed every 4 hours as needed for wheezing/shortness of breath. hydrOXYzine pamoate (VISTARIL) 25 mg capsule Take 1 capsule by mouth three times daily as needed for anxiety. sertraline (ZOLOFT) 100 mg tablet Take 1 tablet by mouth once daily. phenazopyridine (PYRIDIUM) 200 mg tablet Take 1 tablet by mouth three times daily as needed. (Patient not taking: Reported on 09/08/2023) pantoprazole DR (PROTONIX) 40 mg tablet Take 40 mg by mouth once daily. ondansetron (ZOFRAN) 4 mg tablet Take 1 tablet by mouth every 8 hours as needed. No current facility-administered medications on file prior to visit. Social History Social History Tobacco Use Smoking status: Never Smokeless tobacco: Never Vaping Use Vaping Use: Never used Substance Use Topics Alcohol use: No Drug use: No EXAM: LMP 07/12/2022 (Approximate) Cough and congestion noted on phone, no resp distress. Health Maintenance List Hepatitis B Vaccine(1 of 3 - 3-dose series) Never done Mammogram Screening due on 06/14/2023 Hepatitis C Screening due on 06/05/2024 HIV Screening due on 06/05/2024 Pap Testing due on 04/11/2027 HPV Testing due on 04/11/2027 DTaP,Tdap,Td Vaccine(2 - Td or Tdap) due on 07/25/2030 Influenza Vaccine Completed Depression Assessment Completed Covid-19 Vaccine Completed HPV Vaccine Aged Out Data reviewed none ASSESSMENT/PLAN: 1. COVID - ICD9: 079.89, ICD10: U07.1 Risk factors of obesity and asthma Within 5 day window Will start Paxlovid; discussed guidelines for isolation - NIRMATRELVIR 300 MG (150 MG X2)-RITONAVIR 100 MG TABLET,DOSE PACK I agree with the Chief Complaint, ROS, and Past Histories independently gathered by the clinical manager sales support and the remaining scribed note accurately describes my personal service to the patient. 5-10 minutes of time spent on phone call Angel Cotton MD The documentation for this note was completed by Linda Bassett Ma acting as scribe for Angel Cotton MD. September 09, 2023 10:13 AM. Linda Bassett Ma PROGRESS Observed: 09/08/2023 8:04 AM Status: COMPLETED Source: [facility] HNO ID: [id number] Author: Joo Leger PA-C Service: ? Author Type: Physician Automobile Mechanic Motor Type: Progress Notes Filed: 09/08/2023 8:08 AM Note Text: This note was created using SpecifiedByter. Subjective Nasrin Talley is a 43 year old female. HPI Presents with a chief complaint of cough and congestion over the past 2 days. She has had a fever as well. She does have a history of asthma and did use her albuterol inhaler. Denies chest pain. States she has had some shortness of breath off and on. No diarrhea or vomiting. She has had runny nose. No home COVID test done. 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 Review of Systems Constitutional: Positive for fatigue and fever. HENT: Positive for congestion, rhinorrhea and sore throat. Negative for ear pain. Respiratory: Positive for cough. Cardiovascular: Negative. Genitourinary: Negative. Musculoskeletal: Positive for myalgias. Neurological: Positive for headaches. All other systems reviewed and are negative. PAST MEDICAL HISTORY Diagnosis Date Asthma Cholecystitis with cholelithiasis Colitis GERD (gastroesophageal reflux disease) PCOS (polycystic ovarian syndrome) Rectal bleeding Umbilical hernia Current Outpatient Medications Medication Sig Dispense Refill albuterol HFA (VENTOLIN HFA) 90 mcg/actuation inhaler Inhale 2 Puffs as instructed every 4 hours as needed for wheezing/shortness of breath. 18 g 2 hydrOXYzine pamoate (VISTARIL) 25 mg capsule Take 1 capsule by mouth three times daily as needed for anxiety. 30 capsule 5 sertraline (ZOLOFT) 100 mg tablet Take 1 tablet by mouth once daily. [address] (PROTONIX) 40 mg tablet Take 40 mg by mouth once daily. ondansetron (ZOFRAN) 4 mg tablet Take 1 tablet by mouth every 8 hours as needed. 21 tablet 2 benzonatate (TESSALON PERLES) 100 mg capsule Take 2 capsules by mouth three times a day as needed. 30 capsule 0 phenazopyridine (PYRIDIUM) 200 mg tablet Take 1 tablet by mouth three times daily as needed. (Patient not taking: Reported on 09/08/2023) 10 tablet 0 No current facility-administered medications for this visit. PAST SURGICAL HISTORY Procedure Laterality Date CHOLECYSTECTOMY HX COLONOSCOPY 02/19/2018 Dr. Joel Barbour, [facility] PAST SURGICAL HISTORY OF PAST SURGICAL HISTORY OF adeniods/tonsillectomy FAMILY HISTORY Problem Relation Age of Onset Allergies Father Allergies Son Asthma Son 2 sons have Cancer Maternal Grandfather Breast Cancer Paternal Grandfather lung Cancer Paternal Grandfather Social History Tobacco Use Smoking status: Never Smokeless tobacco: Never Vaping Use Vaping Use: Never used Substance Use Topics Alcohol use: No Drug use: No Objective BP 104/80 Pulse 117 Temp 37.3 ?C (99.1 ?F) Resp 21 Wt 104.7 kg (230 lb 12.8 oz) LMP 07/12/2022 (Approximate) SpO2 99% BMI 37.25 kg/m? Physical Exam Vitals reviewed. Constitutional: Appearance: Normal appearance. HENT: Head: Normocephalic and atraumatic. Right Ear: Tympanic membrane, ear canal and external ear normal. Left Ear: Tympanic membrane, ear canal and external ear normal. Nose: Congestion present. Mouth/Throat: Mouth: Mucous membranes are moist. Pharynx: Oropharynx is clear. Cardiovascular: Rate and Rhythm: Normal rate and regular rhythm. Heart sounds: Normal heart sounds. Pulmonary: Effort: Pulmonary effort is normal. Breath sounds: Normal breath sounds. Musculoskeletal: Cervical back: Neck supple. Skin: General: Skin is warm and dry. Findings: No rash. Neurological: Mental Status: She is alert. Assessment and Plan ASSESSMENT/PLAN: 1. Viral URI with cough - ICD9: 465.9, ICD10: J06.9 - Discussed viral etiology and rationale for treatment. - Symptomatic treatment with prn analgesia - Supportive care with fluids and rest - The patient may also use OTC cough and cold meds as needed. - BENZONATATE 100 MG CAPSULE - COVID AND INFLUENZA A/B AND RSV NAAT, ROUTINE Joo Leger PA-C COVID AND INFLUENZA A/B AND RSV NAAT, ROUTINE Observed: 09/08/2023 7:52 AM Status: F Source: [facility] COVID 19 RESULT: Detected The method used is RT-PCR or an equivalent NAAT method. Reference Range (the expected result in uninfected individuals): Not detected INFLUENZA A PCR: Not detectedINFLUENZA B PCR: Not detectedRSV PCR: Not detected Performed By: #### CVFLRS ## ## [facility] CLIA [id number] [address] [place] [address] OF [facility] CNOV Observed: 09/08/2023 7:00 AM Status: COMPLETED Source: [facility] Office Visit (WSTR) NASRIN TALLEY ([id number]) 1980 F Date Time Provider Department 09/08/23 7:00 AM JOO LEGER WSTR During your visit today, we recorded the following information about you: Temperature Pulse Respiration Blood pressure 99.1 degrees 117/minute 21/minute 104/80 Weight 104.7 kg Joo Leger PA-C 09/08/2023 8:08 AM Signed This note was created using NoteWriter. Subjective Nasrin Talley is a 43 year old female. HPI Presents with a chief complaint of cough and congestion over the past 2 days. She has had a fever as well. She does have a history of asthma and did use her albuterol inhaler. Denies chest pain. States she has had some shortness of breath off and on. No diarrhea or vomiting. She has had runny nose. No home COVID test done. 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 Review of Systems Constitutional: Positive for fatigue and fever. HENT: Positive for congestion, rhinorrhea and sore throat. Negative for ear pain. Respiratory: Positive for cough. Cardiovascular: Negative. Genitourinary: Negative. Musculoskeletal: Positive for myalgias. Neurological: Positive for headaches. All other systems reviewed and are negative. PAST MEDICAL HISTORY Diagnosis Date Asthma Cholecystitis with cholelithiasis Colitis GERD (gastroesophageal reflux disease) PCOS (polycystic ovarian syndrome) Rectal bleeding Umbilical hernia Current Outpatient Medications Medication Sig Dispense Refill albuterol HFA (VENTOLIN HFA) 90 mcg/actuation inhaler Inhale 2 Puffs as instructed every 4 hours as needed for wheezing/shortness of breath. 18 g 2 hydrOXYzine pamoate (VISTARIL) 25 mg capsule Take 1 capsule by mouth three times daily as needed for anxiety. 30 capsule 5 sertraline (ZOLOFT) 100 mg tablet Take 1 tablet by mouth once daily. [address] (PROTONIX) 40 mg tablet Take 40 mg by mouth once daily. ondansetron (ZOFRAN) 4 mg tablet Take 1 tablet by mouth every 8 hours as needed. 21 tablet 2 benzonatate (TESSALON PERLES) 100 mg capsule Take 2 capsules by mouth three times a day as needed. 30 capsule 0 phenazopyridine (PYRIDIUM) 200 mg tablet Take 1 tablet by mouth three times daily as needed. (Patient not taking: Reported on 09/08/2023) 10 tablet 0 No current facility-administered medications for this visit. PAST SURGICAL HISTORY Procedure Laterality Date CHOLECYSTECTOMY HX COLONOSCOPY 02/19/2018 Dr. Joel Barbour, [facility] PAST SURGICAL HISTORY OF PAST SURGICAL HISTORY OF adeniods/tonsillectomy FAMILY HISTORY Problem Relation Age of Onset Allergies Father Allergies Son Asthma Son 2 sons have Cancer Maternal Grandfather Breast Cancer Paternal Grandfather lung Cancer Paternal Grandfather Social History Tobacco Use Smoking status: Never Smokeless tobacco: Never Vaping Use Vaping Use: Never used Substance Use Topics Alcohol use: No Drug use: No Objective BP 104/80 Pulse 117 Temp 37.3 ?C (99.1 ?F) Resp 21 Wt 104.7 kg (230 lb 12.8 oz) LMP 07/12/2022 (Approximate) SpO2 99% BMI 37.25 kg/m? Physical Exam Vitals reviewed. Constitutional: Appearance: Normal appearance. HENT: Head: Normocephalic and atraumatic. Right Ear: Tympanic membrane, ear canal and external ear normal. Left Ear: Tympanic membrane, ear canal and external ear normal. Nose: Congestion present. Mouth/Throat: Mouth: Mucous membranes are moist. Pharynx: Oropharynx is clear. Cardiovascular: Rate and Rhythm: Normal rate and regular rhythm. Heart sounds: Normal heart sounds. Pulmonary: Effort: Pulmonary effort is normal. Breath sounds: Normal breath sounds. Musculoskeletal: Cervical back: Neck supple. Skin: General: Skin is warm and dry. Findings: No rash. Neurological: Mental Status: She is alert. Assessment and Plan ASSESSMENT/PLAN: 1. Viral URI with cough - ICD9: 465.9, ICD10: J06.9 - Discussed viral etiology and rationale for treatment. - Symptomatic treatment with prn analgesia - Supportive care with fluids and rest - The patient may also use OTC cough and cold meds as needed. - BENZONATATE 100 MG CAPSULE - COVID AND INFLUENZA A/B AND RSV NAAT, ROUTINE NOEMY Leroy-C Allergies As of Date: 09/08/2023 (No Known Allergies) Date Reviewed: 09/08/2023 Reviewed by: Mariely Menard MA - Fully Assessed Reason for Visit: Cough [28] Cmt: Fever, ROMERO, body aches, congestion x 2 days Primary Visit Diagnosis:Viral URI with cough [J06.9] Order(s):benzonatate (TESSALON PERLES) 100 mg capsuleTake 2 capsules by mouth three times a day as needed.Disp: 30 capsuleRfl: 0 COVID AND INFLUENZA A/B AND RSV NAAT, ROUTINE [[id number]] Order #: [id number]. #:[id number] Prescriptions as of 09/08/2023 - benzonatate (TESSALON PERLES) 100 mg capsule Take 2 capsules by mouth three times a day as needed. - albuterol HFA (VENTOLIN HFA) 90 mcg/actuation inhaler Inhale 2 Puffs as instructed every 4 hours as needed for wheezing/shortness of breath. - hydrOXYzine pamoate (VISTARIL) 25 mg capsule Take 1 capsule by mouth three times daily as needed for anxiety. - sertraline (ZOLOFT) 100 mg tablet Take 1 tablet by mouth once daily. - phenazopyridine (PYRIDIUM) 200 mg tablet Take 1 tablet by mouth three times daily as needed. - pantoprazole DR (PROTONIX) 40 mg tablet Take 40 mg by mouth once daily. - ondansetron (ZOFRAN) 4 mg tablet Take 1 tablet by mouth every 8 hours as needed. Meds Comments as of 07/07/2020: Drug Allen RONALD Laurent Problem List As Of Date 09/08/2023 Noted Resolved Obesity, Class II, BMI 35-39.9 [E66.9] 10/01/2021 Tingling of both upper extremities [R20.2] 08/02/2022 Prescriptions ordered this encounter Disp Refills Start End BENZONATATE 100 MG CAPSULE 30 c* 0 09/08/2023 Route: ORAL Sig: Take 2 capsules by mouth three times a day as needed. Letter Text Encounter Status:Closed by JOO LEGER on 09/08/23 PROGRESS Observed: 08/14/2023 9:07 AM Status: COMPLETED Source: [facility] O ID: [id number] Author: Shirlene Carlos APRN.[facility] Service: ? Author Type: Nurse Practitioner Type: Progress Notes Filed: 08/14/2023 9:08 AM Note Text: Subjective HPI HPI Nasrin Talley is a 43 year old female who presents today for CC of cough, sinus pain, congestion, sob, wheezing. This started 1 week ago . Has tried otc medication and asthma medication. Symptoms are worsened by nothing. 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 Hx of asthma. Nonsmoker. Denies possibility of being . Negative covid test last week. .Patient presents with: Cough: Sinus pressure, congestion, SOB headache x 1 week PAST MEDICAL HISTORY Diagnosis Date Asthma Cholecystitis with cholelithiasis Colitis GERD (gastroesophageal reflux disease) PCOS (polycystic ovarian syndrome) Rectal bleeding Umbilical hernia PAST SURGICAL HISTORY Procedure Laterality Date CHOLECYSTECTOMY HX COLONOSCOPY 02/19/2018 Dr. Joel Barbour, [facility] PAST SURGICAL HISTORY OF PAST SURGICAL HISTORY OF adeniods/tonsillectomy ALLERGIES Patient has no known allergies. MEDICATIONS hydrOXYzine pamoate (VISTARIL) 25 mg capsule Take 1 capsule by mouth three times daily as needed for anxiety. sertraline (ZOLOFT) 100 mg tablet Take 1 tablet by mouth once daily. albuterol HFA (VENTOLIN HFA) 90 mcg/actuation inhaler Inhale 2 Puffs as instructed every 4 hours as needed for wheezing/shortness of breath. phenazopyridine (PYRIDIUM) 200 mg tablet Take 1 tablet by mouth three times daily as needed. pantoprazole DR (PROTONIX) 40 mg tablet Take 40 mg by mouth once daily. ondansetron (ZOFRAN) 4 mg tablet Take 1 tablet by mouth every 8 hours as needed. predniSONE (DELTASONE) 10 mg tablet Take 4 tabs daily for 3 days, then 2 tabs daily for 3 days, then 1 tab daily for 3 days with food. amoxicillin-clavulanate potassium (AUGMENTIN) 875-125 mg per tablet Take 1 tablet by mouth two times a day for 7 days. FAMILY HISTORY Problem Relation Age of Onset Allergies Father Allergies Son Asthma Son 2 sons have Cancer Maternal Grandfather Breast Cancer Paternal Grandfather lung Cancer Paternal Grandfather Social History Tobacco Use Smoking status: Never Smokeless tobacco: Never Vaping Use Vaping Use: Never used Substance Use Topics Alcohol use: No Drug use: No Review of Systems Constitutional: Negative for fever. HENT: Positive for congestion and sinus pain. Negative for ear pain, nosebleeds and sore throat. Respiratory: Positive for cough, shortness of breath and wheezing. Cardiovascular: Negative for chest pain. Musculoskeletal: Negative for neck pain. Skin: Negative for itching and rash. Neurological: Positive for headaches. Objective Blood pressure 111/78, pulse 81, temperature 37.1 ?C (98.8 ?F), resp. rate 18, weight 103.9 kg (229 lb), last menstrual period 07/12/2022, SpO2 99 %. Physical Exam Constitutional: General: She is not in acute distress. Appearance: She is not toxic-appearing or diaphoretic. HENT: Head: Normocephalic and atraumatic. Nose: Right Sinus: Frontal sinus tenderness present. Cardiovascular: Rate and Rhythm: Normal rate and regular rhythm. Heart sounds: Normal heart sounds, S1 normal and S2 normal. Pulmonary: Effort: Pulmonary effort is normal. Breath sounds: Wheezing (fine, scattered bilat.) present. No decreased breath sounds, rhonchi or rales. Lymphadenopathy: Cervical: No cervical adenopathy. Right cervical: No superficial cervical adenopathy. Left cervical: No superficial cervical adenopathy. Neurological: Mental Status: She is alert and oriented to person, place, and time. Gait: Gait is intact. ASSESSMENT/PLAN: 1. Sinobronchitis - ICD9: 473.9, 490, ICD10: J32.9, J40 - Will begin treatment with as per antibiotic as written, see orders - Supportive care with plenty of fluids, rest, and analgesia prn. - Follow up in 3-5 days if symptoms persist or worsen. -If you experience chest pain/shortness of breath go to ER - PREDNISONE 10 MG TABLET - AMOXICILLIN 875 MG-POTASSIUM CLAVULANATE 125 MG TABLET Shirlene Carlos APRN.CNP CNOV Observed: 08/14/2023 9:00 AM Status: COMPLETED Source: [facility] Office Visit (WSTR) NASRIN TALLEY ([id number]) 1980 F Date Time Provider Department 08/14/23 9:00 AM [facility] During your visit today, we recorded the following information about you: Temperature Pulse Respiration Blood pressure 98.8 degrees 81/minute 18/minute 111/78 Weight 103.9 kg Shirlene Carlos APRN.CNP 08/14/2023 9:08 AM Signed Subjective HPI HPI Nasrin Talley is a 43 year old female who presents today for CC of cough, sinus pain, congestion, sob, wheezing. This started 1 week ago . Has tried otc medication and asthma medication. Symptoms are worsened by nothing. 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 Hx of asthma. Nonsmoker. Denies possibility of being . Negative covid test last week. .Patient presents with: Cough: Sinus pressure, congestion, SOB headache x 1 week PAST MEDICAL HISTORY Diagnosis Date Asthma Cholecystitis with cholelithiasis Colitis GERD (gastroesophageal reflux disease) PCOS (polycystic ovarian syndrome) Rectal bleeding Umbilical hernia PAST SURGICAL HISTORY Procedure Laterality Date CHOLECYSTECTOMY HX COLONOSCOPY 02/19/2018 Dr. Joel Barbour, [facility] PAST SURGICAL HISTORY OF PAST SURGICAL HISTORY OF adeniods/tonsillectomy ALLERGIES Patient has no known allergies. MEDICATIONS hydrOXYzine pamoate (VISTARIL) 25 mg capsule Take 1 capsule by mouth three times daily as needed for anxiety. sertraline (ZOLOFT) 100 mg tablet Take 1 tablet by mouth once daily. albuterol HFA (VENTOLIN HFA) 90 mcg/actuation inhaler Inhale 2 Puffs as instructed every 4 hours as needed for wheezing/shortness of breath. phenazopyridine (PYRIDIUM) 200 mg tablet Take 1 tablet by mouth three times daily as needed. pantoprazole DR (PROTONIX) 40 mg tablet Take 40 mg by mouth once daily. ondansetron (ZOFRAN) 4 mg tablet Take 1 tablet by mouth every 8 hours as needed. predniSONE (DELTASONE) 10 mg tablet Take 4 tabs daily for 3 days, then 2 tabs daily for 3 days, then 1 tab daily for 3 days with food. amoxicillin-clavulanate potassium (AUGMENTIN) 875-125 mg per tablet Take 1 tablet by mouth two times a day for 7 days. FAMILY HISTORY Problem Relation Age of Onset Allergies Father Allergies Son Asthma Son 2 sons have Cancer Maternal Grandfather Breast Cancer Paternal Grandfather lung Cancer Paternal Grandfather Social History Tobacco Use Smoking status: Never Smokeless tobacco: Never Vaping Use Vaping Use: Never used Substance Use Topics Alcohol use: No Drug use: No Review of Systems Constitutional: Negative for fever. HENT: Positive for congestion and sinus pain. Negative for ear pain, nosebleeds and sore throat. Respiratory: Positive for cough, shortness of breath and wheezing. Cardiovascular: Negative for chest pain. Musculoskeletal: Negative for neck pain. Skin: Negative for itching and rash. Neurological: Positive for headaches. Objective Blood pressure 111/78, pulse 81, temperature 37.1 ?C (98.8 ?F), resp. rate 18, weight 103.9 kg (229 lb), last menstrual period 07/12/2022, SpO2 99 %. Physical Exam Constitutional: General: She is not in acute distress. Appearance: She is not toxic-appearing or diaphoretic. HENT: Head: Normocephalic and atraumatic. Nose: Right Sinus: Frontal sinus tenderness present. Cardiovascular: Rate and Rhythm: Normal rate and regular rhythm. Heart sounds: Normal heart sounds, S1 normal and S2 normal. Pulmonary: Effort: Pulmonary effort is normal. Breath sounds: Wheezing (fine, scattered bilat.) present. No decreased breath sounds, rhonchi or rales. Lymphadenopathy: Cervical: No cervical adenopathy. Right cervical: No superficial cervical adenopathy. Left cervical: No superficial cervical adenopathy. Neurological: Mental Status: She is alert and oriented to person, place, and time. Gait: Gait is intact. ASSESSMENT/PLAN: 1. Sinobronchitis - ICD9: 473.9, 490, ICD10: J32.9, J40 - Will begin treatment with as per antibiotic as written, see orders - Supportive care with plenty of fluids, rest, and analgesia prn. - Follow up in 3-5 days if symptoms persist or worsen. -If you experience chest pain/shortness of breath go to ER - PREDNISONE 10 MG TABLET - AMOXICILLIN 875 MG-POTASSIUM CLAVULANATE 125 MG TABLET Shirlene Carlos APRN.LEGAL ENTITY CONTROLLER Allergies As of Date: 08/14/2023 (No Known Allergies) Date Reviewed: 08/14/2023 Reviewed by: Shirlene Carlos APRN.LEGAL ENTITY CONTROLLER - Fully Assessed Reason for Visit: Cough [28] Cmt: Sinus pressure, congestion, SOB headache x 1 week Primary Visit Diagnosis:Sinobronchitis [J32.9, J40] Order(s):predniSONE (DELTASONE) 10 mg tabletTake 4 tabs daily for 3 days, then 2 tabs daily for 3 days, then 1 tab daily for 3 days with food.Disp: 21 tabletRfl: 0 amoxicillin-clavulanate potassium (AUGMENTIN) 875-125 mg per tabletTake 1 tablet by mouth two times a day for 7 days.Disp: 14 tabletRfl: 0 Prescriptions as of 08/14/2023 - predniSONE (DELTASONE) 10 mg tablet Take 4 tabs daily for 3 days, then 2 tabs daily for 3 days, then 1 tab daily for 3 days with food. - amoxicillin-clavulanate potassium (AUGMENTIN) 875-125 mg per tablet Take 1 tablet by mouth two times a day for 7 days. - hydrOXYzine pamoate (VISTARIL) 25 mg capsule Take 1 capsule by mouth three times daily as needed for anxiety. - sertraline (ZOLOFT) 100 mg tablet Take 1 tablet by mouth once daily. - albuterol HFA (VENTOLIN HFA) 90 mcg/actuation inhaler Inhale 2 Puffs as instructed every 4 hours as needed for wheezing/shortness of breath. - phenazopyridine (PYRIDIUM) 200 mg tablet Take 1 tablet by mouth three times daily as needed. - pantoprazole DR (PROTONIX) 40 mg tablet Take 40 mg by mouth once daily. - ondansetron (ZOFRAN) 4 mg tablet Take 1 tablet by mouth every 8 hours as needed. Meds Comments as of 07/07/2020: Drug Allen Mehran ND Problem List As Of Date 08/14/2023 Noted Resolved Obesity, Class II, BMI 35-39.9 [E66.9] 10/01/2021 Tingling of both upper extremities [R20.2] 08/02/2022 Prescriptions ordered this encounter Disp Refills Start End PREDNISONE 10 MG TABLET 21 t* 0 08/14/2023 08/23/2023 Sig: Take 4 tabs daily for 3 days, then 2 tabs daily for 3 days, then 1 tab daily for 3 days with food. AMOXICILLIN 875 MG-POTASSIUM CLAVULA* 14 t* 0 08/14/2023 08/21/2023 Route: ORAL Sig: Take 1 tablet by mouth two times a day for 7 days. Letter Text Encounter Status:Closed by SHIRLENE CARLOS on 08/14/23 ROBERT Observed: 07/23/2023 12:00 AM Status: COMPLETED Source: [facility] Patient Outreach (INTMMN) NASRIN TALLEY ([id number]) 1980 F Date Time Provider Department 07/23/23 ANGEL COTTON During your visit today, we recorded the following information about you: Allergies As of Date: 07/23/2023 (No Known Allergies) Date Reviewed: 05/10/2023 Reviewed by: Sanjuana Pena LPN - Fully Assessed Visit Diagnosis:Encounter for screening mammogram for breast cancer [Z12.31] Order(s):[facility] SCREENING [[id number]] Order #: [id number] FUTURE Prescriptions as of 07/28/2023 - hydrOXYzine pamoate (VISTARIL) 25 mg capsule Take 1 capsule by mouth three times daily as needed for anxiety. - sertraline (ZOLOFT) 100 mg tablet Take 1 tablet by mouth once daily. - albuterol HFA (VENTOLIN HFA) 90 mcg/actuation inhaler Inhale 2 Puffs as instructed every 4 hours as needed for wheezing/shortness of breath. - phenazopyridine (PYRIDIUM) 200 mg tablet Take 1 tablet by mouth three times daily as needed. - pantoprazole DR (PROTONIX) 40 mg tablet Take 40 mg by mouth once daily. - ondansetron (ZOFRAN) 4 mg tablet Take 1 tablet by mouth every 8 hours as needed. Meds Comments as of 07/07/2020: Drug Allen RONALD Laurent Problem List As Of Date 07/23/2023 Noted Resolved Obesity, Class II, BMI 35-39.9 [E66.9] 10/01/2021 Tingling of both upper extremities [R20.2] 08/02/2022 Encounter Status:Closed by REENA WILCOX on 07/28/23 TEODORA Observed: 06/05/2023 1:20 PM Status: COMPLETED Source: [facility] Office Visit (FAMPWS) NASRIN TALLEY ([id number]) 1980 F Date Time Provider Department 06/05/23 1:20 PM AGNEL COTTON During your visit today, we recorded the following information about you: Pulse Respiration Blood pressure Weight 98/minute 16/minute 130/78 100.9 kg Height 1.676 m Angel Cotton MD 06/05/2023 2:30 PM Signed Chief Complaint Patient presents with: Physical HPI Nasrin Talley is a 42 year old female who presents here today for medication follow up. 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 Has a form for work she needs completed. No TB test needed. Has an 8 year old and a 14 year old with OCD, anxiety and ADD/ADHD issues, they are medicated. Two other children also. She follows with a COMPUTATIONAL THEORY SCIENTIST who orders her Mammograms. She gets these done at [facility]. No bowel, Gi, or urinary issues. No chest pains, dizziness, or SOB. GERD: Sx stable with Protonix 40 mg daily. Uses Zofran prn . LADARIUS: has had increased anxiety and trouble with focus and concentration. Is taking Cymbalta 60 mg and 30 mg daily. She follows with Shreya Hurt at [place] for counseling every 3 months or how she is doing. Pt does not feel that the anxiety and focus are as controlled with medication as they have been in the past. Denies being on any other mediations for this before. Denies feeling depressed. She feels she is getting stuck on something and is fixed on it excessively. She has stress or fear that something his going to go wrong. She stated she had to isolate herself for a few days to get herself calmed down. She states she is familiar with Hydroxyzine, that both her kids have been on it. She states 6 out of 7 days she has had anxiety. She states it has been that most of the summer. She has trouble falling asleep. She has been getting chest pains off and on which she thinks is due to her anxiety. No dizziness or SOB with it. No sx during exertion. Tries to watch diet and walks some for exercise most days. Past medical history, appointments, medications, allergies reviewed. Previous Medical History PAST MEDICAL HISTORY Diagnosis Date Asthma Cholecystitis with cholelithiasis Colitis GERD (gastroesophageal reflux disease) PCOS (polycystic ovarian syndrome) Rectal bleeding Umbilical hernia Previous Surgical History PAST SURGICAL HISTORY Procedure Laterality Date CHOLECYSTECTOMY HX COLONOSCOPY 02/19/2018 Dr. Joel Barbour, [facility] PAST SURGICAL HISTORY OF PAST SURGICAL HISTORY OF adeniods/tonsillectomy Family History FAMILY HISTORY Problem Relation Age of Onset Allergies Father Allergies Son Asthma Son 2 sons have Cancer Maternal Grandfather Breast Cancer Paternal Grandfather lung Cancer Paternal Grandfather Patient Allergies ALLERGIES No Known Allergies Current Medications Current Outpatient Medications on File Prior to Visit Medication Sig albuterol HFA (VENTOLIN HFA) 90 mcg/actuation inhaler Inhale 2 Puffs as instructed every 4 hours as needed for wheezing/shortness of breath. phenazopyridine (PYRIDIUM) 200 mg tablet Take 1 tablet by mouth three times daily as needed. (Patient not taking: Reported on 05/10/2023) DULoxetine (CYMBALTA) 60 mg capsule Take 1 capsule by mouth once daily. Take along with 30 mg dose for a total of 90 mg daily DULoxetine (CYMBALTA) 30 mg capsule Take 1 capsule by mouth once daily. Take along with 60 mg dose for a total of [address] (PROTONIX) 40 mg tablet Take 40 mg by mouth once daily. ondansetron (ZOFRAN) 4 mg tablet Take 1 tablet by mouth every 8 hours as needed. No current facility-administered medications on file prior to visit. Social History Social History Tobacco Use Smoking status: Never Smokeless tobacco: Never Vaping Use Vaping Use: Never used Substance Use Topics Alcohol use: No Drug use: No EXAM: BP 130/78 Pulse 98 Resp 16 Ht 167.6 cm (5' 6 ) Wt 100.9 kg (222 lb 6.4 oz) LMP 07/12/2022 (Approximate) BMI 35.90 kg/m? General Appearance: Well appearing, alert, in no acute distress, well-hydrated, well nourished.. Lungs: Lungs clear to auscultation. No wheezing, rhonchi, rales.. Heart: RRR without murmur, gallop, or rubs. No ectopy. Health Maintenance List HEPATITIS B(1 of 3 - 3-dose series) Never done HEPATITIS C SCREENING Never done HIV SCREENING Never done MAMMOGRAM due on 06/14/2023 INFLUENZA(1) due on 06/20/2023 PAP TESTING due on 04/11/2027 HPV TESTING due on 04/11/2027 DTAP,TDAP,TD(2 - Td or Tdap) due on 07/25/2030 DEPRESSION ASSESSMENT Completed COVID-19 VACCINE Completed HPV VACCINE Aged Out Data reviewed None Brought in physical form that needs signed by provider. ASSESSMENT/PLAN: 1. Wellness examination - ICD9: V70.0, ICD10: Z00.00 (primary diagnosis) - Counseled on healthy diet and regular exercise - Calcium intake with supplements or by diet of 1000 mg/day for under 50, 0929-5381 mg/day for 50+ - Discussed need and benefit for weight loss. BMI 35.90 kg/(m2) - Follow up for annual exam in one year 2. LADARIUS (generalized anxiety disorder) - ICD9: 300.02, ICD10: F41.1 Stop Cymbalta 30 mg and 60 mg Start Zoloft 100 mg daily Add Vistaril 25 mg TID prn 3. Poor concentration - ICD9: 799.51, ICD10: R41.840 See if this improves with medication Stop Cymbalta 30 mg and 60 mg Start Zoloft 100 mg daily Add Vistaril 25 mg TID prn 4. Sleeping difficulty - ICD9: 780.50, ICD10: G47.9 See if this improves with medication Stop Cymbalta 30 mg and 60 mg Start Zoloft 100 mg daily Add Vistaril 25 mg TID prn Follow up in 3 months. I agree with the Chief Complaint, ROS, and Past Histories independently gathered by the clinical manager sales support and the remaining scribed note accurately describes my personal service to the patient. Angel Cotton MD The documentation for this note was completed by Linda Bassett Ma acting as scribe for Angel Cotton MD. June 05, 2023 1:25 PM. Linda Nevarez Ma, Ma 06/05/2023 1:45 PM Signed Stop the Cymbalta. Start Zoloft 100 mg daily. Can uses the Hydroxyzine 25 mg 1 pill three times a day or less as needed. Notify office if any problems or no improvement with this medication change. Allergies As of Date: 06/05/2023 (No Known Allergies) Date Reviewed: 05/10/2023 Reviewed by: Sanjuana Pena LPN - Fully Assessed Reason for Visit: Physical [83] Primary Visit Diagnosis:Wellness examination [Z00.00] Other Visit Diagnoses:LADARIUS (generalized anxiety disorder) [F41.1] Poor concentration [R41.840] Sleeping difficulty [G47.9] Order(s):hydrOXYzine pamoate (VISTARIL) 25 mg capsuleTake 1 capsule by mouth three times daily as needed for anxiety.Disp: 30 capsuleRfl: 5 sertraline (ZOLOFT) 100 mg tabletTake 1 tablet by mouth once daily.Disp: 30 tabletRfl: 5 Prescriptions as of 06/05/2023 - hydrOXYzine pamoate (VISTARIL) 25 mg capsule Take 1 capsule by mouth three times daily as needed for anxiety. - sertraline (ZOLOFT) 100 mg tablet Take 1 tablet by mouth once daily. - albuterol HFA (VENTOLIN HFA) 90 mcg/actuation inhaler Inhale 2 Puffs as instructed every 4 hours as needed for wheezing/shortness of breath. - phenazopyridine (PYRIDIUM) 200 mg tablet Take 1 tablet by mouth three times daily as needed. - pantoprazole DR (PROTONIX) 40 mg tablet Take 40 mg by mouth once daily. - ondansetron (ZOFRAN) 4 mg tablet Take 1 tablet by mouth every 8 hours as needed. Meds Comments as of 07/07/2020: Drug Allen RONALD Laurent Problem List As Of Date 06/05/2023 Noted Resolved Obesity, Class II, BMI 35-39.9 [E66.9] 10/01/2021 Tingling of both upper extremities [R20.2] 08/02/2022 Other instructions from your clinician: Stop the Cymbalta. Start Zoloft 100 mg daily. Can uses the Hydroxyzine 25 mg 1 pill three times a day or less as needed. Notify office if any problems or no improvement with this medication change. Prescriptions ordered this encounter Disp Refills Start End HYDROXYZINE PAMOATE 25 MG CAPSULE 30 c* 5 06/05/2023 Route: ORAL Sig: Take 1 capsule by mouth three times daily as needed for anxiety. SERTRALINE 100 MG TABLET 30 t* 5 06/05/2023 Route: ORAL Sig: Take 1 tablet by mouth once daily. Medications Discontinued During This Encounter Prescriptions - DULoxetine (CYMBALTA) 30 mg capsule (Discontinued) Take 1 capsule by mouth once daily. Take along with 60 mg dose for a total of 90 mg daily - DULoxetine (CYMBALTA) 60 mg capsule (Discontinued) Take 1 capsule by mouth once daily. Take along with 30 mg dose for a total of 90 mg daily Disposition: Return in about 3 months (around 09/05/2023). Follow-up and Disposition History for Encounter Date Provider Department Center 06/05/2023 [id number] COTTON [facility] Encounter Status:Closed by ANGEL COTTON on 06/05/23 PROGRESS Observed: 06/05/2023 1:20 PM Status: COMPLETED Source: [facility] O ID: [id number] Author: nAgel Cotton MD Service: ? Author Type: Physician Type: Progress Notes Filed: 06/05/2023 2:30 PM Note Text: Chief Complaint Patient presents with: Physical HPI Nasrin Talley is a 42 year old female who presents here today for medication follow up. 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 Has a form for work she needs completed. No TB test needed. Has an 8 year old and a 14 year old with OCD, anxiety and ADD/ADHD issues, they are medicated. Two other children also. She follows with a COMPUTATIONAL THEORY SCIENTIST who orders her Mammograms. She gets these done at [facility]. No bowel, Gi, or urinary issues. No chest pains, dizziness, or SOB. GERD: Sx stable with Protonix 40 mg daily. Uses Zofran prn . LADARIUS: has had increased anxiety and trouble with focus and concentration. Is taking Cymbalta 60 mg and 30 mg daily. She follows with Shreya Hurt at [place] for counseling every 3 months or how she is doing. Pt does not feel that the anxiety and focus are as controlled with medication as they have been in the past. Denies being on any other mediations for this before. Denies feeling depressed. She feels she is getting stuck on something and is fixed on it excessively. She has stress or fear that something his going to go wrong. She stated she had to isolate herself for a few days to get herself calmed down. She states she is familiar with Hydroxyzine, that both her kids have been on it. She states 6 out of 7 days she has had anxiety. She states it has been that most of the summer. She has trouble falling asleep. She has been getting chest pains off and on which she thinks is due to her anxiety. No dizziness or SOB with it. No sx during exertion. Tries to watch diet and walks some for exercise most days. Past medical history, appointments, medications, allergies reviewed. Previous Medical History PAST MEDICAL HISTORY Diagnosis Date Asthma Cholecystitis with cholelithiasis Colitis GERD (gastroesophageal reflux disease) PCOS (polycystic ovarian syndrome) Rectal bleeding Umbilical hernia Previous Surgical History PAST SURGICAL HISTORY Procedure Laterality Date CHOLECYSTECTOMY HX COLONOSCOPY 02/19/2018 Dr. Joel Barbour, [facility] PAST SURGICAL HISTORY OF PAST SURGICAL HISTORY OF adeniods/tonsillectomy Family History FAMILY HISTORY Problem Relation Age of Onset Allergies Father Allergies Son Asthma Son 2 sons have Cancer Maternal Grandfather Breast Cancer Paternal Grandfather lung Cancer Paternal Grandfather Patient Allergies ALLERGIES No Known Allergies Current Medications Current Outpatient Medications on File Prior to Visit Medication Sig albuterol HFA (VENTOLIN HFA) 90 mcg/actuation inhaler Inhale 2 Puffs as instructed every 4 hours as needed for wheezing/shortness of breath. phenazopyridine (PYRIDIUM) 200 mg tablet Take 1 tablet by mouth three times daily as needed. (Patient not taking: Reported on 05/10/2023) DULoxetine (CYMBALTA) 60 mg capsule Take 1 capsule by mouth once daily. Take along with 30 mg dose for a total of 90 mg daily DULoxetine (CYMBALTA) 30 mg capsule Take 1 capsule by mouth once daily. Take along with 60 mg dose for a total of [address] (PROTONIX) 40 mg tablet Take 40 mg by mouth once daily. ondansetron (ZOFRAN) 4 mg tablet Take 1 tablet by mouth every 8 hours as needed. No current facility-administered medications on file prior to visit. Social History Social History Tobacco Use Smoking status: Never Smokeless tobacco: Never Vaping Use Vaping Use: Never used Substance Use Topics Alcohol use: No Drug use: No EXAM: BP 130/78 Pulse 98 Resp 16 Ht 167.6 cm (5' 6 ) Wt 100.9 kg (222 lb 6.4 oz) LMP 07/12/2022 (Approximate) BMI 35.90 kg/m? General Appearance: Well appearing, alert, in no acute distress, well-hydrated, well nourished.. Lungs: Lungs clear to auscultation. No wheezing, rhonchi, rales.. Heart: RRR without murmur, gallop, or rubs. No ectopy. Health Maintenance List HEPATITIS B(1 of 3 - 3-dose series) Never done HEPATITIS C SCREENING Never done HIV SCREENING Never done MAMMOGRAM due on 06/14/2023 INFLUENZA(1) due on 06/20/2023 PAP TESTING due on 04/11/2027 HPV TESTING due on 04/11/2027 DTAP,TDAP,TD(2 - Td or Tdap) due on 07/25/2030 DEPRESSION ASSESSMENT Completed COVID-19 VACCINE Completed HPV VACCINE Aged Out Data reviewed None Brought in physical form that needs signed by provider. ASSESSMENT/PLAN: 1. Wellness examination - ICD9: V70.0, ICD10: Z00.00 (primary diagnosis) - Counseled on healthy diet and regular exercise - Calcium intake with supplements or by diet of 1000 mg/day for under 50, 6021-7973 mg/day for 50+ - Discussed need and benefit for weight loss. BMI 35.90 kg/(m2) - Follow up for annual exam in one year 2. LADARIUS (generalized anxiety disorder) - ICD9: 300.02, ICD10: F41.1 Stop Cymbalta 30 mg and 60 mg Start Zoloft 100 mg daily Add Vistaril 25 mg TID prn 3. Poor concentration - ICD9: 799.51, ICD10: R41.840 See if this improves with medication Stop Cymbalta 30 mg and 60 mg Start Zoloft 100 mg daily Add Vistaril 25 mg TID prn 4. Sleeping difficulty - ICD9: 780.50, ICD10: G47.9 See if this improves with medication Stop Cymbalta 30 mg and 60 mg Start Zoloft 100 mg daily Add Vistaril 25 mg TID prn Follow up in 3 months. I agree with the Chief Complaint, ROS, and Past Histories independently gathered by the clinical manager sales support and the remaining scribed note accurately describes my personal service to the patient. Angel Cotton MD The documentation for this note was completed by Linda Bassett Ma acting as scribe for Angel Cotton MD. June 05, 2023 1:25 PM. Linda Bassett Ma PROGRESS Observed: 05/10/2023 12:53 PM Status: COMPLETED Source: [facility] HNO ID: [id number] Author: Sean Zazueta MD Service: ? Author Type: Physician Type: Progress Notes Filed: 05/10/2023 1:04 PM Note Text: Patient presents with: Pain, Throat: Pt reproted + strep exposure, throat pain, x1 day. HPI: Feeling sick for 1 day. Her son tested positive for strep yesterday. Positive symptoms: Sore throat, Fever, Body Aches, Malaise, Negative symptoms: Cough, Earache, Nasal Congestion, Rhinorrhea, Vomiting, Diarrhea, OTC: none MEDICATIONS: Current Outpatient Medications Medication Sig albuterol HFA (VENTOLIN HFA) 90 mcg/actuation inhaler Inhale 2 Puffs as instructed every 4 hours as needed for wheezing/shortness of breath. DULoxetine (CYMBALTA) 60 mg capsule Take 1 capsule by mouth once daily. Take along with 30 mg dose for a total of 90 mg daily DULoxetine (CYMBALTA) 30 mg capsule Take 1 capsule by mouth once daily. Take along with 60 mg dose for a total of [address] (PROTONIX) 40 mg tablet Take 40 mg by mouth once daily. amoxicillin (AMOXIL) 500 mg capsule Take 1 capsule by mouth twice daily for 10 days. phenazopyridine (PYRIDIUM) 200 mg tablet Take 1 tablet by mouth three times daily as needed. (Patient not taking: Reported on 05/10/2023) ondansetron (ZOFRAN) 4 mg tablet Take 1 tablet by mouth every 8 hours as needed. No current facility-administered medications for this visit. ALLERGIES: ALLERGIES No Known Allergies VITALS: BP 128/84 Pulse (!) 126 Temp 36.6 ?C (97.9 ?F) (Temporal) Resp 18 Wt 96.3 kg (212 lb 6.4 oz) LMP 07/12/2022 (Approximate) SpO2 99% BMI 34.81 kg/m? PHYSICAL EXAM: GEN: mildly ill appearing HEENT: PERRL, EOMI, conjunctiva clear Ears: LTM without erythema, bulge, or effusion. Right canal occluded by cerumen. Sinuses: non-tender frontal sinus, non-tender maxillary sinuses Throat: Perspiration below N95 mask. Moist mucous membranes, pharyngeal erythema, no exudate Neck: supple, no thyromegaly, no lymphadenopathy HEART: regular rate and rhythm, no murmurs LUNGS: clear to auscultation, no wheezes or crackles, no increased WOB ASSESSMENT/PLAN: 1. Streptococcal pharyngitis - ICD9: 034.0, ICD10: J02.0 (primary diagnosis) 2. Sore throat - ICD9: 462, ICD10: J02.9 - Alere Strep Test positive - supportive care treatment with as needed analgesia. - STREP A MOLECULAR (POC) - AMOXICILLIN 500 MG CAPSULE Sean Zazueta MD CNOV Observed: 05/10/2023 12:45 PM Status: COMPLETED Source: [facility] RE[facility] Office Visit ([facility]) NASRIN TALLEY ([id number]) 1980 F Date Time Provider Department 05/10/23 12:45 PM SEAN ZAZUETA [facility] During your visit today, we recorded the following information about you: Temperature Pulse Respiration Blood pressure 97.9 degrees 126/minute 18/minute 128/84 Weight 96.3 kg Sean Zazueta MD 05/10/2023 1:04 PM Signed Patient presents with: Pain, Throat: Pt reproted + strep exposure, throat pain, x1 day. HPI: Feeling sick for 1 day. Her son tested positive for strep yesterday. Positive symptoms: Sore throat, Fever, Body Aches, Malaise, Negative symptoms: Cough, Earache, Nasal Congestion, Rhinorrhea, Vomiting, Diarrhea, OTC: none MEDICATIONS: Current Outpatient Medications Medication Sig albuterol HFA (VENTOLIN HFA) 90 mcg/actuation inhaler Inhale 2 Puffs as instructed every 4 hours as needed for wheezing/shortness of breath. DULoxetine (CYMBALTA) 60 mg capsule Take 1 capsule by mouth once daily. Take along with 30 mg dose for a total of 90 mg daily DULoxetine (CYMBALTA) 30 mg capsule Take 1 capsule by mouth once daily. Take along with 60 mg dose for a total of [address] (PROTONIX) 40 mg tablet Take 40 mg by mouth once daily. amoxicillin (AMOXIL) 500 mg capsule Take 1 capsule by mouth twice daily for 10 days. phenazopyridine (PYRIDIUM) 200 mg tablet Take 1 tablet by mouth three times daily as needed. (Patient not taking: Reported on 05/10/2023) ondansetron (ZOFRAN) 4 mg tablet Take 1 tablet by mouth every 8 hours as needed. No current facility-administered medications for this visit. ALLERGIES: ALLERGIES No Known Allergies VITALS: BP 128/84 Pulse (!) 126 Temp 36.6 ?C (97.9 ?F) (Temporal) Resp 18 Wt 96.3 kg (212 lb 6.4 oz) LMP 07/12/2022 (Approximate) SpO2 99% BMI 34.81 kg/m? PHYSICAL EXAM: GEN: mildly ill appearing HEENT: PERRL, EOMI, conjunctiva clear Ears: LTM without erythema, bulge, or effusion. Right canal occluded by cerumen. Sinuses: non-tender frontal sinus, non-tender maxillary sinuses Throat: Perspiration below N95 mask. Moist mucous membranes, pharyngeal erythema, no exudate Neck: supple, no thyromegaly, no lymphadenopathy HEART: regular rate and rhythm, no murmurs LUNGS: clear to auscultation, no wheezes or crackles, no increased WOB ASSESSMENT/PLAN: 1. Streptococcal pharyngitis - ICD9: 034.0, ICD10: J02.0 (primary diagnosis) 2. Sore throat - ICD9: 462, ICD10: J02.9 - Alere Strep Test positive - supportive care treatment with as needed analgesia. - STREP A MOLECULAR (POC) - AMOXICILLIN 500 MG CAPSULE Sean Zazueta MD Allergies As of Date: 05/10/2023 (No Known Allergies) Date Reviewed: 05/10/2023 Reviewed by: Sanjuana Pena LPN - Fully Assessed Reason for Visit: Pain, Throat [856] Cmt: Pt reproted + strep exposure, throat pain, x1 day. Primary Visit Diagnosis:Streptococcal pharyngitis [J02.0] Other Visit Diagnosis:Sore throat [J02.9] Order(s):STREP A MOLECULAR (POC) [[id number]] Order #: [id number]. #:[id number] amoxicillin (AMOXIL) 500 mg capsuleTake 1 capsule by mouth twice daily for 10 days.Disp: 20 capsuleRfl: 0 Prescriptions as of 05/10/2023 - amoxicillin (AMOXIL) 500 mg capsule Take 1 capsule by mouth twice daily for 10 days. - albuterol HFA (VENTOLIN HFA) 90 mcg/actuation inhaler Inhale 2 Puffs as instructed every 4 hours as needed for wheezing/shortness of breath. - phenazopyridine (PYRIDIUM) 200 mg tablet Take 1 tablet by mouth three times daily as needed. - DULoxetine (CYMBALTA) 60 mg capsule Take 1 capsule by mouth once daily. Take along with 30 mg dose for a total of 90 mg daily - DULoxetine (CYMBALTA) 30 mg capsule Take 1 capsule by mouth once daily. Take along with 60 mg dose for a total of 90 mg daily - pantoprazole DR (PROTONIX) 40 mg tablet Take 40 mg by mouth once daily. - ondansetron (ZOFRAN) 4 mg tablet Take 1 tablet by mouth every 8 hours as needed. Meds Comments as of 07/07/2020: Drug Allen Mehran, [place] Problem List As Of Date 05/10/2023 Noted Resolved Obesity, Class II, BMI 35-39.9 [E66.9] 10/01/2021 Tingling of both upper extremities [R20.2] 08/02/2022 Prescriptions ordered this encounter Disp Refills Start End AMOXICILLIN 500 MG CAPSULE 20 c* 0 05/10/2023 05/20/2023 Route: ORAL Sig: Take 1 capsule by mouth twice daily for 10 days. Medications Discontinued During This Encounter Prescriptions - predniSONE (DELTASONE) 20 mg tablet (Discontinued) Reported on 05/10/2023 - benzonatate (TESSALON PERLES) 100 mg capsule (Discontinued) Reported on 05/10/2023 - meclizine (ANTIVERT) 25 mg tab (Discontinued) Reported on 05/10/2023 Encounter Status:Closed by SEAN ZAZUETA on 05/10/23 PROGRESS Observed: 03/10/2023 7:40 PM Status: COMPLETED Source: [facility] HNO ID: [id number] Author: Angel Cotton MD Service: ? Author Type: Physician Type: Progress Notes Filed: 03/10/2023 7:50 PM Note Text: Chief Complaint Patient presents with: Dizziness: HPI: This Team Access Model visit is a virtual/phone encounter. It required patient-provider interaction for the medical decision making as documented below. Patient was offered a virtual/telemedicine appointment in lieu of an office visit due to recommendations to reduce patient exposure to COVID-19. Patient is aware of limitations of performing the visit without a face to face visit in the office setting and agrees. I have communicated my name and active licensure. The patient's identity and physical location were verified at the time of this visit. Either the patient or their legal union representative has been informed of the risks and benefits of -- and alternatives to -- treatment through a remote evaluation and consents to proceed with the evaluation remotely. Pt c/o vertigo/motion sickness, headache, feels like she is car sick, dizziness and spinning when turning her head. She has tried Advil for headache. Nausea off and on. Sx started about a week ago but last night symptoms were worse. Controlled by lying still. No sinus symptoms, rhinitis, ear pain, tinnitus, hearing loss. HM: Depression Screening; denies feeling depressed or hopeless. Depression screening tool completed and reviewed. Based on score and interview, patient is not at risk for depression. Screening tool discussed with patient, and I recommended no further intervention at this time Past medical history, appointments, medications, allergies reviewed. Previous Medical History PAST MEDICAL HISTORY Diagnosis Date Asthma Cholecystitis with cholelithiasis Colitis GERD (gastroesophageal reflux disease) PCOS (polycystic ovarian syndrome) Rectal bleeding Umbilical hernia Previous Surgical History PAST SURGICAL HISTORY Procedure Laterality Date CHOLECYSTECTOMY HX COLONOSCOPY 02/19/2018 Dr. Joel Barbour, [facility] PAST SURGICAL HISTORY OF PAST SURGICAL HISTORY OF adeniods/tonsillectomy Family History FAMILY HISTORY Problem Relation Age of Onset Allergies Father Allergies Son Asthma Son 2 sons have Cancer Maternal Grandfather Breast Cancer Paternal Grandfather lung Cancer Paternal Grandfather Patient Allergies ALLERGIES No Known Allergies Current Medications Current Outpatient Medications on File Prior to Visit Medication Sig predniSONE (DELTASONE) 20 mg tablet Take 2 tablets by mouth once daily. (Patient not taking: Reported on 02/18/2023) albuterol HFA (VENTOLIN HFA) 90 mcg/actuation inhaler Inhale 2 Puffs as instructed every 4 hours as needed for wheezing/shortness of breath. phenazopyridine (PYRIDIUM) 200 mg tablet Take 1 tablet by mouth three times daily as needed. (Patient not taking: Reported on 02/18/2023) DULoxetine (CYMBALTA) 60 mg capsule Take 1 capsule by mouth once daily. Take along with 30 mg dose for a total of 90 mg daily DULoxetine (CYMBALTA) 30 mg capsule Take 1 capsule by mouth once daily. Take along with 60 mg dose for a total of 90 mg daily benzonatate (TESSALON PERLES) 100 mg capsule Take 1 capsule by mouth three times daily as needed for cough. (Patient not taking: Reported on 02/18/2023) pantoprazole DR (PROTONIX) 40 mg tablet Take 40 mg by mouth once daily. ondansetron (ZOFRAN) 4 mg tablet Take 1 tablet by mouth every 8 hours as needed. No current facility-administered medications on file prior to visit. Social History Social History Tobacco Use Smoking status: Never Smokeless tobacco: Never Vaping Use Vaping Use: Never used Substance Use Topics Alcohol use: No Drug use: No EXAM: LMP 07/12/2022 (Approximate) Health Maintenance List HEPATITIS B(1 of 3 - 3-dose series) Never done HEPATITIS C SCREENING Never done HIV SCREENING Never done DEPRESSION ASSESSMENT Never done MAMMOGRAM due on 06/14/2023 PAP TESTING due on 04/11/2027 HPV TESTING due on 04/11/2027 DTAP,TDAP,TD(2 - Td or Tdap) due on 07/25/2030 INFLUENZA Completed COVID-19 VACCINE Completed Data reviewed none ASSESSMENT/PLAN: 1. Vertigo - ICD9: 780.4, ICD10: R42 Use meclizine for a few days; if not improving consider PT eval; call if symptoms not improving in 3-5 days - MECLIZINE 25 MG TABLET I agree with the Chief Complaint, ROS, and Past Histories independently gathered by the clinical manager sales support and the remaining scribed note accurately describes my personal service to the patient. Angel Cotton MD The documentation for this note was completed by Linda Bassett Ma acting as scribe for Angel Cotton MD. March 10, 2023 7:26 PM. Linda Bassett Ma PROGRESS Observed: 02/18/2023 7:10 AM Status: COMPLETED Source: [facility] HNO ID: [id number] Author: Stephanie Gan PA-C Service: ? Author Type: Physician Automobile Mechanic Motor Type: Progress Notes Filed: 02/18/2023 7:45 AM Note Text: Chief Complaint Patient presents with: Pain: Left foot HPI Nasrin Talley is a 42 year old female who presents here today for above concerns. Patient states she has had left foot pain for the past 3 days. No known injury. Pain started in the middle of the night. Has taken some OTC advil which helps some. Does have hx of n/t in both feet but never pain quite like this. Past medical history, appointments, medications, allergies reviewed. Previous Medical History PAST MEDICAL HISTORY Diagnosis Date Asthma Cholecystitis with cholelithiasis Colitis GERD (gastroesophageal reflux disease) PCOS (polycystic ovarian syndrome) Rectal bleeding Umbilical hernia Previous Surgical History PAST SURGICAL HISTORY Procedure Laterality Date CHOLECYSTECTOMY HX COLONOSCOPY 02/19/2018 Dr. Joel Barbour, [facility] PAST SURGICAL HISTORY OF PAST SURGICAL HISTORY OF adeniods/tonsillectomy Family History FAMILY HISTORY Problem Relation Age of Onset Allergies Father Allergies Son Asthma Son 2 sons have Cancer Maternal Grandfather Breast Cancer Paternal Grandfather lung Cancer Paternal Grandfather Patient Allergies ALLERGIES No Known Allergies Current Medications Current Outpatient Medications on File Prior to Visit Medication Sig albuterol HFA (VENTOLIN HFA) 90 mcg/actuation inhaler Inhale 2 Puffs as instructed every 4 hours as needed for wheezing/shortness of breath. DULoxetine (CYMBALTA) 60 mg capsule Take 1 capsule by mouth once daily. Take along with 30 mg dose for a total of 90 mg daily DULoxetine (CYMBALTA) 30 mg capsule Take 1 capsule by mouth once daily. Take along with 60 mg dose for a total of [address] (PROTONIX) 40 mg tablet Take 40 mg by mouth once daily. ondansetron (ZOFRAN) 4 mg tablet Take 1 tablet by mouth every 8 hours as needed. predniSONE (DELTASONE) 20 mg tablet Take 2 tablets by mouth once daily. (Patient not taking: Reported on 02/18/2023) phenazopyridine (PYRIDIUM) 200 mg tablet Take 1 tablet by mouth three times daily as needed. (Patient not taking: Reported on 02/18/2023) benzonatate (TESSALON PERLES) 100 mg capsule Take 1 capsule by mouth three times daily as needed for cough. (Patient not taking: Reported on 02/18/2023) No current facility-administered medications on file prior to visit. Social History Social History Tobacco Use Smoking status: Never Smokeless tobacco: Never Vaping Use Vaping Use: Never used Substance Use Topics Alcohol use: No Drug use: No Review of Symptoms REVIEW OF SYSTEMS See hpi EXAM: BP 112/86 (BP Site: Left Arm, BP Position: Sitting, BP Cuff Size: Large Adult) Pulse 90 Temp 36.6 ?C (97.8 ?F) Resp 18 Wt 99.8 kg (220 lb) LMP 07/12/2022 (Approximate) BMI 36.05 kg/m? General Appearance: Well appearing, alert, in no acute distress, well-hydrated, well nourished.. Musculoskeletal: normal appearance. No erythema, bruising or edema noted. Pain to palp of dorsal foot and 1st MTP joint. FROM. Neg jazzy. NVI. Health Maintenance List HEPATITIS B(1 of 3 - 3-dose series) Never done HEPATITIS C SCREENING Never done HIV SCREENING Never done DEPRESSION ASSESSMENT Never done MAMMOGRAM due on 06/14/2023 PAP TESTING due on 04/11/2027 HPV TESTING due on 04/11/2027 DTAP,TDAP,TD(2 - Td or Tdap) due on 07/25/2030 INFLUENZA Completed COVID-19 VACCINE Completed Data reviewed ASSESSMENT/PLAN: 1. Foot pain, right - ICD9: 729.5, ICD10: M79.671 Unclear etiology. Check xray. Less likely gout given presentation. Will have patient RICE and use NSAIDs. Follow up if not improving. - XR FOOT GENERAL 3V AP/LAT/OBL RIGHT Stephanie Gan PA-C CNOV Observed: 02/18/2023 7:00 AM Status: COMPLETED Source: [facility] NASRIN TALLEY ([id number]) 1980 F Date Time Provider Department 02/18/23 7:00 AM STEPHANIE GAN During your visit today, we recorded the following information about you: Temperature Pulse Respiration Blood pressure 97.8 degrees 90/minute 18/minute 112/86 Weight 99.8 kg Stephanie Gan PA-C 02/18/2023 7:45 AM Signed Chief Complaint Patient presents with: Pain: Left foot HPI Nasrin Talley is a 42 year old female who presents here today for above concerns. Patient states she has had left foot pain for the past 3 days. No known injury. Pain started in the middle of the night. Has taken some OTC advil which helps some. Does have hx of n/t in both feet but never pain quite like this. Past medical history, appointments, medications, allergies reviewed. Previous Medical History PAST MEDICAL HISTORY Diagnosis Date Asthma Cholecystitis with cholelithiasis Colitis GERD (gastroesophageal reflux disease) PCOS (polycystic ovarian syndrome) Rectal bleeding Umbilical hernia Previous Surgical History PAST SURGICAL HISTORY Procedure Laterality Date CHOLECYSTECTOMY HX COLONOSCOPY 02/19/2018 Dr. Joel Barbour, [facility] PAST SURGICAL HISTORY OF PAST SURGICAL HISTORY OF adeniods/tonsillectomy Family History FAMILY HISTORY Problem Relation Age of Onset Allergies Father Allergies Son Asthma Son 2 sons have Cancer Maternal Grandfather Breast Cancer Paternal Grandfather lung Cancer Paternal Grandfather Patient Allergies ALLERGIES No Known Allergies Current Medications Current Outpatient Medications on File Prior to Visit Medication Sig albuterol HFA (VENTOLIN HFA) 90 mcg/actuation inhaler Inhale 2 Puffs as instructed every 4 hours as needed for wheezing/shortness of breath. DULoxetine (CYMBALTA) 60 mg capsule Take 1 capsule by mouth once daily. Take along with 30 mg dose for a total of 90 mg daily DULoxetine (CYMBALTA) 30 mg capsule Take 1 capsule by mouth once daily. Take along with 60 mg dose for a total of [address] (PROTONIX) 40 mg tablet Take 40 mg by mouth once daily. ondansetron (ZOFRAN) 4 mg tablet Take 1 tablet by mouth every 8 hours as needed. predniSONE (DELTASONE) 20 mg tablet Take 2 tablets by mouth once daily. (Patient not taking: Reported on 02/18/2023) phenazopyridine (PYRIDIUM) 200 mg tablet Take 1 tablet by mouth three times daily as needed. (Patient not taking: Reported on 02/18/2023) benzonatate (TESSALON PERLES) 100 mg capsule Take 1 capsule by mouth three times daily as needed for cough. (Patient not taking: Reported on 02/18/2023) No current facility-administered medications on file prior to visit. Social History Social History Tobacco Use Smoking status: Never Smokeless tobacco: Never Vaping Use Vaping Use: Never used Substance Use Topics Alcohol use: No Drug use: No Review of Symptoms REVIEW OF SYSTEMS See hpi EXAM: BP 112/86 (BP Site: Left Arm, BP Position: Sitting, BP Cuff Size: Large Adult) Pulse 90 Temp 36.6 ?C (97.8 ?F) Resp 18 Wt 99.8 kg (220 lb) LMP 07/12/2022 (Approximate) BMI 36.05 kg/m? General Appearance: Well appearing, alert, in no acute distress, well-hydrated, well nourished.. Musculoskeletal: normal appearance. No erythema, bruising or edema noted. Pain to palp of dorsal foot and 1st MTP joint. FROM. Neg homacosme. NVI. Health Maintenance List HEPATITIS B(1 of 3 - 3-dose series) Never done HEPATITIS C SCREENING Never done HIV SCREENING Never done DEPRESSION ASSESSMENT Never done MAMMOGRAM due on 06/14/2023 PAP TESTING due on 04/11/2027 HPV TESTING due on 04/11/2027 DTAP,TDAP,TD(2 - Td or Tdap) due on 07/25/2030 INFLUENZA Completed COVID-19 VACCINE Completed Data reviewed ASSESSMENT/PLAN: 1. Foot pain, right - ICD9: 729.5, ICD10: M79.671 Unclear etiology. Check xray. Less likely gout given presentation. Will have patient RICE and use NSAIDs. Follow up if not improving. - XR FOOT GENERAL 3V AP/LAT/OBL RIGHT Stephanie Gan PA-C Allergies As of Date: 02/18/2023 (No Known Allergies) Date Reviewed: 02/18/2023 Reviewed by: Isaias Rodriguez LPN - Fully Assessed Reason for Visit: Pain [78] Cmt: Left foot Primary Visit Diagnosis:Foot pain, right [M79.671] Order(s):XR FOOT GENERAL 3V AP/LAT/OBL RIGHT [[id number]] Order #: [id number] FUTURE Prescriptions as of 02/18/2023 - predniSONE (DELTASONE) 20 mg tablet Take 2 tablets by mouth once daily. - albuterol HFA (VENTOLIN HFA) 90 mcg/actuation inhaler Inhale 2 Puffs as instructed every 4 hours as needed for wheezing/shortness of breath. - phenazopyridine (PYRIDIUM) 200 mg tablet Take 1 tablet by mouth three times daily as needed. - DULoxetine (CYMBALTA) 60 mg capsule Take 1 capsule by mouth once daily. Take along with 30 mg dose for a total of 90 mg daily - DULoxetine (CYMBALTA) 30 mg capsule Take 1 capsule by mouth once daily. Take along with 60 mg dose for a total of 90 mg daily - benzonatate (TESSALON PERLES) 100 mg capsule Take 1 capsule by mouth three times daily as needed for cough. - pantoprazole DR (PROTONIX) 40 mg tablet Take 40 mg by mouth once daily. - ondansetron (ZOFRAN) 4 mg tablet Take 1 tablet by mouth every 8 hours as needed. Meds Comments as of 07/07/2020: Drug Allen RONALD Laurent Problem List As Of Date 02/18/2023 Noted Resolved Obesity, Class II, BMI 35-39.9 [E66.9] 10/01/2021 Tingling of both upper extremities [R20.2] 08/02/2022 Letter Text Encounter Status:Closed by STEPHANIE GTZ on 02/18/23 PROGRESS Observed: 01/13/2023 7:00 PM Status: COMPLETED Source: [facility] HNO ID: [id number] Author: Angel Cotton MD Service: ? Author Type: Physician Type: Progress Notes Filed: 01/13/2023 7:11 PM Note Text: Chief Complaint Patient presents with: Illness HPI: This Team Access Model visit is a virtual/phone encounter. It required patient-provider interaction for the medical decision making as documented below. Patient was offered a virtual/telemedicine appointment in lieu of an office visit due to recommendations to reduce patient exposure to COVID-19. Patient is aware of limitations of performing the visit without a face to face visit in the office setting and agrees. I have communicated my name and active licensure. The patient's identity and physical location were verified at the time of this visit. Either the patient or their legal union representative has been informed of the risks and benefits of -- and alternatives to -- treatment through a remote evaluation and consents to proceed with the evaluation remotely. Pt c/o fatigue, headache, wheezing, SOB, body aches and muscle soreness, cough, temp running 97.6 to 100.2 since Friday. She has been using her inhaler and Advil which were helpful until last night. She took a Covid test Friday that was negative and on Friday which was also negative. Stated she was going to test again today. Tested negative again today. Not taking any OTC medication to treat sx. Started having nasal congestion about an hour ago. Past medical history, appointments, medications, allergies reviewed. Previous Medical History PAST MEDICAL HISTORY Diagnosis Date Asthma Cholecystitis with cholelithiasis Colitis GERD (gastroesophageal reflux disease) PCOS (polycystic ovarian syndrome) Rectal bleeding Umbilical hernia Previous Surgical History PAST SURGICAL HISTORY Procedure Laterality Date CHOLECYSTECTOMY HX COLONOSCOPY 02/19/2018 Dr. Joel Barbour, [facility] PAST SURGICAL HISTORY OF PAST SURGICAL HISTORY OF adeniods/tonsillectomy Family History FAMILY HISTORY Problem Relation Age of Onset Allergies Father Allergies Son Asthma Son 2 sons have Cancer Maternal Grandfather Breast Cancer Paternal Grandfather lung Cancer Paternal Grandfather Patient Allergies ALLERGIES No Known Allergies Current Medications Current Outpatient Medications on File Prior to Visit Medication Sig albuterol HFA (VENTOLIN HFA) 90 mcg/actuation inhaler Inhale 2 Puffs as instructed every 4 hours as needed for wheezing/shortness of breath. phenazopyridine (PYRIDIUM) 200 mg tablet Take 1 tablet by mouth three times daily as needed. DULoxetine (CYMBALTA) 60 mg capsule Take 1 capsule by mouth once daily. Take along with 30 mg dose for a total of 90 mg daily DULoxetine (CYMBALTA) 30 mg capsule Take 1 capsule by mouth once daily. Take along with 60 mg dose for a total of 90 mg daily benzonatate (TESSALON PERLES) 100 mg capsule Take 1 capsule by mouth three times daily as needed for cough. pantoprazole DR (PROTONIX) 40 mg tablet Take 40 mg by mouth once daily. ondansetron (ZOFRAN) 4 mg tablet Take 1 tablet by mouth every 8 hours as needed. No current facility-administered medications on file prior to visit. Social History Social History Tobacco Use Smoking status: Never Smokeless tobacco: Never Vaping Use Vaping Use: Never used Substance Use Topics Alcohol use: No Drug use: No EXAM: LMP 07/12/2022 (Approximate) Video exam: NAD< occ cough, no resp distress Health Maintenance List HEPATITIS B(1 of 3 - 3-dose series) Never done HEPATITIS C SCREENING Never done HIV SCREENING Never done DEPRESSION ASSESSMENT Never done MAMMOGRAM due on 06/14/2023 PAP TESTING due on 04/11/2027 HPV TESTING due on 04/11/2027 DTAP,TDAP,TD(2 - Td or Tdap) due on 07/25/2030 INFLUENZA Completed COVID-19 VACCINE Completed Data reviewed none ASSESSMENT/PLAN: 1. Acute bronchitis, unspecified organism - ICD9: 466.0, ICD10: J20.9 (primary diagnosis) - AZITHROMYCIN 250 MG TABLET - PREDNISONE 20 MG TABLET 2. Mild intermittent asthma with acute exacerbation - ICD9: 493.92, ICD10: J45.21 - AZITHROMYCIN 250 MG TABLET - PREDNISONE 20 MG TABLET Call if not improving in 5-7 days I agree with the Chief Complaint, ROS, and Past Histories independently gathered by the clinical manager sales support and the remaining scribed note accurately describes my personal service to the patient. Angel Cotton MD The documentation for this note was completed by Linda Bassett Ma acting as scribe for Angel Cotton MD. January 13, 2023 6:45 PM. Linda Bassett Ma ALLERGIES DATE TYPE / CODE NAME / CODE REACTION SEVERITY SOURCE Drug Class/[id number]([facility] [place] [facility] [place]) [facility]/DISCHARGE ACCOUNT NUMBER ADMITTING ENCOUNTER CLASS LOC ATION SOURCE 10/31/2023/ 4 [id number] Ambulatory [facility] 10/16/2023/ 3 [id number] Ambulatory [facility] 10/16/2023/ 3 [id number] Ambulatory [facility] ing:[facility] 09/09/2023/ 3 [id number] Ambulatory [facility] ing:[facility] 09/08/2023/ 3 [id number] Ambulatory [facility] ing:[facility] 08/23/2023/ 3 [id number] Ambulatory [facility] ing:[facility] 08/14/2023/ 3 [id number] Ambulatory [facility] Hospital[facility] ing:[facility] 06/05/2023/ 3 [id number] Ambulatory [facility] Hospital[facility] ing:[facility] 05/10/2023/ 3 [id number] Ambulatory [facility] Hospital[facility] ing:[facility] 03/10/2023/ 3 [id number] Ambulatory [facility] HospitalBuild ing:[facility] 02/18/2023/ 3 [id number] Ambulatory [facility] HospitalBuild ing:[facility] 01/13/2023/ 3 [id number] Ambulatory [facility] Hospital[facility] ing:[facility] PAYERS ENCOUNTER GUARANTOR PAYER SUBSCRIBER SOURCE 10/31/2023 Primary Insurance:BLUE ACCESS OPolicy Number: [id number] Date:7369-86-07Konn Name:Alix ALICIA: [id number] [place] [address] [facility] 10/16/2023 Primary Insurance:BLUE ACCESS PPOPolicy Number: [id number] Date:8129-88-46Bjic Name:Alix TALLEYCHARISSA: [id number] [place] [address] [facility] 10/16/2023 Primary Insurance:BLUE ACCESS PPOPolicy Number: [id number] Date:8454-36-22Byac Name:Alix Cruz MARAL: [id number] [place] [address] [facility] 09/09/2023 Primary Insurance:BLUE ACCESS PPOPolicy Number: [id number] Date:7672-89-03Fxof Name:Alix Cruz MARAL: [id number] [place] [address] [facility] 09/08/2023 Primary Insurance:BLUE ACCESS PPOPolicy Number: [id number] Date:8295-99-74Ecqg Name:Alix Cruz MARAL: [id number] [place] [address] [facility] 08/23/2023 Primary Insurance:BLUE ACCESS PPOPolicy Number: [id number] Date:5196-46-57Yzjv Name:Alix Cruz MARAL: [id number] [place] [address] [facility] 08/14/2023 Primary Insurance:BLUE ACCESS PPOPolicy Number: [id number] Date:0927-39-58Yagu Name:Alix Cruz MARAL: [id number] [place] [address] [facility] 06/05/2023 Primary Insurance:BLUE ACCESS PPOPolicy Number: [id number] Date:7211-70-77Qrrx Name:Alix Cruz MARAL: [id number] [place] [address] [facility] 05/10/2023 Primary Insurance:BLUE ACCESS PPOPolicy Number: [id number] Date:0081-53-41Blod Name:Alix ALICIA: [id number] [place] [address] [facility] 03/10/2023 Primary Insurance:BLUE ACCESS PPOPolicy Number: [id number] Date:5324-41-09Htvr Name:Ailx ALICIA: [id number] [place] [address] [facility] 02/18/2023 Primary Insurance:BLUE ACCESS PPOPolicy Number: [id number] Date:8673-28-52Akzz Name:Alix ALICIA: [id number] [place] [address] [facility] 01/13/2023 Primary Insurance:BLUE ACCESS PPOPolicy Number: [id number] Date:5237-85-94Ccmj Name:Alix ALICIA: [id number] [place] [address] [facility]
[2023-12-15 05:24] LABS: Absolute Lymphocyte Count 1.77 X10^3/uL (0.83-4.51); Absolute Neutrophil Count 5.7 X10^3/uL (2.0-7.7); Basophil# 0.05 X10^3/uL; Basophil% 0.6 % (0-1); Eosinophil# 0.29 X10^3/uL; Eosinophils% 3.4 % (0-5); Hematocrit 41.8 % (37-47); Hemoglobin 13.6 g/dL (12.0-15.0); Lymphocyte # 1.77 X10^3/ul (0.83-4.51); Lymphocyte % 20.9 % (19-41); Mean Corp Hgb Conc 32.5 g/dL (32-36); Mean Corpuscular Hgb 28.7 pg (27.0-32.0); Mean Corpuscular Volume 88.2 fL (81-99); Mean Platelet Vol. 11.7 fl (6.2-12.0); Monocyte# 0.64 X10^3/uL; Monocyte% 7.6 % (0-10); NRBC Flagged by Analyzer 0 % (0-5); Neutrophil # 5.67 X10^3/uL (2.7-7.7); Neutrophil % 67.1 % (47-70); Platelet Count 206 K/mm3 (150-450); RBC Distribution Width CV 12.6 % (11.6-14.6); Red Blood Count 4.74 M/mm3 (4.2-5.4); White Blood Count 8.5 K/mm3 (4.4-11.0)
[2023-12-15 05:24] LABS: Mucous, Urine 0 SEEN /hpf (<or=2+)
[2023-12-15 05:27] LABS: Color, Urine Yellow (Yellow); Glucose, Dipstick Normal (Normal); Ketone-Dipstick Negative (Negative); Leukocyte Esterase-Dipstick Negative /ul (Negative); Nitrite-Dipstick Negative (Negative); Occult Blood-Urine Negative /ul (Negative); Protein-Dipstick Negative (Negative); Urine Bilirubin Dipstick Negative (Negative); Urine Clarity Clear (Clear); Urine Urobilinogen Normal (Normal)
[2023-12-15 05:54] LABS: ALB/GLOB Ratio 1.1 RATIO (0.9-2.4); AST(SGOT) 30 U/L (15-37); Alanine Aminotransfer ALT/SGPT 25 U/L (13-56); Albumin, Serum 3.3 g/dL (3.2-5.0); Alkaline Phosphatase 99 U/L (45-117); Anion Gap 5 (5-15); BUN 13 mg/dL (7-18); BUN/Creat Ratio 16.8 RATIO (10-20); Calcium,Total 8.5 mg/dL (8.5-10.1); Chloride 107 mmol/L (98-107); Creatinine, Serum 0.78 mg/dL (0.55-1.02); EST Glomerular Filtration Rate 86 mL/min (>60); Est Glom Filt Rate - Afr Amer 104 mL/min (>60); Estimated Creatinine Clearance 101.21 ml/min; Globulin 3.1 g/dL (2.2-4.2); Glucose 111 mg/dL (74-106); Potassium 3.8 mmol/L (3.5-5.1); Protein, Total 6.4 g/dL (6.4-8.2); Sodium Level 139 mmol/L (136-145)
[2023-12-15 06:09] LABS: Bacteria RARE /hpf (None Seen); Red Blood Cells-Urine 0-5 SEEN /hpf (0-5); Squamous Epithelial Cells - UA 5-10 SEEN /hpf (5-10); White Blood Cells 0-5 SEEN /hpf (0-5)
[2023-12-15 07:15] VITALS: BP 117/74; PULSE 91; RESP 16; O2SAT 99
--- NOTE | 2023-12-15 07:56 | ED.RN ---
Patient aware results are all back. Dr Eng to see patient.
[2023-12-15 08:09] VITALS: BP 114/71; PULSE 78; RESP 16; TEMP 35.8; O2SAT 100
== END 2023-12-15 08:11 | disposition home or self-care (01) ==
PROVIDERS: Emergency Provider Emergency Medicine; PCP Family Medicine; Visit Provider Emergency Medicine
DX: N83.201 Unspecified ovarian cyst, right side (principal); R11.2 Nausea with vomiting, unspecified; Z90.49 Acquired absence of other specified parts of digestive tract; Z90.710 Acquired absence of both cervix and uterus; J45.909 Unspecified asthma, uncomplicated; R10.9 Unspecified abdominal pain
CPT/HCPCS: 74177; 80053; 81001; 85025; 96361; 96374; 96375; 99282; J7030; Q9967; A4216; J2405

== ENCOUNTER 2025-02-11 11:51 | Emergency (ER) | payer BC, SELFPAY ==
[2025-02-11] VITALS (10 sets, daily range): BP systolic 84–120; BP diastolic 55–89; PULSE 63–91; RESP 16–21; TEMP 36.4–36.7; O2SAT 97–99; BMI 42.0
--- NOTE | 2025-02-11 12:09 | ED.VIS.CHEST ---
HPI History of Present Illness Chief Complaint: Chest Pain Narrative Narrative: Patient is a 44-year-old female past medical history of anxiety, GERD, PCOS, migraines, asthma who presented to the emergency department the chief complaint of chest tightness. Patient states that she was at her primary care physician's office they did an EKG told him that she has been having chest tightness off and on for the last 2 weeks and they immediately sent her here to the emergency department to be evaluated. Patient states that when she goes up and down stairs or exerts herself she seems that this makes her symptoms worse and they get better with rest. States that currently here in the emergency department she feels like she has chest tightness but denies any specific pain currently. Patient originally thought this was related to her anxiety therefore she was waiting to see if things would get better. Patient denies any family history of early heart attacks or early cardiac . Patient denies any recent travels or history of blood clots. [facility] Medical History Wears glasses Anxiety GERD (gastroesophageal reflux disease) Non-smoker Migraines PCOD (polycystic ovarian disease) History of back problems Blood in stool Asthma Constipation Home Medications ?Medication ?Instructions ?Recorded ?Last Taken ?Type albuterol sulfate 90 mcg/actuation 2 puff inhalation Q4H PRN ASTHMA 10/15/22 Unknown History aerosol inhaler sertraline 100 mg tablet 100 mg PO DAILY 02/11/25 02/10/25 History Allergy/AdvReac Type Severity Reaction Status Date / Time No Known Allergies Allergy Verified 02/11/25 11:52 Family History Grandfather Colon cancer Father Diabetes Brother Diabetes Surgical History S/P colonoscopy History of laparoscopic cholecystectomy History of section History of tonsillectomy and adenoidectomy Social History Smoking Status: Never smoker alcohol intake: never substance use type: does not use ROS ROS ED ROS Narrative Constitutional: Denies any fevers, chills, headaches Cardiovascular: Complains of chest pressure denies any palpitations Respiratory: Denies cough or wheezing shortness of breath Abdomen: Denies abdominal pain nausea vomit diarrhea Neurological: Denies numbness, weakness, tingling Musculoskeletal: Denies back pain Skin: Denies any rashes or lesions EXAM Physical Exam Narrative Exam Narrative: General: Patient lying in bed rest comfortably did not appear to be in acute distress Head: Atraumatic, normocephalic Eyes: PERRL bilaterally, EOMI bilaterally, no conjunctival injection noted Neck: Soft, supple, trachea midline Cardiovascular: Regular rate and rhythm Respiratory: Clear to auscultation bilaterally Extremities: +5/5 strength noted in the bilateral upper and lower extremities, radial pulses +2/4 in the bilateral extremities Neurological: Patient following commands and that she was at [facility] there is 2024 Skin: Warm, dry, intact no rashes or lesions noted Const Vital Signs: 02/11/25 11:52 02/11/25 12:17 02/11/25 12:18 Temperature 98.1 F Temperature Source Oral Pulse Rate 91 91 Respiratory Rate 18 Respiratory Effort Blood Pressure 120/89 H 119/78 Blood Pressure Mean 99 Pulse Ox 97 97 Oxygen Delivery Method Room Air Room Air 02/11/25 12:18 02/11/25 12:24 02/11/25 12:30 Temperature Temperature Source Pulse Rate 70 73 Respiratory Rate 16 18 Respiratory Effort Normal Blood Pressure 84/55 L 94/62 Blood Pressure Mean 64 72 Pulse Ox 98 98 Oxygen Delivery Method Room Air Room Air 02/11/25 12:57 02/11/25 13:00 02/11/25 14:05 Temperature Temperature Source Pulse Rate 71 63 Respiratory Rate 21 H 16 Respiratory Effort Blood Pressure 106/68 96/64 103/63 Blood Pressure Mean 80 74 76 Pulse Ox 97 98 Oxygen Delivery Method Room Air Room Air MDM MDM MDM Narrative Medical decision making narrative: Patient is a 44-year-old female who presented to the emergency department the chief complaint of chest tightness. On the differential diagnosis includes but not limited to ACS, pneumothorax, anxiety, PE however low suspicion for this based on revised Crosslake score. Patient be given nitro as well as aspirin and be reevaluated. Crosslake Score (Revised) for Pulmonary Embolism from [employer] on 02/11/2025 All calculations should be rechecked by clinician prior to use RESULT SUMMARY: 3 points Low risk group: 7-9% incidence of PE from several studies. INPUTS: Age >65 ?> 0 = No Previous DVT or PE ?> 0 = No Surgery (under general anesthesia) or lower limb fracture in past month ?> 0 = No Active malignant condition ?> 0 = No Unilateral lower limb pain ?> 0 = No Hemoptysis ?> 0 = No Heart rate ?> 3 = 75-94 Pain on lower limb palpation and unilateral edema ?> 0 = No HEART Score for Major Cardiac Events from [employer] on 02/11/2025 All calculations should be rechecked by clinician prior to use RESULT SUMMARY: 3 points Low Score (0-3 points) Risk of MACE of 0.9-1.7%. INPUTS: History ?> 1 = Moderately suspicious EKG ?> 1 = Non-specific repolarization disturbance Age ?> 0 = <45 Risk factors ?> 1 = 1-2 risk factors Initial troponin ?> 0 = <=ormal limit Patient's CBC was reviewed showed no evidence leukocytosis white blood count normal at 7.1, hemoglobin 14.5, plate count normal at 223. Patient's sodium normal at 139, potassium normal at 4.3, creatinine was normal at 0.72. Patient's troponin was less than 6 delta troponin pending and proBNP was less than 36. Patient's EKG did show nonspecific ST depressions noted in the leads V1 and V2 as well as 2 and 3 however when compared to her previous EKG from March 27, 2020 these changes were also noted and are unchanged. Patient chest x-ray reviewed by myself and by radiology which showed no acute cardiopulmonary processes. Patient was ambulated here in the emergency department no evidence hypoxia. Patient delta troponin reviewed showed a troponin of less than 6. Discussed case with on-call employee communications coordinator Dr. Gomez and he states that the patient can follow-up with the cardiology team in the outpatient setting as well as her primary care physician. I discussed this with the patient as well as her results and her significant other at bedside. They are agreeable with plan all question concerns answered she was discharged home in stable condition. She was encouraged return with worsening symptoms or concerns Lab Data Labs: Laboratory Results - last 24 hr 02/11/25 02/11/25 12:05 14:00 WBC 7.1 RBC 4.92 Hgb 14.5 Hct 43.0 MCV 87.4 MCH 29.5 MCHC 33.7 RDW Std Deviation 39.3 RDW Coeff of Davy 12.2 Plt Count 223 MPV 11.7 Immature Gran % (Auto) 0.400 Neut % (Auto) 68.7 Lymph % (Auto) 22.3 Hawkins % (Auto) 6.6 Eos % (Auto) 1.6 Baso % (Auto) 0.4 Absolute Neuts (auto) 4.9 Absolute Lymphs (auto) 1.58 Nucleated RBC % 0 Sodium 139 Potassium 4.3 Chloride 105 Carbon Dioxide 21.8 Anion Gap 13 BUN 13 Creatinine 0.72 Estim Creat Clear Calc 113.00 Est GFR (MDRD) Non-Af 105 BUN/Creatinine Ratio 17.3 Glucose 95 Calcium 9.2 Troponin T High Sens < 6 Troponin T Hi Sens 2 Hr < 6 NT pro BNP II < 36 Radiography Diagnostic Testing: Clinical Impression(s) from Imaging Studies Chest X-Ray 02/11/25 12:45 IMPRESSION: No active cardiopulmonary disease.. Reading Location: [facility] Discharge Plan Triage Chief Complaint: Chest Pain ED Provider: Luan Moralez Dx/Rx/DC Orders Clinical Impression: Chest pain Prescriptions: No Action albuterol sulfate 90 mcg/actuation HFA aerosol inhaler 2 puff INHALATION Q4H PRN (Reason: ASTHMA) Patient Comments: Inhale 2 Puffs as instructed every 4 hours as needed for wheezing/shortness of breath. sertraline 100 mg tablet 100 mg PO DAILY Patient Comments: PT TAKES AT NIGHT Primary Care Provider: Tom Gonzáles Referrals: Tom Gonzáles MD [Primary Care Provider] - Gail Gomez MD [Med Staff - Active Staff] - Activity Restrictions/Additional Instructions: Your blood work here today did not show any acute findings. Follow-up with cardiology team in the outpatient setting as well as your primary care physician. Return with worsening symptoms or concerns. Print Language: Sami Disposition Disposition: Home, Self Care
[2025-02-11] MEDS: Aspirin 325 MG Tablet PO (12:16)
[2025-02-11] MEDS: Nitroglycerin SL (ED/IMG/CATH) 0.4 MG TABLET SL (12:17)
[2025-02-11 12:23] LABS: Absolute Lymphocyte Count 1.58 X10^3/uL (0.83-4.51); Absolute Neutrophil Count 4.9 X10^3/uL (2.0-7.7); Basophil# 0.03 X10^3/uL; Basophil% 0.4 % (0-1); Eosinophil# 0.11 X10^3/uL; Eosinophils% 1.6 % (0-5); Hemoglobin 14.5 g/dL (12.0-15.0); Lymphocyte # 1.58 X10^3/ul (0.83-4.51); Lymphocyte % 22.3 % (19-41); Mean Corp Hgb Conc 33.7 g/dL (32-36); Mean Corpuscular Hgb 29.5 pg (27.0-32.0); Mean Corpuscular Volume 87.4 fL (81-99); Mean Platelet Vol. 11.7 fl (6.2-12.0); Monocyte# 0.47 X10^3/uL; Monocyte% 6.6 % (0-10); NRBC Flagged by Analyzer 0 % (0-5); Neutrophil # 4.86 X10^3/uL (2.7-7.7); Neutrophil % 68.7 % (47-70); Platelet Count 223 K/mm3 (150-450); RBC Distribution Width CV 12.2 % (11.6-14.6); RBC Distribution Width SD 39.3 fl (35.1-43.9); Red Blood Count 4.92 M/mm3 (4.2-5.4); White Blood Count 7.1 K/mm3 (4.4-11.0)
--- NOTE | 2025-02-11 12:45 | RAD_ITS ---
PROCEDURE: CHEST PA AND LATERAL 02/11/2025 REASON FOR EXAM: CHEST PAIN TECHNIQUE: Frontal and lateral views of the chest. COMPARISON: No relevant prior. FINDINGS: Lungs: Lungs clear of pneumonia and congestion. Pleura: No pleural effusions, thickening, or pneumothorax. Heart: Normal in size and configuration. Mediastinum/Mandie: Unremarkable. Great vessels: Unremarkable. Bones/soft tissues: Unremarkable. Cardiac monitoring leads overlie the chest wall. RAD/Chest PA and Lateral IMPRESSION: No active cardiopulmonary disease.. Reading Location: [facility]
[2025-02-11 12:47] LABS: Troponin T High Sensitivity < 6 ng/L (<=14)
[2025-02-11 13:00] LABS: Anion Gap 13 (5-15); BUN 13 mg/dL (4-19); BUN/Creat Ratio 17.3 RATIO (10-20); Calcium,Total 9.2 mg/dL (7.6-11.0); Carbon Dioxide 21.8 mmol/L (21.0-32.0); Chloride 105 mmol/L (98-108); Creatinine, Serum 0.72 mg/dL (0.70-1.20); EST Glomerular Filtration Rate 105 (>60); Glucose 95 mg/dL (70-99); Potassium 4.3 mmol/L (3.3-5.1); Sodium Level 139 mmol/L (133-145)
[2025-02-11 13:26] LABS: Pro- Brain NATRIURETIC PEPTIDE < 36 pg/mL (<=450)
[2025-02-11 14:44] LABS: Troponin T High Sens 2 HR < 6 ng/L (<=14)
== END 2025-02-11 15:15 | disposition home or self-care (01) ==
PROVIDERS: Emergency Provider Emergency Medicine; PCP Family Medicine; Visit Provider Emergency Medicine
DX: R07.9 Chest pain, unspecified (principal); F41.9 Anxiety disorder, unspecified; K21.9 Gastro-esophageal reflux disease without esophagitis; E28.2 Polycystic ovarian syndrome; J45.909 Unspecified asthma, uncomplicated; Z90.49 Acquired absence of other specified parts of digestive tract
CPT/HCPCS: 71046; 80048; 83880; 84484; 85025; 93005; 99283; A4216

== ENCOUNTER 2025-08-16 12:53 | Outpatient (CLI) | payer BC, SELFPAY ==
--- NOTE | 2025-08-16 12:58 | CT_ITS ---
PROCEDURE: LIMITED CHEST CT CARDIAC ONLY 08/16/2025 REASON FOR EXAM: CHEST TIGHTNESS TECHNIQUE: Procedure Code: [id number] Modality: CT Procedure: LIMITED CHEST CT CARDIAC ONLY One or more dose reduction techniques were used (e.g., Automated exposure control, adjustment of the mA and/or kV according to patient size, use of iterative reconstruction technique). RADIATION DOSE SUMMARY: DLP: 2312.51 mGycm COMPARISON: None. CT/Limited Chest CT Cardiac Only IMPRESSION: Limited imaging of the lungs demonstrates no acute process. No pleural effusion or pneumothorax is seen in visualized areas. No adenopathy is noted. The visualized upper abdomen demonstrates no significant abnormality. Reading Location: [place] [address]
[2025-08-16 13:17] VITALS: BP 138/81; PULSE 90; RESP 16; TEMP 36.8; O2SAT 98; BMI 37.1
[2025-08-16 13:28] VITALS: BP 124/80; PULSE 90
[2025-08-16] MEDS: 0.9% Saline Lock 10 ML Syringe IV (13:31)
[2025-08-16 13:33] VITALS: BP 136/88; PULSE 72; RESP 16; O2SAT 98
[2025-08-16 13:36] VITALS: BP 125/71; PULSE 68; RESP 16; O2SAT 98
[2025-08-16 13:41] VITALS: BP 125/71; PULSE 68
[2025-08-16] MEDS: Nitroglycerin SL (ED/IMG/CATH) 0.4 MG TABLET SL (13:41)
[2025-08-16 13:52] VITALS: BP 114/69; PULSE 76; RESP 16; O2SAT 96
--- NOTE | 2025-08-18 19:11 | CCTA_ITS ---
CCTA w/Cont Coronary Arteries Date of Study:: 08/16/25 Chest pain Coronary Calcium Scoring: High-resolution Computed Tomographic imaging of the chest was performed on [08/16/2025], with particular attention paid to the coronary arteries. Intravenous contrast agent was administered per protocol and images reconstructed and displayed. LEFT MAIN CORONARY ARTERY: Arises from the left coronary cusp and is noted to be normal and bifurcates the left anterior descending artery and left circumflex artery [] LEFT ANTERIOR DESCENDING CORONARY ARTERY: Arises from the left main coronary artery with no significant atherosclerotic plaquing noted [] LEFT CIRCUMFLEX CORONARY ARTERY: Arises from the left main coronary artery and is nondominant with no significant atherosclerotic plaquing or calcification not ed [] RIGHT CORONARY ARTERY: Dominant right coronary artery with no significant atherosclerotic plaquing. [] THORACIC AORTA: [] PULMONARY ARTERY: [] LEFT ATRIUM/APPENDAGE: [] MITRAL VALVE: [] AORTIC VALVE: [] LEFT VENTRICLE: [] CORONARY CALCIUM SCORE:0 [] Findings Coronary Artery Left Main (LM): 0 Left Anterior Descending (LAD): 0 Left Circumflex (LCX): 0 Right Coronary Artery (RCA): 0 Total Agatston Score: 0 Percentile Rankin Calcium Scoring Interpretation: Different methods to categorize the overall amount of coronary plaque. Overall amount CAC SIS Visual of coronary plaque P1 Mild -100 <2 1-2 vessels with mild amount of plaque P2 Moderate 101-300 3-4 1-2 vessels with moderate amount, 3 vessels with mild amount of plaque P3 Severe 301-999 5-7 3 vessels with moderate amount, 1 vessel with severe amount of plaque P4 Extensive >1000 >8 2-3 vessels with severe amount of plaque Conclusion: CT angiogram with a coronary calcium score of 0 on no atherosclerotic plaquing or stenosis noted.
== END 2025-08-16 23:59 | disposition home or self-care (01) ==
PROVIDERS: PCP Family Medicine; Referring Provider Internal Medicine Cardiovascular Disease; Visit Provider Internal Medicine Cardiovascular Disease
DX: R07.89 Other chest pain (principal)
CPT/HCPCS: 75571; 75574; 76380; 96374; Q9967; A4216